=== PATIENT | male | born 1930 | race Caucasian/White ===

== ENCOUNTER 2017-03-15 12:53 | Emergency (ER) | payer MEDICARE, OTHER ==
[~2017-03-15] VITALS: Ht 172.7 cm; Wt 89.0 kg
[~2017-03-15 12:53] MED LIST: ASCO500C15 PO; ASPI-558 PO; BENA10TA46 PO; CARV25TA33 PO; CLOP75TA19 PO; CYAN100063 PO; DONE10TA15 PO; DUTA0.5C9 PO; FAMO10TA76 PO; FERR-22 PO; FURO-33 PO; ISOS30TA46 PO; LEVO25TA51 PO; LUTE20CA3 PO; NITR0.4T28 SL; PIOG1TAB8 PO; POTA20PA17 PO; PYRI50TA PO; SIMV40TA82 PO; TAMS0.4C20 PO; VITA-286 PO; [UNRECOGNIZED DRUG - CODE] PO
[2017-03-15 12:56] VITALS: Ht 172.7 cm; Wt 89.0 kg
--- OUTSIDE RECORDS SUMMARY | 2017-03-15 12:57 | XMS REPORT | Continuity of Care Document ---
Author Author [facility] Organization [facility] Address Unknown Phone Unavailable Allergies Active Description Code Type Severity Reaction Onset Reported/Identified Relationship to Patient Clinical Status Yes aspirin NKMA N/A epistaxis 03/22/2014 Yes glimepiride NKMA N/A SWELLING 05/11/2014 Yes pioglitazone NKMA N/A N/A 05/11/2014 Medications Problems Procedures Results Encounters ACCT No. Visit Date/Time Discharge Status Pt. Type Provider Facility Loc./Unit Complaint [id number] 02/03/2014 08:15:00 02/03/2014 23 :59:59 CLS Outpatient
--- OUTSIDE RECORDS SUMMARY | 2017-03-15 12:57 | XMS REPORT | Referral Summary ---
Author Author [facility], Family Medicine Organization [facility] Address Unknown Phone Unavailable Care Team Providers Care [place]f[employer] Technician Name Role Phone Mac Pat Primary Care Physician [phone] Encounter VC Date(s): 08/07/16 - 08/07/16 [facility], [address] [place] [id number] Discharge Diagnosis: Skin cancer of face Discharge Diagnosis: Diabetes Type 2, uncontrolled Discharge Diagnosis: Visit for suture removal Discharge Disposition: 01-Home or Self Care Attending Physician: Josias Pat MD Admitting Physician: Josias Pat MD Vital Signs Most recent to 1 oldest [Reference Range]: Temperature Tympanic 36.5 degC [36.6-38.1 degC] *LOW* (08/07/16 7:41 AM) Peripheral Pulse 81 bpm Rate [60-100 bpm] (08/07/16 7:41 AM) Blood Pressure 132/52 mmHg [90-140/60-90 mmHg] (08/07/16 7:41 AM) SpO2 97 % (08/07/16 7:41 AM) Problem List Condition Effective Dates Status Health Status Informant Acute Active bronchitis(Confirmed ) Coronary Active disease(Confirmed) Acute exacerbation Active of chronic obstructive pulmonary disease (COPD)(Confirmed) Alzheimer Active disease(Confirmed) Ataxic Active gait(Confirmed) Benign essential Active hypertension(Confirm ed) Hypertension, Active benign(Confirmed) BPH with urinary Active obstruction(Confirme d) CKD (chronic kidney Active disease) stage 3, GFR 30-59 ml/min(Confirmed) Chronic obstructive Active pulmonary disease (COPD)(Confirmed) CAD (coronary artery Active disease)(Confirmed) Dementia(Confirmed) Active Diabetes Type 2, Active uncontrolled(Confirm ed) Diabetic Active nephropathy(Confirme d) Dyspnea with Active exertion(Confirmed) Edema(Confirmed) Active Epistaxis(Confirmed) Active GERD Active (gastroesophageal reflux disease)(Confirmed) Hypercholesterolemia Active (Confirmed) Hypothyroid(Confirme Active d) Seborrheic Active keratoses, inflamed(Confirmed) Hyperlipemia(Confirm Active ed) 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 ) LAURA on Active CPAP(Confirmed) Palpitations(Confirm Active ed) Primary Active hypercholesterolemia (Confirmed) Seborrheic Active keratoses(Confirmed) Diabetes mellitus Active type 2, uncontrolled(Confirm ed) Need for Active wxndqouzxl-tyjrxvl-u ertussis (Tdap) vaccine(Confirmed) Allergies, Adverse Reactions, Alerts Substance Reaction Severity Status aspirin epistaxis Active glimepiride SWELLING Active pioglitazone1 Active 1swelling Medications atorvastatin 40 mg oral tablet See Instructions, TAKE 1 TABLET ONE TIME DAILY AT BEDTIME, # 90 tabs, eRx: [facility], TAKE 1 TABLET ONE TIME DAILY AT BEDTIME Start Date: 08/05/16 Status: Ordered BD Ultra- Fine [place] BD Ultra- Fine [place], See Instructions, dispense 3 mo supply-dx: 250.00, # 3 boxes, 3 Refill(s), Pharmacy: [facility], dispense 3 mo supply- dx: 250.00 Start Date: 07/06/14 Status: Ordered carvedilol 25 mg oral tablet See Instructions, TAKE 1/2 TABLET TWICE DAILY, # 90 tabs, eRx: [facility], TAKE 1/2 TABLET TWICE DAILY Start Date: 06/19/16 Status: Ordered clopidogrel 75 mg oral tablet See Instructions, TAKE 1 TABLET EVERY DAY, # 90 tabs, eRx: [facility], TAKE 1 TABLET EVERY DAY Start Date: 07/01/16 Status: Ordered donepezil 10 mg oral tablet See Instructions, TAKE 1 TABLET ONE TIME DAILY AT BEDTIME, # 90 tabs, eRx: [facility], TAKE 1 TABLET ONE TIME DAILY AT BEDTIME Start Date: 06/19/16 Status: Ordered Eliquis 5 mg oral tablet 5 mg 1 tabs, Oral, BID, cancel the 2.5 mg dose, # 180 tabs, 3 Refill(s), Pharmacy: [facility], 1 tabs Oral BID,x90 days,Instr:cancel the 2.5 mg dose Start Date: 05/23/16 Stop Date: 05/18/17 Status: Ordered Flomax 0.4 mg oral capsule See Instructions, TAKE 1 CAPSULE EVERY DAY (PLEASE SCHEDULE A COMPLETE PHYSICAL WITH DR PAT), # 90 caps, 2 Refill(s), eRx: [facility], TAKE 1 CAPSULE EVERY DAY (PLEASE SCHEDULE A COMPLETE PHYSICAL WITH DR PAT) Start Date: 11/07/15 Status: Ordered furosemide 20 mg oral tablet 1 tabs, Oral, Daily, Dr. Colmenares, 0 Refill(s) Start Date: 03/17/15 Status: Ordered ipratropium-albuterol 0.5 mg-2.5 mg/3 mLinhalation solution See Instructions, USE ONE AMPULE IN NEBULIZER 4 TIMES DAILY for COPD J43.9, # 360 mL, 0 Refill(s), Pharmacy: [id number] Start Date: 08/05/16 Status: Ordered isosorbide mononitrate 20 mg oral tablet See Instructions, TAKE 1 TABLET TWICE DAILY, # 180 tabs, 2 Refill(s), eRx: [facility], TAKE 1 TABLET TWICE DAILY Start Date: 11/07/15 Status: Ordered Januvia 50 mg oral tablet See Instructions, TAKE 1 TABLET EVERY DAY, # 90 tabs, eRx: [facility], TAKE 1 TABLET EVERY DAY Start Date: 07/23/16 Status: Ordered Klor-Con 10 10 mEq, Oral, Daily, Dr. Colmenares, 0 Refill(s) Start Date: 03/17/15 Status: Ordered Levemir FlexTouch 100 units/mL subcutaneous solution See Instructions, INJECT 37 UNITS SUBCUTANEOUSLY ONE TIME A DAY AT BEDTIME, # 45 mL, 1 Refill(s), eRx: [facility], INJECT 37 UNITS SUBCUTANEOUSLY ONE TIME A DAY AT BEDTIME Start Date: 03/01/16 Status: Ordered levothyroxine 50 mcg (0.05 mg) oral tablet See Instructions, TAKE 1 TABLET EVERY DAY, # 90 tabs, eRx: [facility], TAKE 1 TABLET EVERY DAY Start Date: 07/23/16 Status: Ordered lisinopril 2.5 mg oral tablet See Instructions, TAKE 1 TABLET EVERY DAY, # 90 tabs, eRx: [facility], TAKE 1 TABLET EVERY DAY Start Date: 07/30/16 Status: Ordered lutein 20 mg oral tablet 1 tabs, Oral, Daily, # 30 tabs, 0 Refill(s) Start Date: 05/10/14 Status: Ordered memantine 10 mg oral tablet 5 mg 0.5 tabs, Oral, BID, # 90 tabs, 3 Refill(s), Pharmacy: [facility], 0.5 tabs Oral BID,x90 days Start Date: 05/24/15 Stop Date: 05/18/16 Status: Ordered nitroglycerin 0.4 mg sublingual tablet 1 tabs, SubLingual, q5min, as needed for chest pain, not to exceed 3 doses/15 min--if pain persists, seek medical attention, # 100 tabs, 3 Refill(s), [facility], 1 tabs SubLingual q5min,PRN:as needed for chest pain,Instr: not to exceed 3... Start Date: 10/24/14 Status: Ordered pantoprazole 40 mg oral delayed release tablet See Instructions, TAKE 1 TABLET EVERY DAY, # 90 tabs, eRx: [facility], TAKE 1 TABLET EVERY DAY Start Date: 06/19/16 Status: Ordered Ventolin HFA 90 mcg/inh inhalation aerosol 1 puffs, Inhalation, QID, as needed for wheezing, # 3 Each, 3 Refill(s), Pharmacy: [facility], Discontinue Xopenex, 1 puffs Inhalation QID,PRN:as needed for wheezing Start Date: 05/17/15 Status: Ordered Vitamin B12 2,500 mcg, Oral, Daily, 0 Refill(s) Start Date: 05/10/14 Status: Ordered Results No data available for this section Immunizations Vaccine Date Refusal Reason tetanus/diphth/pertuss (Tdap) adult/adol 08/21/15 influenza virus vaccine, inactivated 08/23/15 influenza virus vaccine, inactivated1 08/22/14 influenza virus vaccine, live 08/03/13 influenza virus vaccine, live 09/01/12 pneumococcal 13-valent conjugate vaccine 08/23/15 pneumococcal 13-valent conjugate vaccine 09/13/14 pneumococcal 23-polyvalent vaccine 10/19/01 tetanus-diphth toxoids (Td) adult/adol 06/09/10 tetanus-diphth toxoids (Td) adult/adol 10/19/01 tetanus-diphth toxoids (Td) adult/adol 10/07/96 zoster vaccine live2 08/23/15 zoster vaccine live 02/06/09 1Result Comment: [08/22/2014] See scanned document 2Result Comment: [08/23/2015] Zostavax [id number] unit Procedures Procedure Date Related Diagnosis Body Site Colonoscopy 2008 Colonoscopy 2006 for small MO 2000 catherization x2 anteriograms 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 It begins in the basal cells, which are at the bottom of the outer skin layer (epidermis). CAUSES Sun exposure is the most common cause of basal cell carcinoma. Basal cell carcinoma occurs most often on parts of the body that are frequently exposed to the sun, including the: Scalp. Ears. Neck. Face. Arms. Backs of the hands. Legs. However, basal cell carcinoma can occur anywhere on the body. Rarely, tumors develop on areas not exposed to the sun. Other causes of basal cell carcinoma can include: Exposure to arsenic. Exposure to radiation. Certain genetic syndromes, such as xeroderma pigmentosum. RISK FACTORS People at highest risk for basal cell carcinoma include those with: Fair skin. Blonde or red hair. Blue, green, or herman eyes. Childhood freckling. Factors that increase your risk for basal cell carcinoma include: Sun exposure over long periods of time. Childhood sun exposure appears to be a more significant factor than sun exposure as an adult. Repeated sunburns. Use of tanning beds. Having a weakened immune system. SYMPTOMS Five signs of basal cell carcinoma are: An open sore that bleeds, oozes, or crusts. The sore may remain open for 3 or more weeks. This can be an early sign of basal cell carcinoma. Basal cell carcinoma can mimic a pimple that will not heal. A reddish or irritated area which may crust, itch, or cause discomfort. This may occur on areas expose d to the sun. These patches might be easier felt than seen. A shiny, pearly, or translucent bump that is pink, red, or white. The bump may also be moe, black, or brown, especially in dark haired people. These bumps can be confused with moles. A pink growth with a slightly elevated, rolled border, and a crusted indentation in the center. As the growth slowly enlarges, tiny blood vessels may develop on the surface. A scar-like white, yellow, or waxy area that looks like shiny, stretched skin. It often has irregular borders. This may be a sign of more aggressive basal cell carcinoma. DIAGNOSIS Your caregiver may be able to tell what is wrong by doing a physical exam. Often , a tissue sample (biopsy) is also taken. The tissue is examined under a microscope. TREATMENT The treatment for basal cell carcinoma depends on the type, size, location, and number of tumors. Possible treatments include: Mohs surgery. This is a procedure done by a skin doctor (night cleaner or Mohs surgeon) in his or her office. The cancerous cells are removed layer by layer. This treatment has a high cure rate. Surgical removal of the tumor. Freezing the tumor with liquid nitrogen (cryosurgery). Plastic surgery to remove the tumor, in the case of large tumors. Radiation. This may be used for tumors on the face. Photodynamic therapy. A chemical cream is applied to the skin and light exposure is used to activate the chemical. Chemical treatments, such as imiquimod cream and interferon injections. This may be used to remove superficial tumors with minimal scarring. Electrodesiccation and curettage. This involves alternately scraping and burning the tumor, using an electric current to control bleeding. Basal cell carcinoma can almost always be cured. It rarely spreads to other areas of the body (metastasizes). Basal cell carcinoma may come back at the same location (recur), but it can be treated again if this occurs. PREVENTION Avoid the sun between 10:00 a.m. and 4:00 pm when it is the strongest. Use a sunscreen or sunblock with a sun protection factor of 30 or greater. Apply sunscreen at least 30 minutes before exposure to the sun. Reapply sunscreen every 2 to 4 hours while you are outside, after swimming, and after excessive sweating. Always wear protective hats, clothing, and sunglasses with ultraviolet protection. Avoid tanning beds. HOME CARE INSTRUCTIONS Avoid unprotected sun exposure. Follow your caregiver's instructions for self-exams. Look for new spots or changes in your skin. Keep all follow-up appointments as directed by your caregiver. SEEK MEDICAL CARE IF: You notice any new spots or changes in your skin. You have had a basal cell carcinoma tumor removed and you notice a new growth in the same location. This information is not intended to replace advice given to you by your health care provider. Make sure you discuss any questions you have with your health care provider. Document Released: 05/16/2004 Document Revised: 05/11/2013 Document Reviewed: [employer] Patient Information 2016 [employer]. No follow up information was provided. Extracted from: Title: suture removal, skin cancer Author: Josias Pat MD Date: Impression and Plan Diagnosis Visit for suture removal ([id number] Z48.02, Discharge, Medical). Skin cancer of face ([id number] C44.319, Discharge, Medical). Diabetes Type 2, uncontrolled ([id number] E11.9, Discharge, Medical). Plan: 1) Sutures easily removed from the left arm. No infection noted. 2) Schedule a lesion excision for the left facial skin cancer. 3) No changes made to your routine meds.. Orders Orders (Selected) Outpatient Orders Ordered Office Visit Level 2 Est 45189: . Dx/Order Association Plan: Diagnosis: Diabetes Type 2, uncontrolled Comment: Ordered: Office Visit Level 2 Est 67186; 08/07/16 13:09:00 CDT, Skin cancer of face | Visit for suture removal | Diabetes Type 2, uncontrolled Diagnosis: Skin cancer of face Comment: Ordered: Office Visit Level 2 Est 86374; 08/07/16 13:09:00 CDT, Skin cancer of face | Visit for suture removal | Diabetes Type 2, uncontrolled Diagnosis: Visit for suture removal Comment: Ordered: Office Visit Level 2 Est 99304; 08/07/16 13:09:00 CDT, Skin cancer of face | Visit for suture removal | Diabetes Type 2, uncontrolled End of Orders ."
--- OUTSIDE RECORDS SUMMARY | 2017-03-15 12:57 | XMS REPORT | Referral Summary ---
Author Author [facility], Family Medicine Organization [facility] Address Unknown Phone Unavailable Care Team Providers Care Technician Preventative Medicine Name Role Phone Mac Pat Primary Care Physician [phone] Encounter VC Date(s): 08/21/15 - 08/21/15 [facility] [address] [place] [id number] Discharge Disposition: 01-Home or Self Care Attending Physician: Josias Pat MD Admitting Physician: Josias Pat MD Vital Signs Most recent to 1 oldest [Reference Range]: Temperature Tympanic 36.5 degC [36.6-38.1 degC] *LOW* (08/21/15 8:57 AM) Peripheral Pulse 88 bpm Rate [60-100 bpm] (08/21/15 8:57 AM) Blood Pressure 142/58 mmHg [90-140/60-90 mmHg] *HI* (08/21/15 8:57 AM) SpO2 97 % (08/21/15 8:57 AM) Problem List Condition Effective Dates Status [...] Active (gastroesophageal reflux disease)(Confirmed) Hypercholesterolemia Active (Confirmed) Hyperlipemia(Confirm Active ed) Hypothyroid(Confirme Active d) Seborrheic Active keratoses, inflamed(Confirmed) 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 ) LAURA on Active CPAP(Confirmed) Palpitations(Confirm Active ed) Primary Active hypercholesterolemia (Confirmed) Seborrheic Active keratoses(Confirmed) Diabetes mellitus Active type 2, uncontrolled(Confirm ed) Need for Active ibytlilxam-skpxmif-s ertussis (Tdap) vaccine(Confirmed) Allergies, Adverse Reactions, Alerts Substance Reaction Severity Status aspirin epistaxis Active glimepiride SWELLING Active pioglitazone1 Active 1swelling Medications atorvastatin 40 mg oral tablet See Instructions, TAKE 1 TABLET ONE TIME DAILY AT BEDTIME, # 90 tabs, 2 Refill(s ), eRx: [facility], TAKE 1 TABLET ONE TIME DAILY AT BEDTIME Start Date: 11/07/15 Status: Ordered BD Ultra- Fine Silke Pen Parlier BD Ultra- Fine Silke Pen Parlier, See Instructions, dispense 3 mo supply-dx: 250.00, # 3 boxes, 3 Refill(s), Pharmacy: [facility], dispense 3 mo supply- dx: 250.00 Start Date: 07/06/14 Status: Ordered carvedilol 25 mg oral tablet See Instructions, TAKE 1/2 TABLET TWICE DAILY, # 90 tabs, 2 Refill(s), eRx: [facility], TAKE 1/2 TABLET TWICE DAILY Start Date: 10/06/15 Status: Ordered donepezil 10 mg oral tablet 5 mg 0.5 tabs, Oral, Daily, X 90 days, # 45 tabs, 3 Refill(s), other reason (Rx) , TAKE 1 TABLET ONE TIME DAILY AT BEDTIME Start Date: 11/22/15 Stop Date: 11/16/16 Status: Ordered Flomax 0.4 mg oral capsule See Instructions, TAKE 1 CAPSULE EVERY DAY (PLEASE SCHEDULE A COMPLETE PHYSICAL WITH DR PAT), # 90 caps, 2 Refill(s), eRx: [facility], TAKE 1 CAPSULE EVERY DAY (PLEASE SCHEDULE A COMPLETE PHYSICAL WITH DR PAT) Start Date: 11/07/15 Status: Ordered furosemide 20 mg oral tablet 1 tabs, Oral, Daily, Dr. Colmenares, 0 Refill(s) Start Date: 03/17/15 Status: Ordered ipratropium-albuterol 0.5 mg-2.5 mg/3 mLinhalation solution 3 mL, Inhalation, QID, DX: COPD-496. Takes them as needed, and usually every evening, # 120 vials, 11 Refill(s), Pharmacy: [id number] Start Date: 07/18/15 Status: Ordered isosorbide mononitrate 20 mg oral tablet See Instructions, TAKE 1 TABLET TWICE DAILY, # 180 tabs, 2 Refill(s), eRx: [facility], TAKE 1 TABLET TWICE DAILY Start Date: 11/07/15 Status: Ordered Januvia 50 mg oral tablet See Instructions, TAKE 1 TABLET EVERY DAY, # 90 tabs, 3 Refill(s), eRx: [facility], TAKE 1 TABLET EVERY DAY Start Date: 07/17/15 Status: Ordered Klor-Con 10 10 mEq, Oral, Daily, Dr. Colmenares, 0 Refill(s) Start Date: 03/17/15 Status: Ordered Levemir FlexTouch 100 units/mL subcutaneous solution See Instructions, INJECT 37 UNITS SUBCUTANEOUSLY ONE TIME A DAY AT BEDTIME, # 45 mL, 1 Refill(s), eRx: [facility], INJECT 37 UNITS SUBCUTANEOUSLY ONE TIME A DAY AT BEDTIME Start Date: 03/01/16 Status: Ordered levothyroxine 50 mcg (0.05 mg) oral tablet See Instructions, TAKE 1 TABLET EVERY DAY, # 90 tabs, 2 Refill(s), eRx: [facility], TAKE 1 TABLET EVERY DAY Start Date: 11/07/15 Status: Ordered lisinopril 2.5 mg oral tablet 2.5 mg 1 tabs, Oral, Daily, # 90 tabs, 3 Refill(s), Pharmacy: [facility] Start Date: 08/21/15 Status: Ordered lutein 20 mg oral tablet 1 tabs, Oral, Daily, # 30 tabs, 0 Refill(s) Start Date: 05/10/14 Status: Ordered memantine 10 mg oral tablet 5 mg 0.5 tabs, Oral, BID, # 90 tabs, 3 Refill(s), Pharmacy: [facility], 0.5 tabs Oral BID,x90 days Start Date: 05/24/15 Stop Date: 05/18/16 Status: Ordered nitroglycerin 0.4 mg sublingual tablet 1 tabs, SubLingual, q5min, as needed for chest pain, not to exceed 3 doses/15 min--if pain persists, seek medical attention, # 100 tabs, 3 Refill(s), Pharmacy : [facility], 1 tabs SubLingual q5min,PRN:as needed for chest pain,Instr: not to exceed 3... Start Date: 10/24/14 Status: Ordered pantoprazole 40 mg oral delayed release tablet See Instructions, TAKE 1 TABLET EVERY DAY, # 90 tabs, 3 Refill(s), eRx: [facility], TAKE 1 TABLET EVERY DAY Start Date: 07/17/15 Status: Ordered Plavix 75 mg oral tablet See Instructions, TAKE 1 TABLET EVERY DAY, # 90 tabs, 3 Refill(s), eRx: [facility], TAKE 1 TABLET EVERY DAY Start Date: 07/17/15 Status: Ordered Ventolin HFA 90 mcg/inh inhalation aerosol 1 puffs, Inhalation, QID, as needed for wheezing, # 3 Each, 3 Refill(s), Pharmacy: [facility], Discontinue Xopenex, 1 puffs Inhalation QID,PRN:as needed for wheezing Start Date: 05/17/15 Status: Ordered Vitamin B12 2,500 mcg, Oral, Daily, 0 Refill(s) Start Date: 05/10/14 Status: Ordered Results Chemistry Most recent to 1 oldest [Reference Range]: Chol [0-199 mg/dL] 180 mg/dL (08/21/15 10:45 AM) Trig [0-149 mg/dL] 116 mg/dL (08/21/15 10:45 AM) HDL [40-84 mg/dL] 62 mg/dL (08/21/15 10:45 AM) LDL [0-130 mg/dL] 95 mg/dL (08/21/15 10:45 AM) VLDL Cholesterol 23 mg/dL [0-28 mg/dL] (08/21/15 10:45 AM) Cardiac Risk 2.9 [0.0-5.7] (08/21/15 10:45 AM) TSH [0.35-4.94] 2.82 (08/21/15 10:45 AM) Hgb A1c [4.1-5.6 %] 6.9 % *HI* (08/21/15 10:45 AM) eAvg Glucose 151.3 mg/dL (08/21/15 10:45 AM) Immunizations Vaccine Date Refusal Reason tetanus/diphth/pertuss (Tdap) [...] See scanned document 2Result Comment: [08/23/2015] Zostavax 36128 unit Procedures Procedure Date Related Diagnosis Body Site Colonoscopy 2008 Colonoscopy 2006 for small [place] 1999 catherization x2 anteriograms 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 This may cause the skin on your feet to become thinner, break easier, and heal more slowly. Your skin may become dry, and the skin may peel and crack. You may also have nerve damage in your legs and feet causing decreased feeling in them. You may not notice minor injuries to your feet that could lead to infections or more serious problems. Taking care of your feet is one of the most important things you can do for yourself. HOME CARE INSTRUCTIONS Wear shoes at all times, even in the house. Do not go barefoot. Bare feet are easily injured. Check your feet daily for blisters, cuts, and redness. If you cannot see the bottom of your feet, use a mirror or ask someone for help. Wash your feet with warm water (do not use hot water) and mild soap. Then pat your feet and the areas between your toes until they are completely dry. Do not soak your feet as this can dry your skin. Apply a moisturizing lotion or petroleum jelly (that does not contain alcohol and is unscented) to the skin on your feet and to dry, brittle toenails. Do not apply lotion between your toes. Trim your toenails straight across. Do not dig under them or around the cuticle. File the edges of your nails with an emery board or nail file. Do not cut corns or calluses or try to remove them with medicine. Wear clean socks or stockings every day. Make sure they are not too tight. Do not wear knee-high stockings since they may decrease blood flow to your legs. Wear shoes that fit properly and have enough cushioning. To break in new shoes, wear them for just a few hours a day. This prevents you from injuring your feet. Always look in your shoes before you put them on to be sure there are no objects inside. Do not cross your legs. This may decrease the blood flow to your feet. If you find a minor scrape, cut, or break in the skin on your feet, keep it and the skin around it clean and dry. These areas may be cleansed with mild soap and water. Do not cleanse the area with peroxide, alcohol, or iodine. When you remove an adhesive bandage, be sure not to damage the skin around it. If you have a wound, look at it several times a day to make sure it is healing. Do not use heating pads or hot water bottles. They may burn your skin. If you have lost feeling in your feet or legs, you may not know it is happening until it is too late. Make sure your health care provider performs a complete foot exam at least annually or more often if you have foot problems. Report any cuts, sores, or bruises to your health care provider immediately. SEEK MEDICAL CARE IF: You have an injury that is not healing. You have cuts or breaks in the skin. You have an ingrown nail. You notice redness on your legs or feet. You feel burning or tingling in your legs or feet. You have pain or cramps in your legs and feet. Your legs or feet are numb. Your feet always feel cold. SEEK IMMEDIATE MEDICAL CARE IF: There is increasing redness, swelling, or pain in or around a wound. There is a red line that goes up your leg. Pus is coming from a wound. You develop a fever or as directed by your health care provider. You notice a bad smell coming from an ulcer or wound. Document Released: 11/07/2001 Document Revised: 07/13/2014 Document Reviewed: [facility] Patient Information 2015 [employer]. This information is not intended to replace advice given to you by your health care provider. Make sure you discuss any questions you have with your health care provider. Diabetic Nephropathy Diabetic nephropathy is a complication of diabetes that leads to damaged kidneys. It develops slowly. The function of healthy kidneys is to filter and clean blood. Kidneys also get rid of body waste products and extra fluid. When the kidney filters are damaged, there is protein loss in the urine, a decline in kidney function, a buildup of kidney waste products and fluid, and high blood pressure. The damage progresses until the kidneys fail. RISK FACTORS High blood pressure (hypertension). High blood sugar (hyperglycemia). Family history. Aging. Obstruction problems affecting the kidneys, the tubes that drain the kidneys (ureters), or the bladder. Taking certain drugs or medicines. SYMPTOMS Symptoms may not be seen or felt for many years. You may not notice any signs of kidney failure until your kidneys have lost much of their ability to function. An early sign of damage is when small amounts of protein (albumin) leak into the urine. However, this can only be found through a urine test. Without physical symptoms, a urine test is often not performed. When the kidneys fail, you may feel one or more of the following: Swelling of the hands and feet from the extra fluid in your body. Constant upset stomach. Constant fatigue. DIAGNOSIS When someone has diabetes, screening tests are done to look for any early signs of problems before symptoms develop and before damage has already been done. These tests may include: Annual urine tests to screen for trace amounts of protein in the urine ( microalbuminuria). Urine collectionover 24 hours to measure kidney function. Blood tests that measure kidney function. Your caregiver is aware that problems other than diabetes can damage kidneys. If screening tests show early kidney damage, but it is thought that a different problem is causing the damage, other tests may be performed. Examples of these tests include: An ultrasound of your kidney. Taking a tissue sample (biopsy) from the kidney. TREATMENT The goal of treatment is to prevent or slow down damage to your kidneys. Controlling hypertension and hyperglycemia is critical. Your goal is to maintain a blood pressure below 120/80. If you have certain other medical problems, this goal may be different. Talk to your caregiver to make sure that your blood pressure goal is right for your needs. Regular testing of your blood glucose at home is important. Your goal is to have a normal blood glucose (110 or less when fasting) as often as possible. In addition, maintaining your hemoglobin A1c level at less than 7% reduces your risk for complications, including kidney damage. Common treatments include: Dieting by controlling what you eat as well as the portion sizes. Exercising to control blood pressure and blood glucose. Taking medicines. Giving yourself insulin injections if your caregiver feels that it is necessary. Getting early treatment for urinary tract infections. Regularly following up with your caregiver. If your disease progresses to end-stage kidney failure, you will need dialysis or a transplant. Dialysis can be done in 1 of 2 ways: Hemodialysis. Your blood flows from a tube in your arm through a machine. The machine filters waste and extra fluid. The clean blood flows back into your arm. Peritoneal dialysis. Your abdomen is filled with a special fluid. The fluid collects waste products and extra fluid from your blood. The fluid is then drained from your abdomen and discarded. SEEK MEDICAL CARE IF: You are having problems keeping your blood glucose in the goal range. You have swelling of the hands or feet. You have weakness. You have muscles spasms. You have a constant upset stomach. You feel tired all the time and this is not normal for you. SEEK IMMEDIATE MEDICAL CARE IF: You have unusual dizziness or weakness. You have excessive sleepiness. You have a seizure or convulsion. You have severe, painful muscle spasms. You have shortness of breath or trouble breathing. You pass out or have a fainting episode. You have chest pains. MAKE SURE YOU: Understand these instructions. Will watch your condition. Will get help right away if you are not doing well or get worse. Document Released: 11/29/2008 Document Revised: 07/13/2014 Document Reviewed: [employer] Patient Information 2015 [employer] [facility]. This information is not intended to replace advice given to you by your health care provider. Make sure you discuss any questions you have with your health care provider. Physical Medicine and Rehabilitation Diabetes and Exercise Diabetes mellitus is a common, chronic disease, in which the pancreas is unable to adequately control blood glucose (sugar) levels. There are 2 types of diabetes. Type 1 diabetes patients are unable to produce insulin, a hormone that causes sugar in the blood to be stored in the body. People with type 1 diabetes may compensate by giving themselves injections of insulin. Type 2 diabetes involves not producing adequate amounts of insulin to control blood glucose levels. People with type 2 diabetes control their blood glucose by monitoring their food intake or by taking medicine. Exercise is an important part of diabetes treatment. During exercise, the muscles use a greater amount of glucose from the blood for energy. This lowers your blood glucose, which is the same effect you would get from taking insulin. It has been shown that endurance athletes are more sensitive to insulin than inactive people. SYMPTOMS Many people with a mild case of diabetes have no symptoms. However, if left uncontrolled, diabetes can lead to several complications that could be prevented with treatment of the disease. General symptoms of diabetes include: Frequent urination (polyuria). Frequent thirst and drinking (polydipsia). Increased food consumption (polyphagia). Fatigue. Poor exercise performance. Blurred vision. Inflammation of the vagina (vaginitis) caused by fungal infections. Skin infections (uncommon). Numbness in the feet, caused by nerve injury. Kidney disease. CAUSES The cause of most cases of diabetes is unknown. In children, diabetes is often due to an autoimmune response to the cells in the pancreas that make insulin. It is also linked with other diseases, such as cystic fibrosis. Diabetes may have a genetic link. PREVENTION Athletes should strive to begin exercise with blood glucose in a well- controlled state. Feet should always be kept clean and dry. Activities in which low blood sugar levels cannot be treated easily (scuba diving, rock climbing, swimming) should be avoided. Anticipate alterations in diet or training to avoid low blood sugar ( hypoglycemia) and high blood sugar (hyperglycemia). Athletes should try to increase sugar consumption after strenuous exercise to avoid hypoglycemia. Short-acting insulin should not be injected into an actively exercising muscle. The athlete should rest the injection site for about 1 hour after exercise. Patients with diabetes should get routine checkups of the feet to prevent complications. PROGNOSIS Exercise provides many benefits to the person with diabetes: Reduced body fat. Lower blood pressure. Often, reduced need for medicines. Improved exercise tolerance. Lower insulin levels. Weight loss. Improved lipid profile (decreased cholesterol and low-density lipoproteins) . RELATED COMPLICATIONS If performed incorrectly, exercise can result in complications of diabetes: Poor control of blood sugar, when exercise is performed at the wrong time. Increase in renal disease, from loss of body fluids (dehydration). Increased risk of nerve injury (neuropathy) when performing exercises that increase foot injury. Increased risk of eye problems when performing activities that involve breath holding or lowering or jarring the head. Increased risk of sudden from exercise in patients with heart disease. Worsening of hypertension with heavy lifting (more than 10 lb/4.5 kg). Altered blood glucose and insulin dose as a result of mild illness that produces loss of appetite. Altered uptake of insulin after injection when insulin injection site is changed. NOTE: Exercise can lower blood glucose effectively, but the effects are short- lasting (no more than a couple of days). Exercise has been shown to improve your sensitivity to insulin. This may alter how your body responds to a given dose of injected insulin. It is important for every patient with diabetes to know how his or her body may react to exercise, and to adjust insulin dosages accordingly. TREATMENT Eat about 1 to 3 hours before exercise. Check blood glucose immediately before and after exercise. Stop exercise if blood glucose is more than 250 mg/dL. Stop exercise if blood glucose is less than 100 mg/dL. Do not exercise within 1 hour of an insulin injection. Be prepared to treat low blood glucose while exercising. Keep some sugar product with you, such as a candy bar. For prolonged exercise, use a sports drink to maintain your glucose level. Replace used-up glucose in the body after exercise. Consume fluids during and after exercise to avoid dehydration. SEEK MEDICAL CARE IF: You have vision changes after a run. You notice a loss of sensation in your feet after exercise. You have increased numbness, tingling, or pins and needles sensations after exercise. You have chest pain during or after exercise. You have a fast, irregular heartbeat (palpitations) during or after exercise. Your exercise tolerance gets worse. You have fainting or dizzy spells for brief periods during or after exercise. Document Released: 11/10/2006 Document Revised: 03/27/2015 Document Reviewed: [employer] Patient Information 2015 [employer]. This information is not intended to replace advice given to you by your health care provider. Make sure you discuss any questions you have with your health care provider. No follow up information was provided. Extracted from: Title: Male physical Author: Josias Pat MD Date: 08/21/15 Impression and Plan Diagnosis Alzheimer disease (ICD9 331.0, Working, Medical). Benign essential hypertension (ICD9 401.1, Working, Medical). 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 Chronic obstructive pulmonary disease (COPD) (ICD9 496, Working, Medical). CKD (chronic kidney disease) stage 3, GFR 30-59 ml/min (ICD9 585.3, Working, Medical). Coronary disease (ICD9 414.00, Working, Medical). Diabetes Type 2, uncontrolled (ICD9 250.00, Working, Medical). Diabetic nephropathy (ICD9 250.40, Working, Medical). Edema (ICD9 782.3, Working, Medical). Hypercholesterolemia (ICD9 272.0, Working, Medical). Need for hhiztegmtd-qzqzpmc-aqvvecyig (Tdap) vaccine (ICD9 V06.1, Working, Medical). LAURA on CPAP (ICD9 327.23, Working, Medical). Plan: 1) Continue healthy diet, and get daily exercise. 2) Continue your current meds. 3) Tdap vaccine given today. 4) See me in 3 months and as needed. 5) Get your flu sot at the pharmacy.. Orders Orders (Selected) Outpatient Orders Ordered Boostrix (Tdap): 0.5 mL, IntraMuscular, Once Office Visit Level 5 Est 96774: Future (On Hold) Albumin/Creatinine Ratio, Urine: Hgb A1c: Lipid Panel: TSH 3rd Generation: Prescriptions Prescribed lisinopril 2.5 mg oral tablet: 2.5 mg=1 tabs, Oral, Daily, 90 tabs, 3 Refill(s). Dx/Order Association Plan: Diagnosis: Alzheimer disease Comment: Diagnosis: BPH with urinary obstruction Comment: Ordered: Office Visit Level 5 Est [id number]; 08/21/15 10:05:00 CDT, Diabetes Type 2, uncontrolled | Coronary disease | Hypercholesterolemia | Benign essential hypertension | BPH with urinary obstruction Diagnosis: Benign essential hypertension Comment: Ordered: Office Visit Level 5 Est [id number]; 08/21/15 10:05:00 CDT, Diabetes Type 2, uncontrolled | Coronary disease | Hypercholesterolemia | Benign essential hypertension | BPH with urinary obstruction Diagnosis: CKD (chronic kidney disease) stage 3, GFR 30-59 ml/min Comment: Diagnosis: Chronic obstructive pulmonary disease (COPD) Comment: Diagnosis: Coronary disease Comment: Ordered: Office Visit Level 5 Est [id number]; 08/21/15 10:05:00 CDT, Diabetes Type 2, uncontrolled | Coronary disease | Hypercholesterolemia | Benign essential hypertension | BPH with urinary obstruction Diagnosis: Diabetes Type 2, uncontrolled Comment: Ordered: Office Visit Level 5 Est [id number]; 08/21/15 10:05:00 CDT, Diabetes Type 2, uncontrolled | Coronary disease | Hypercholesterolemia | Benign essential hypertension | 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 Comment: Diagnosis: Edema Comment: Diagnosis: Hypercholesterolemia Comment: Ordered: Office Visit Level 5 Est [id number]; 08/21/15 10:05:00 CDT, Diabetes Type 2, uncontrolled | Coronary disease | Hypercholesterolemia | Benign essential hypertension | BPH with urinary obstruction Diagnosis: Need for ctvruimmkk-hpioqox-vyxxhvegl (Tdap) vaccine Comment: Ordered: Boostrix (Tdap); 0.5 mL, IntraMuscular, Once, First Dose : 08/21/15 11:00:00 CDT, Stop Date: 08/21/15 11:00:00 CDT Diagnosis: LAURA on CPAP Comment: Diagnosis: Hypercholesterolemia Comment: Diagnosis: Diabetes Type 2, uncontrolled Comment: Diagnosis: Diabetic nephropathy Comment: Diagnosis: Adult hypothyroidism Comment: Additional Orders: Comment: Ordered: lisinopril 2.5 mg oral tablet,2.5 mg 1 tabs, Oral, Daily, # 90 tabs, 3 Refill(s), Pharmacy: [facility] End of Orders ."
--- OUTSIDE RECORDS SUMMARY | 2017-03-15 12:57 | XMS REPORT | Referral Summary ---
Author Author [facility] Organization [facility] Address Unknown Phone Unavailable Care Team Providers Care Waste/Materials Exchange Specialist Name Role Phone Mac Pat Primary Care Physician [phone] Encounter [facility] [phone] Date(s): 05/18/15 - 05/18/15 [facility] [address], [facility] [address] [place], [place] [address] Discharge Diagnosis: LAURA on CPAP Discharge Disposition: 01-Home or Self Care Attending Physician: Ludy Escalera Admitting Physician: Ludy Escalera Referring Physician: Josias Pat MD Vital Signs Most recent to 1 oldest [Reference Range]: Peripheral Pulse 64 bpm Rate [60-100 bpm] (05/18/15 10:12 AM) Blood Pressure 142/58 mmHg [90-140/60-90 mmHg] *HI* (05/18/15 10:12 AM) SpO2 96 % (05/18/15 10:12 AM) Problem List Condition Effective Dates Status [...] type 2, uncontrolled(Confirm ed) Need for Active ptponjvehb-xjswabx-o ertussis (Tdap) vaccine(Confirmed) Allergies, Adverse Reactions, Alerts Substance Reaction Severity Status aspirin epistaxis Active glimepiride SWELLING Active pioglitazone1 Active 1swelling Medications atorvastatin 40 mg oral tablet See Instructions, TAKE 1 TABLET ONE TIME DAILY AT BEDTIME, # 90 tabs, 2 Refill(s ), eRx: [facility], TAKE 1 TABLET ONE TIME DAILY AT BEDTIME Start Date: 11/07/15 Status: Ordered BD Ultra- Fine [place] BD Ultra- Fine [place], See Instructions, dispense 3 mo supply-dx: 250.00, # 3 boxes, 3 Refill(s), [facility], dispense 3 mo supply- dx: 250.00 Start Date: 07/06/14 Status: Ordered carvedilol 25 mg oral tablet See Instructions, TAKE 1/2 TABLET TWICE DAILY, # 90 tabs, 2 Refill(s), eRx: [facility], TAKE 1/2 TABLET TWICE [...] PAT), # 90 caps, 2 Refill(s), eRx: [facility], TAKE 1 CAPSULE EVERY DAY (PLEASE SCHEDULE A COMPLETE PHYSICAL WITH DR PAT) Start Date: 11/07/15 Status: Ordered furosemide 20 mg oral tablet 1 tabs, Oral, Daily, Dr. Colmenares, 0 Refill(s) Start Date: 03/17/15 Status: Ordered ipratropium-albuterol 0.5 mg-2.5 mg/3 mLinhalation solution 3 mL, Inhalation, QID, DX: [id number]., # 120 vials, 11 Refill(s), Pharmacy: [id number] Start Date: 07/18/15 Status: Ordered isosorbide mononitrate 20 mg oral tablet See Instructions, TAKE 1 TABLET TWICE DAILY, # 180 tabs, 2 Refill(s), eRx: [facility], TAKE 1 TABLET TWICE DAILY Start Date: 11/07/15 Status: Ordered Januvia 50 mg oral tablet See Instructions, TAKE 1 TABLET EVERY DAY, # 90 tabs, 3 Refill(s), eRx: [facility], TAKE 1 TABLET EVERY DAY Start Date: 07/17/15 Status: Ordered Klor-Con 10 10 mEq, Oral, Daily, Dr. Colmenares, 0 Refill(s) Start Date: 03/17/15 Status: Ordered Levemir FlexTouch 100 units/mL subcutaneous solution See Instructions, INJECT 37 UNITS SUBCUTANEOUSLY ONE TIME A DAY AT BEDTIME, # 30 mL, 1 Refill(s), Pharmacy: [facility], INJECT 37 UNITS SUBCUTANEOUSLY ONE TIME A DAY AT BEDTIME Start Date: 11/08/15 Status: Ordered levothyroxine 50 mcg (0.05 mg) oral tablet See Instructions, TAKE 1 TABLET EVERY DAY, # 90 tabs, 2 Refill(s), eRx: [facility], TAKE 1 TABLET EVERY DAY Start Date: 11/07/15 Status: Ordered lisinopril 2.5 mg oral tablet 2.5 mg 1 tabs, Oral, Daily, # 90 tabs, 3 Refill(s), Pharmacy: [facility] Start Date: 08/21/15 Status: Ordered lutein 20 mg oral tablet 1 tabs, Oral, Daily, # 30 tabs, 0 Refill(s) Start Date: 05/10/14 Status: Ordered memantine 10 mg oral tablet 5 mg 0.5 tabs, Oral, BID, # 90 tabs, 3 Refill(s), Pharmacy: [facility], 0.5 tabs Oral BID,x90 [...] DAY, # 90 tabs, 3 Refill(s), eRx: [facility], TAKE 1 TABLET EVERY DAY Start Date: 07/17/15 Status: Ordered Plavix 75 mg oral tablet See Instructions, TAKE 1 TABLET EVERY DAY, # 90 tabs, 3 Refill(s), eRx: [facility], TAKE 1 TABLET EVERY DAY Start Date: 07/17/15 Status: Ordered Spiriva 18 mcg inhalation capsule See Instructions, INHALE THE CONTENTS OF ONE CAPSULE IN 2 INHALATIONS DAILY NEEDED FOR DIFFICULTY IN BREATHING, # 90 caps, 1 Refill(s), eRx: [facility], INHALE THE CONTENTS OF ONE CAPSULE IN 2 INHALATIONS DAILY NEEDED FOR... 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 He did have some hypoxemia and breakthrough desaturation on his overnight oximetry and his pressure will be increased to 13cm today. Will have him repeat the oximetry in 1 month.Will call him with results. Plan to keep his follow-up in 1 year that has already been scheduled. Order to [facility] for supplies as needed, including a new hose. Continue CPAP with all sleep at 13cm. -CPAP download reviewed with the patient and patient is complying with and benefitting from treatment. -Avoid driving , partaking in hazardous activities, or operating heavy machinery if drowsy. -Continue appropriate cleaning of the machine/humidifier and update of all supplies including mask , tubing , and filters . -Return for follow-up in 1 year . Return/call sooner if any problems arise in the meantime.
--- OUTSIDE RECORDS SUMMARY | 2017-03-15 12:57 | XMS REPORT | Referral Summary ---
Author Author [facility] Organization [facility] Address Unknown Phone Unavailable Care Team Providers Care Water Purifier Name Role Phone Mac Reveles Primary Care Physician [phone] Encounter Date(s): 04/20/15 - 04/20/15 [facility] [address], [facility] [address] [place], [place] [address] Discharge Diagnosis: LAURA on CPAP Discharge Disposition: 01-Home or Self Care Attending Physician: Ludy Escalera Admitting Physician: Ludy Escalera Vital Signs Most recent to 1 oldest [Reference Range]: Peripheral Pulse 66 bpm Rate [60-100 bpm] (04/20/15 9:29 AM) Blood Pressure 112/62 mmHg [90-140/60-90 mmHg] (04/20/15 9:29 AM) SpO2 95 % (04/20/15 9:29 AM) Problem List Condition Effective Dates Status [...] type 2, uncontrolled(Confirm ed) Need for Active ljzlcecxcz-vahrryh-h ertussis (Tdap) vaccine(Confirmed) Allergies, Adverse Reactions, Alerts Substance Reaction Severity Status aspirin epistaxis Active glimepiride SWELLING Active pioglitazone1 Active 1swelling Medications atorvastatin 40 mg oral tablet 40 mg 1 tabs, Oral, Bedtime (once a day), # 90 tabs, 0 Refill(s), Pharmacy: [facility], Instruct patient to schedule a complete physical with Dr. reveles, 1 tabs Oral Bedtime (once a day) Start Date: 04/24/15 Status: Ordered BD Ultra- Fine [place] BD Ultra- Fine [place], See Instructions, dispense 3 mo supply-dx: 250.00, # 3 boxes, 3 Refill(s), Pharmacy: [facility], dispense 3 mo supply- dx: 250.00 Start Date: 07/06/14 Status: Ordered carvedilol 25 mg oral tablet 0.5 tabs, Oral, BID, # 90 tabs, 3 Refill(s), Pharmacy: [facility], 0.5 tabs Oral BID Start Date: 07/06/14 Status: Ordered donepezil 10 mg oral tablet See Instructions, TAKE 1 TABLET ONE TIME DAILY AT BEDTIME, # 90 tabs, 3 Refill(s ), eRx: [facility], TAKE 1 TABLET ONE TIME DAILY AT BEDTIME Start Date: 07/25/15 Status: Ordered Flomax 0.4 mg oral capsule See Instructions, TAKE 1 CAPSULE EVERY DAY. PLEASE SCHEDULE A COMPLETE PHYSICAL WITH DR REVELES, # 90 caps, eRx: [facility], TAKE 1 CAPSULE EVERY DAY. PLEASE SCHEDULE A COMPLETE PHYSICAL WITH DR REVELES Start Date: 07/17/15 Status: Ordered furosemide 20 mg oral tablet 1 tabs, Oral, Daily, Dr. Colmenares, 0 Refill(s) Start Date: 03/17/15 Status: Ordered ipratropium-albuterol 0.5 mg-2.5 mg/3 mLinhalation solution 3 mL, Inhalation, QID, DX: [id number]., # 120 vials, 11 Refill(s), Pharmacy: [facility] Start Date: 07/18/15 Status: Ordered isosorbide mononitrate 20 mg oral tablet See Instructions, TAKE 1 TABLET TWICE DAILY, # 180 tabs, 1 Refill(s), eRx: [facility], TAKE 1 TABLET TWICE DAILY Start Date: 07/03/15 Status: Ordered Januvia 50 mg oral tablet See Instructions, TAKE 1 TABLET EVERY DAY, # 90 tabs, 3 Refill(s), eRx: [facility], TAKE 1 TABLET EVERY DAY Start Date: 07/17/15 Status: Ordered Klor-Con 10 10 mEq, Oral, Daily, Dr. Colmenares, 0 Refill(s) Start Date: 03/17/15 Status: Ordered Levemir FlexTouch 100 units/mL subcutaneous solution See Instructions, INJECT 37 UNITS SUBCUTANEOUSLY ONE TIME A DAY AT BEDTIME, # 30 mL, 1 Refill(s), eRx: [facility], INJECT 37 UNITS SUBCUTANEOUSLY ONE TIME A DAY AT BEDTIME Start Date: 08/07/15 Status: Ordered levothyroxine 50 mcg (0.05 mg) oral tablet 1 tabs, Oral, Daily, # 90 tabs, 3 Refill(s), Pharmacy: [facility], 1 tabs Oral Daily,x90 days Start Date: 07/06/14 Stop Date: 07/01/15 Status: Ordered lisinopril 2.5 mg oral tablet 2.5 mg 1 tabs, Oral, Daily, # 90 tabs, 3 Refill(s), Pharmacy: [facility] Start Date: 08/21/15 Status: Ordered lutein 20 mg oral tablet 1 tabs, Oral, Daily, # 30 tabs, 0 Refill(s) Start Date: 05/10/14 Status: Ordered memantine 10 mg oral tablet 5 mg 0.5 tabs, Oral, BID, # 90 tabs, 3 Refill(s), Pharmacy: [facility], 0.5 tabs Oral BID,x90 [...] DAY, # 90 tabs, 3 Refill(s), eRx: [facility], TAKE 1 TABLET EVERY DAY Start Date: 07/17/15 Status: Ordered Plavix 75 mg oral tablet See Instructions, TAKE 1 TABLET EVERY DAY, # 90 tabs, 3 Refill(s), eRx: [facility], TAKE 1 TABLET EVERY DAY Start Date: 07/17/15 Status: Ordered Spiriva 18 mcg inhalation capsule See Instructions, INHALE THE CONTENTS OF ONE CAPSULE IN 2 INHALATIONS DAILY NEEDED FOR DIFFICULTY IN BREATHING, # 90 caps, 1 Refill(s), eRx: [facility], INHALE THE CONTENTS OF ONE CAPSULE IN 2 INHALATIONS DAILY NEEDED FOR... 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 Will check an overnight oximetry to assess oxygenation and call him with results. Continue CPAP with all sleep at 12cm. Call [facility] for a new hose. F/u in 1 year. -CPAP download reviewed with the patient and [...]
--- OUTSIDE RECORDS SUMMARY | 2017-03-15 12:58 | XMS REPORT | Referral Summary ---
Author Author [facility], Family Medicine Organization [facility] Address Unknown Phone Unavailable Care Team Providers Care J2Ee Engineer Name Role Phone Mac Pat Primary Care Physician [phone] Encounter VC Date(s): 05/22/15 - 05/22/15 [facility], [address] [place] [id number] Discharge Disposition: 01-Home or Self Care Attending Physician: Josias Pat MD Admitting Physician: Josias Pat MD Referring Physician: Josias Pat MD Vital Signs Most recent to 1 oldest [Reference Range]: Temperature Tympanic 36.8 degC [36.6-38.1 degC] (05/22/15 10:23 AM) Peripheral Pulse 60 bpm Rate [60-100 bpm] (05/22/15 10:23 AM) Blood Pressure 124/68 mmHg [90-140/60-90 mmHg] (05/22/15 10:23 AM) Problem List Condition Effective Dates Status [...] type 2, uncontrolled(Confirm ed) Need for Active dtikxakdlv-iczzbws-h ertussis (Tdap) vaccine(Confirmed) Allergies, Adverse Reactions, Alerts Substance Reaction Severity Status aspirin epistaxis Active glimepiride SWELLING Active pioglitazone1 Active 1swelling Medications atorvastatin 40 mg oral tablet See Instructions, TAKE 1 TABLET ONE TIME DAILY AT BEDTIME, # 90 tabs, 2 Refill(s ), eRx: [facility], TAKE 1 TABLET ONE TIME DAILY AT BEDTIME Start Date: 11/07/15 Status: Ordered BD Ultra- Fine Sil[place] BD Ultra- Fine Sil[place], See Instructions, dispense 3 mo supply-dx: 250.00, # 3 boxes, 3 Refill(s), [facility] 3 mo supply- dx: 250.00 Start Date: 07/06/14 Status: Ordered carvedilol 25 mg oral tablet See Instructions, TAKE 1/2 TABLET TWICE DAILY, # 90 tabs, 2 Refill(s), eRx: [facility], TAKE 1/2 TABLET TWICE [...] PAT), # 90 caps, 2 Refill(s), eRx: [facility], TAKE 1 CAPSULE EVERY DAY (PLEASE SCHEDULE A COMPLETE PHYSICAL WITH DR PAT) Start Date: 11/07/15 Status: Ordered furosemide 20 mg oral tablet 1 tabs, Oral, Daily, Dr. Colmenares, 0 Refill(s) Start Date: 03/17/15 Status: Ordered ipratropium-albuterol 0.5 mg-2.5 mg/3 mLinhalation solution 3 mL, Inhalation, QID, DX: [id number]., # 120 vials, 11 Refill(s), Pharmacy: [id number] Start Date: 07/18/15 Status: Ordered isosorbide mononitrate 20 mg oral tablet See Instructions, TAKE 1 TABLET TWICE DAILY, # 180 tabs, 2 Refill(s), eRx: [facility], TAKE 1 TABLET TWICE DAILY Start Date: 11/07/15 Status: Ordered Januvia 50 mg oral tablet See Instructions, TAKE 1 TABLET EVERY DAY, # 90 tabs, 3 Refill(s), eRx: [facility], TAKE 1 TABLET EVERY DAY Start Date: 07/17/15 Status: Ordered Klor-Con 10 10 mEq, Oral, Daily, Dr. Colmenares, 0 Refill(s) Start Date: 03/17/15 Status: Ordered Levemir FlexTouch 100 units/mL subcutaneous solution See Instructions, INJECT 37 UNITS SUBCUTANEOUSLY ONE TIME A DAY AT BEDTIME, # 30 mL, 1 Refill(s), Pharmacy: [facility], INJECT 37 UNITS SUBCUTANEOUSLY ONE TIME A DAY AT BEDTIME Start Date: 11/08/15 Status: Ordered levothyroxine 50 mcg (0.05 mg) oral tablet See Instructions, TAKE 1 TABLET EVERY DAY, # 90 tabs, 2 Refill(s), eRx: [facility], TAKE 1 TABLET EVERY DAY Start Date: 11/07/15 Status: Ordered lisinopril 2.5 mg oral tablet 2.5 mg 1 tabs, Oral, Daily, # 90 tabs, 3 Refill(s), Pharmacy: [facility] Start Date: 08/21/15 Status: Ordered lutein 20 mg oral tablet 1 tabs, Oral, Daily, # 30 tabs, 0 Refill(s) Start Date: 05/10/14 Status: Ordered memantine 10 mg oral tablet 5 mg 0.5 tabs, Oral, BID, # 90 tabs, 3 Refill(s), Pharmacy: [facility], 0.5 tabs Oral BID,x90 [...] DAY, # 90 tabs, 3 Refill(s), eRx: [facility], TAKE 1 TABLET EVERY DAY Start Date: 07/17/15 Status: Ordered Plavix 75 mg oral tablet See Instructions, TAKE 1 TABLET EVERY DAY, # 90 tabs, 3 Refill(s), eRx: [facility], TAKE 1 TABLET EVERY DAY Start Date: 07/17/15 Status: Ordered Spiriva 18 mcg inhalation capsule See Instructions, INHALE THE CONTENTS OF ONE CAPSULE IN 2 INHALATIONS DAILY NEEDED FOR DIFFICULTY IN BREATHING, # 90 caps, 1 Refill(s), eRx: [facility], INHALE THE CONTENTS OF ONE CAPSULE IN 2 INHALATIONS DAILY NEEDED FOR... Start Date: 07/17/15 Status: Ordered Ventolin HFA 90 mcg/inh inhalation aerosol 1 puffs, Inhalation, QID, as needed for wheezing, # 3 Each, 3 Refill(s), Pharmacy: [facility], Discontinue Xopenex, 1 puffs Inhalation QID,PRN:as needed for wheezing Start Date: 05/17/15 Status: Ordered Vitamin B12 2,500 mcg, Oral, Daily, 0 Refill(s) Start Date: 05/10/14 Status: Ordered Results Chemistry Most recent to 1 oldest [Reference Range]: Sodium Lvl [135-144 141 mEq/L mEq/L] (05/22/15 11:00 AM) Potassium Lvl 3.9 mEq/L [3.5-5.2 mEq/L] (05/22/15 11:00 AM) Chloride [99-111 107 mEq/L mEq/L] (05/22/15 11:00 AM) CO2 [23-31 mEq/L] 29 mEq/L (05/22/15 11:00 AM) AGAP [3-20] 5 (05/22/15 11:00 AM) BUN [8-26 mg/dL] 24 mg/dL (05/22/15 11:00 AM) Glucose Lvl [70-99 179 mg/dL mg/dL] *HI* (05/22/15 11:00 AM) Creatinine Lvl 1.25 mg/dL [0.72-1.25 mg/dL] (05/22/15 11:00 AM) eGFR [>60 mL/min] 55 mL/min 1 *ABN* (05/22/15 11:00 AM) Calcium Lvl 9.3 mg/dL [8.9-10.5 mg/dL] (05/22/15 11:00 AM) 1Result Comment: Multiply eGFR results by 1.21 for race. 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 It causes a person to lose the ability to remember things and make good decisions. As the disease progresses, the person is unable to take care of himself or herself and needs more and more help to do simple tasks. Taking care of someone with Alzheimer's disease can be very challenging and overwhelming. MEMORY LOSS AND CONFUSION Memory loss and confusion is mild in the beginning stages of the disease. Both of these problems become more severe as the disease progresses. Eventually, the person will not recognize places or even close family members and friends. Stay calm. Respond with a short explanation. Long explanations can be overwhelming and confusing. Avoid corrections that sound like scolding. Try not to take it personally, even if the person forgets your name. BEHAVIOR CHANGES Behavior changes are part of the disease. The person may develop depression, anxiety, anger, hallucinations, or other behavior changes. These changes can come on suddenly and may be in response to pain, infection, changes in the environment (temperature, noise), overstimulation, or feeling lost or scared. Try not to take behavior changes personally. Remain calm and patient. Do not argue or try to convince the person about a specific point. This will only make him or her more agitated. Know that the behavior changes are part of the disease process and try to work through it. TIPS TO REDUCE FRUSTRATION Schedule wisely by making appointments and doing daily tasks, like bathing and dressing, when the person is at his or her best. Take your time. Simple tasks may take a lot longer, so be sure to allow for plenty of time. Limit choices. Too many choices can be overwhelming and stressful for the person. Involve the person in what you are doing. Stick to a routine. Avoid new or crowded situations, if possible. Use simple words, short sentences, and a calm voice. Only give 1 direction at a time. Buy clothes and shoes that are easy to put on and take off. Let people help if they offer. HOME SAFETY Keeping the home safe is very important to reduce the risk of falls and injuries. Keep floors clear of clutter. Remove rugs, magazine racks, and floor lamps. Keep hallways well lit. Put a handrail and nonslip mat in the bathtub or shower. Put childproof locks on cabinets with dangerous items, such as medicine, alcohol, guns, toxic cleaning items, sharp tools or utensils, matches, or lighters. Place locks on doors where the person cannot easily see or reach them. This helps ensure that the person cannot wander out of the house and get lost. Be prepared for emergencies. Keep a list of emergency phone numbers and addresses in a convenient area. PLANS FOR THE FUTURE Do not put off talking about finances. Talk about money management. People with Alzheimer's disease have trouble managing their money as the disease gets worse. Get help from professional advisors regarding financial and legal matters. Do not put off talking about future care. Choose a power of employment law attorney. This is someone who can make decisions for the person with Alzheimer's disease when he or she is no longer able to do so. Talk about driving and when it is the right time to stop. The person's doctor can help give advice on this matter. Talk about the person's living situation. If he or she lives alone, you need to make sure he or she is safe. Some people need extra help at home, and others need more care at a shelter or care center. SUPPORT GROUPS Joining a support group can be very helpful for caregivers of people with Alzheimer's disease. Some advantages to being part of a support group include: Getting strategies to manage stress. Sharing experiences with others. Receiving emotional comfort and support. Learning new caregiving skills as the disease progresses. Knowing what community resources are available and taking advantage of them. SEEK MEDICAL CARE IF: The person has a fever. The person has a sudden change in behavior that does not improve with calming strategies. The person is unable to manage in his or her current living situation. The person threatens you or anyone else, including himself or herself. You are no longer able to care for the person. Document Released: 07/22/2005 Document Revised: 05/11/2013 Document Reviewed: [employer] Patient Information 2014 [email or web address]. No follow up information was provided. Extracted from: Title: DM, HTN Author: Josias Pat MD Date: 05/22/15 Impression and Plan Diagnosis Alzheimer disease (ICD9 331.0, Working, Medical). Benign essential hypertension (ICD9 401.1, Working, Medical). CAD (coronary artery disease) (ICD9 414.9, Working, Medical). CKD (chronic kidney disease) stage 3, GFR 30-59 ml/min (ICD9 585.3, Working, Medical). Diabetes mellitus type 2, uncontrolled (ICD9 250.02, Working, Medical). Diabetic nephropathy (ICD9 250.40, Working, Medical). Hypercholesterolemia (ICD9 272.0, Working, Medical). LAURA on CPAP (ICD9 327.23, Working, Medical). Plan: Continue your current meds. Get lab today. See me in 3 months and as needed. . Orders Orders (Selected) Outpatient Orders Ordered Office Visit Level 4 Est 23360: Future (On Hold) BMP: Prescriptions Prescribed memantine 10 mg oral tablet: 5 mg=0.5 tabs, Oral, BID, for 90 days, 90 tabs, 3 Refill(s). Dx/Order Association Plan: Diagnosis: Alzheimer disease Comment: Diagnosis: Benign essential hypertension Comment: Ordered: Office Visit Level 4 Est [id number]; 05/22/15 10:42:00 CDT, Benign essential hypertension | Diabetes mellitus type 2, uncontrolled | CAD ( coronary artery disease) | CKD (chronic kidney disease) stage 3, GFR 30-59 ml/ min | Diabetic nephropathy Diagnosis: CAD (coronary artery disease) Comment: Ordered: Office Visit Level 4 Est 20207; 05/22/15 10:42:00 CDT, Benign essential hypertension | Diabetes mellitus type 2, uncontrolled | CAD ( coronary artery disease) | CKD (chronic kidney disease) stage 3, GFR 30-59 ml/ min | Diabetic nephropathy Diagnosis: CKD (chronic kidney disease) stage 3, GFR 30-59 ml/min Comment: Ordered: Office Visit Level 4 Est [id number]; 05/22/15 10:42:00 CDT, Benign essential hypertension | Diabetes mellitus type 2, uncontrolled | CAD ( coronary artery disease) | CKD (chronic kidney disease) stage 3, GFR 30-59 ml/ min | Diabetic nephropathy Diagnosis: Diabetes mellitus type 2, uncontrolled Comment: Ordered: Office Visit Level 4 Est [id number]; 05/22/15 10:42:00 CDT, Benign essential hypertension | Diabetes mellitus type 2, uncontrolled | CAD ( coronary artery disease) | CKD (chronic kidney disease) stage 3, GFR 30-59 ml/ min | Diabetic nephropathy Diagnosis: Diabetic nephropathy Comment: Ordered: Office Visit Level 4 Est [id number]; 05/22/15 10:42:00 CDT, Benign essential hypertension | Diabetes mellitus type 2, uncontrolled | CAD ( coronary artery disease) | CKD (chronic kidney disease) stage 3, GFR 30-59 ml/ min | Diabetic nephropathy Diagnosis: Hypercholesterolemia Comment: Ordered: Office Visit Level 4 Est [id number]; 05/22/15 10:42:00 CDT, Benign essential hypertension | Diabetes mellitus type 2, uncontrolled | CAD ( coronary artery disease) | CKD (chronic kidney disease) stage 3, GFR 30-59 ml/ min | Diabetic nephropathy Diagnosis: LAURA on CPAP Comment: Ordered: Office Visit Level 4 Est [id number]; 05/22/15 10:42:00 CDT, Benign essential hypertension | Diabetes mellitus type 2, uncontrolled | CAD ( coronary artery disease) | CKD (chronic kidney disease) stage 3, GFR 30-59 ml/ min | Diabetic nephropathy Additional Orders: Comment: Future Orders: BMP,Blood, Routine Collect, 05/22/15, Once, Lab Collect, CKD (chronic kidney disease) stage 3, GFR 30-59 ml/min, Order for future visit Ordered: memantine 10 mg oral tablet,5 mg 0.5 tabs, Oral, BID, # 90 tabs, 3 Refill(s), [facility], 0.5 tabs Oral BID,x90 days End of Orders ."
--- OUTSIDE RECORDS SUMMARY | 2017-03-15 12:58 | XMS REPORT | Referral Summary ---
Author Author [facility], [facility] Organization [facility] Address Unknown Phone Unavailable Care Team Providers Care Policy Change Clerk Name Role Phone Mac Pat Primary Care Physician [phone] Encounter [facility] [id number] Date(s): 08/26/16 - 08/26/16 [facility] [address] [place] [id number] Discharge Diagnosis: Need for influenza vaccination Discharge Diagnosis: Actinic keratosis Discharge Diagnosis: Acute low back pain Discharge Diagnosis: Hypertension, benign Discharge Diagnosis: CAD (coronary artery disease) Discharge Diagnosis: Alzheimer disease Discharge Diagnosis: Anterior Epistaxis Discharge Diagnosis: LAURA on CPAP Discharge Diagnosis: CKD (chronic kidney disease) stage 3, GFR 30-59 ml/min Discharge Diagnosis: Visit for suture removal Discharge Diagnosis: Diabetes mellitus type 2, uncontrolled Discharge Disposition: 01-Home or Self Care Attending Physician: Josias Pat MD Admitting Physician: Josias Pat MD Vital Signs Most recent to 1 oldest [Reference Range]: Temperature Tympanic 36.0 degC [36.6-38.1 degC] *LOW* (08/26/16 8:04 AM) Peripheral Pulse 68 bpm Rate [60-100 bpm] (08/26/16 8:04 AM) Respiratory Rate 14 br/min [14-20 br/min] (08/26/16 8:04 AM) Blood Pressure 130/54 mmHg [90-140/60-90 mmHg] (08/26/16 8:04 AM) Problem List Condition Effective Dates Status [...] type 2, uncontrolled(Confirm ed) Need for Active oixbdqqpkt-gehrfok-v ertussis (Tdap) vaccine(Confirmed) Allergies, Adverse Reactions, Alerts Substance Reaction Severity Status aspirin epistaxis Active glimepiride SWELLING Active pioglitazone1 Active 1swelling Medications atorvastatin 40 mg oral tablet See Instructions, TAKE 1 TABLET ONE TIME DAILY AT BEDTIME, # 90 tabs, eRx: [facility], TAKE 1 TABLET ONE TIME DAILY AT BEDTIME Start Date: 08/05/16 Status: Ordered BD Ultra- Fine Sil[place] BD Ultra- Fine Sil[place], See Instructions, dispense 3 mo supply-dx: 250.00, # 3 boxes, 3 Refill(s), [facility], dispense 3 mo supply- dx: 250.00 [...] dose, # 180 tabs, 3 Refill(s), Pharmacy: [facility], 1 tabs Oral BID,x90 days,Instr:cancel the 2.5 mg dose Start Date: 05/23/16 Stop Date: 05/18/17 Status: Ordered Flomax 0.4 mg oral capsule See Instructions, TAKE 1 CAPSULE EVERY DAY (PLEASE SCHEDULE A COMPLETE PHYSICAL WITH DR PAT), # 90 caps, 2 Refill(s), eRx: [facility], TAKE 1 CAPSULE EVERY [...] J43.9, # 360 mL, 0 Refill(s), Pharmacy: [id number] Start Date: 08/05/16 Status: Ordered isosorbide mononitrate 20 mg oral tablet See Instructions, TAKE 1 TABLET TWICE DAILY, # 180 tabs, eRx: [facility], TAKE 1 TABLET TWICE DAILY Start Date: 08/15/16 Status: Ordered Januvia 50 mg oral tablet See Instructions, TAKE 1 TABLET EVERY DAY, # 90 tabs, eRx: [facility], TAKE 1 TABLET EVERY DAY Start Date: 07/23/16 Status: Ordered Klor-Con 10 10 mEq, Oral, Daily, Dr. Colmenares, 0 Refill(s) Start Date: 03/17/15 Status: Ordered Levemir FlexTouch 100 units/mL subcutaneous solution See Instructions, INJECT 37 UNITS SUBCUTANEOUSLY ONE TIME A DAY AT BEDTIME, # 45 mL, eRx: [facility], INJECT 37 UNITS SUBCUTANEOUSLY ONE TIME A DAY AT BEDTIME Start Date: 08/15/16 Status: Ordered levothyroxine 50 mcg (0.05 mg) oral tablet See Instructions, TAKE 1 TABLET EVERY DAY, # 90 tabs, eRx: [facility], TAKE 1 TABLET EVERY [...] # 100 tabs, 3 Refill(s), [facility], 1 tabs SubLingual q5min,PRN:as needed for [...] wheezing, # 3 Each, 3 Refill(s), [facility]acy: [facility], Discontinue Xopenex, 1 puffs Inhalation QID,PRN:as needed for wheezing Start Date: 05/17/15 Status: Ordered Vitamin B12 2,500 mcg, Oral, Daily, 0 Refill(s) Start Date: 05/10/14 Status: Ordered Results No data available for this section Immunizations Vaccine Date Refusal Reason tetanus/diphth/pertuss (Tdap) adult/adol 08/21/15 influenza virus vaccine, inactivated 08/26/16 influenza virus vaccine, inactivated 08/23/15 influenza virus [...] See scanned document 2Result Comment: [08/23/2015] Zostavax 09251 unit Procedures Procedure Date Related Diagnosis Body Site Destruction (eg, laser surgery, 08/26/16 electrosurgery, cryosurgery, chemosurgery, surgical curettement), premalignant lesions (eg, actinic keratoses); first lesion Colonoscopy 2008 Colonoscopy 2005 for small LA 1999 catherization x2 anteriograms 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 This means it could develop into skin cancer if it is not treated. About 1% of actinic keratoses turn into skin cancer within a year. It is important to have all such growths removed to prevent them from developing into skin cancer. CAUSES Actinic keratosis is caused by getting too much ultraviolet (UV) radiation from the sun or other UV light sources. RISK FACTORS Factors that increase your chances of getting actinic keratosis include: Having light-colored skin and blue eyes. Having blonde or red hair. Spending a lot of time in the sun. Age. The risk of actinic keratosis increases with age. SYMPTOMS Actinic keratosis growths look like scaly, rough spots of skin. They can be as small as a pinhead or as big as a quarter. They may itch, hurt, or feel sensitive. Sometimes there is a little tag of pink or herman skin growing off them. In some cases, actinic keratoses are easier felt than seen. They do not go away with the use of moisturizing lotions or creams. Actinic keratoses appear most often on areas of skin that get a lot of sun exposure. These areas include the: Scalp. Face. Ears. Lips. Upper back. Backs of the hands. Forearms. DIAGNOSIS Your health care provider can usually tell what is wrong by performing a physical exam. A tissue sample (biopsy) may also be taken and examined under a microscope. TREATMENT Actinic keratosis can be treated several ways. Most treatments can be done in your health care provider's office. Treatment options may include: Curettage. A tool is used to gently scrape off the growth. Cryosurgery. Liquid nitrogen is applied to the growth to freeze it. The growth eventually falls off the skin. Medicated creams, such as 5-fluorouracil or imiquimod. The medicine destroys the cells in the growth. Chemical peels. Chemicals are applied to the growth and the outer layers of skin are peeled off. Photodynamic therapy. A drug that makes your skin more sensitive to light is applied to the skin. A strong, blue light is aimed at the skin and destroys the growth. PREVENTION To prevent future sun damage: Try to avoid the sun between 10:00 a.m. and 4:00 p.m. when it is the strongest. Use a sunscreen or sunblock with SPF 30 or greater. Apply sunscreen at least 30 minutes before exposure to the sun. Always wear protective hats, clothing, and sunglasses with UV protection. Avoid medicines, herbs, and foods that increase your sensitivity to sunlight. Avoid tanning beds. HOME CARE INSTRUCTIONS If your skin was covered with a bandage, change and remove the bandage as directed by your health care provider. Keep the treated area dry as directed by your health care provider. Apply any creams as prescribed by your health care provider. Follow the directions carefully. Check your skin regularly for any changes. Visit a skin doctor (gripper machine operator) every year for a skin exam. SEEK MEDICAL CARE IF: Your skin does not heal and becomes irritated, red, or bleeds. You notice any changes or new growths on your skin. This information is not intended to replace advice given to you by your health care provider. Make sure you discuss any questions you have with your health care provider. Document Released: 02/06/2010 Document Revised: 12/01/2015 Document Reviewed: ExitCare Patient Information 2016 [facility]. No follow up information was provided. Extracted from: Title: several medical problems Author: Josias Pat MD Date: 08/26/16 Impression and Plan Diagnosis Need for influenza vaccination ([id number] Z23, Discharge, Medical). Visit for suture removal (PHF90-LS Z48.02, Discharge, Medical). Actinic keratosis (ASC19-IY L57.0, Discharge, Medical). CKD (chronic kidney disease) stage 3, GFR 30-59 ml/min (YTR35-PC N18.3, Discharge, Medical). Hypertension, benign (BWI43-FZ I10, Discharge, Medical). Alzheimer disease (FOO07-FC G30.9, Discharge, Medical). Diabetes mellitus type 2, uncontrolled (QHG93-CO E11.65, Discharge, Medical). CAD (coronary artery disease) (MAZ07-WL I25.10, Discharge, Medical). Acute low back pain (QRQ23-OH M54.5, Discharge, Medical). Anterior Epistaxis (JND67-LM R04.0, Discharge, Medical). LAURA on CPAP (BLU12-XS G47.33, Discharge, Medical). Plan: 1) One actinic keratosis in the left preauricular area was treated with liquid nitrogen, using a freeze, thaw, refreeze technique, which was well tolerated. 2) Continue your present meds. 3) See me in 3 months and as needed. 4) Remaining sutures were removed from the left face--appears to be well healed. 5) Use Saline nasal gel in the nostrils to help prevent nosebleeds.. Orders Orders (Selected) Outpatient Orders Ordered Destruction premalignant lesion : Completed influenza virus vaccine, inactivated: 0.5 mL, IntraMuscular, Once Modify Office Visit Level 3 Est 17790: . Dx/Order Association Plan: Diagnosis: Actinic keratosis Comment: Ordered: Destruction premalignant lesion ; 08/26/16 7:49: 00 CDT, 1, Actinic keratosis Diagnosis: Acute low back pain Comment: Modified: Office Visit Level 3 Est 44948; 08/26/16 7:49:00 CDT, 25 , Diabetes mellitus type 2, uncontrolled | Acute low back pain | CAD (coronary artery disease) | Anterior Epistaxis | Hypertension, benign | LAURA on CPAP | Visit for suture removal | CKD (chronic kidney disease) stage 3, GFR 30-... Diagnosis: Alzheimer disease Comment: Modified: Office Visit Level 3 Est 66313; 08/26/16 7:49:00 CDT, 25 , Diabetes mellitus type 2, uncontrolled | Acute low back pain | CAD (coronary artery disease) | Anterior Epistaxis | Hypertension, benign | LAURA on CPAP | Visit for suture removal | CKD (chronic kidney disease) stage 3, GFR 30-... Diagnosis: Anterior Epistaxis Comment: Modified: Office Visit Level 3 Est [id number]; 08/26/16 7:49:00 CDT, 25 , Diabetes mellitus type 2, uncontrolled | Acute low back pain | CAD (coronary artery disease) | Anterior Epistaxis | Hypertension, benign | LAURA on CPAP | Visit for suture removal | CKD (chronic kidney disease) stage 3, GFR 30-... Diagnosis: CAD (coronary artery disease) Comment: Modified: Office Visit Level 3 Est [id number]; 08/26/16 7:49:00 CDT, 25 , Diabetes mellitus type 2, uncontrolled | Acute low back pain | CAD (coronary artery disease) | Anterior Epistaxis | Hypertension, benign | LAURA on CPAP | Visit for suture removal | CKD (chronic kidney disease) stage 3, GFR 30-... Diagnosis: CKD (chronic kidney disease) stage 3, GFR 30-59 ml/min Comment: Modified: Office Visit Level 3 Est [id number]; 08/26/16 7:49:00 CDT, 25 , Diabetes mellitus type 2, uncontrolled | Acute low back pain | CAD (coronary artery disease) | Anterior Epistaxis | Hypertension, benign | LAURA on CPAP | Visit for suture removal | CKD (chronic kidney disease) stage 3, GFR 30-... Diagnosis: Diabetes mellitus type 2, uncontrolled Comment: Modified: Office Visit Level 3 Est [id number]; 08/26/16 7:49:00 CDT, 25 , Diabetes mellitus type 2, uncontrolled | Acute low back pain | CAD (coronary artery disease) | Anterior Epistaxis | Hypertension, benign | LAURA on CPAP | Visit for suture removal | CKD (chronic kidney disease) stage 3, GFR 30-... Diagnosis: Hypertension, benign Comment: Modified: Office Visit Level 3 Est [id number]; 08/26/16 7:49:00 CDT, 25 , Diabetes mellitus type 2, uncontrolled | Acute low back pain | CAD (coronary artery disease) | Anterior Epistaxis | Hypertension, benign | LAURA on CPAP | Visit for suture removal | CKD (chronic kidney disease) stage 3, GFR 30-... Diagnosis: Need for influenza vaccination Comment: Modified: Office Visit Level 3 Est [id number]; 08/26/16 7:49:00 CDT, 25 , Diabetes mellitus type 2, uncontrolled | Acute low back pain | CAD (coronary artery disease) | Anterior Epistaxis | Hypertension, benign | LAURA on CPAP | Visit for suture removal | CKD (chronic kidney disease) stage 3, GFR 30-... Other status: influenza virus vaccine, inactivated; 0.5 mL, IntraMuscular, Once, First Dose: 08/26/16 7:50:00 CDT, Stop Date: 08/26/16 7:50: 00 CDT (Completed) Diagnosis: LAURA on CPAP Comment: Modified: Office Visit Level 3 Est [id number]; 08/26/16 7:49:00 CDT, 25 , Diabetes mellitus type 2, uncontrolled | Acute low back pain | CAD (coronary artery disease) | Anterior Epistaxis | Hypertension, benign | LAURA on CPAP | Visit for suture removal | CKD (chronic kidney disease) stage 3, GFR 30-... Diagnosis: Visit for suture removal Comment: Modified: Office Visit Level 3 Est [id number]; 08/26/16 7:49:00 CDT, 25 , Diabetes mellitus type 2, uncontrolled | Acute low back pain | CAD (coronary artery disease) | Anterior Epistaxis | Hypertension, benign | LAURA on CPAP | Visit for suture removal | CKD (chronic kidney disease) stage 3, GFR 30-... End of Orders ."
--- OUTSIDE RECORDS SUMMARY | 2017-03-15 12:58 | XMS REPORT | Referral Summary ---
Author Author [facility] Address Unknown Phone Unavailable Care Team Providers Care Home Security Alarm Installer Name Role Phone Mac Reveles Primary Care Physician [phone] Encounter Date(s): 04/20/15 - 04/20/15 [facility] [address], [facility] [address] [place], [place] [address] Discharge Diagnosis: LAURA on CPAP Discharge Disposition: [...] type 2, uncontrolled(Confirm ed) Need for Active fqsxoxxpzu-mubzlpi-o ertussis (Tdap) vaccine(Confirmed) Allergies, Adverse Reactions, Alerts Substance Reaction Severity Status aspirin epistaxis Active glimepiride SWELLING Active pioglitazone1 Active 1swelling Medications atorvastatin 40 mg oral tablet 40 mg 1 tabs, Oral, Bedtime (once a day), # 90 tabs, 0 Refill(s), Pharmacy: [facility], Instruct patient to schedule a complete physical with Dr. reveles, 1 tabs Oral Bedtime (once a day) Start Date: 04/24/15 Status: Ordered BD Ultra- Fine Silke [place] BD Ultra- Fine [place], See Instructions, dispense 3 mo supply-dx: 250.00, # 3 boxes, 3 Refill(s), Pharmacy: [facility], dispense 3 mo supply- dx: 250.00 Start Date: 07/06/14 Status: Ordered carvedilol 25 mg oral tablet See Instructions, TAKE 1/2 TABLET TWICE DAILY, # 90 tabs, 2 Refill(s), eRx: [facility], TAKE 1/2 TABLET TWICE DAILY Start Date: 10/06/15 Status: Ordered donepezil 10 mg oral tablet See Instructions, TAKE 1 TABLET ONE TIME DAILY AT BEDTIME, # 90 tabs, 3 Refill(s ), eRx: [facility], TAKE 1 TABLET ONE TIME DAILY AT BEDTIME Start Date: 07/25/15 Status: Ordered Flomax 0.4 mg oral capsule See Instructions, TAKE 1 CAPSULE EVERY DAY. PLEASE SCHEDULE A COMPLETE PHYSICAL WITH DR REVELES, # 90 caps, eRx: [facility], TAKE 1 CAPSULE EVERY DAY. PLEASE SCHEDULE A COMPLETE PHYSICAL WITH DR REVELES Start Date: 10/16/15 Status: Ordered furosemide 20 mg oral tablet 1 tabs, Oral, Daily, Dr. Colmenares, 0 Refill(s) Start Date: 03/17/15 Status: Ordered ipratropium-albuterol 0.5 mg-2.5 mg/3 mLinhalation solution 3 mL, Inhalation, QID, DX: COPD-496., # 120 vials, 11 Refill(s), Pharmacy: [id number] Start Date: 07/18/15 Status: Ordered isosorbide mononitrate 20 mg oral tablet See Instructions, TAKE 1 TABLET TWICE DAILY, # 180 tabs, 1 Refill(s), eRx: [facility], TAKE 1 TABLET TWICE DAILY Start Date: 07/03/15 Status: Ordered Januvia 50 mg oral tablet See Instructions, TAKE 1 TABLET EVERY DAY, # 90 tabs, 3 Refill(s), eRx: [facility], TAKE 1 TABLET EVERY DAY Start Date: 07/17/15 Status: Ordered Klor-Con 10 10 mEq, Oral, Daily, Dr. Colmenares, 0 Refill(s) Start Date: 03/17/15 Status: Ordered Levemir FlexTouch 100 units/mL subcutaneous solution See Instructions, INJECT 37 UNITS SUBCUTANEOUSLY ONE TIME A DAY AT BEDTIME, # 30 mL, 1 Refill(s), eRx: [facility], INJECT 37 UNITS [...] Daily, # 90 tabs, 3 Refill(s), Pharmacy: [facility] Start Date: 08/21/15 Status: Ordered lutein 20 mg oral tablet 1 tabs, Oral, Daily, # 30 tabs, 0 Refill(s) Start Date: 05/10/14 Status: Ordered memantine 10 mg oral tablet 5 mg 0.5 tabs, Oral, BID, # 90 tabs, 3 Refill(s), Pharmacy: [facility], 0.5 tabs Oral BID,x90 days Start Date: 05/24/15 Stop Date: 05/18/16 Status: Ordered nitroglycerin 0.4 mg sublingual tablet 1 tabs, SubLingual, q5min, as needed for chest pain, not to exceed 3 doses/15 min--if pain persists, seek medical attention, # 100 tabs, 3 Refill(s), Pharmacy : [facility], 1 tabs SubLingual q5min,PRN:as needed for chest pain,Instr: not to exceed 3... Start Date: 10/24/14 Status: Ordered pantoprazole 40 mg oral delayed release tablet See Instructions, TAKE 1 TABLET EVERY DAY, # 90 tabs, 3 Refill(s), eRx: [facility], TAKE 1 TABLET EVERY DAY Start Date: 07/17/15 Status: Ordered Plavix 75 mg oral tablet See Instructions, TAKE 1 TABLET EVERY DAY, # 90 tabs, 3 Refill(s), eRx: [facility], TAKE 1 TABLET EVERY DAY Start Date: 07/17/15 Status: Ordered Spiriva 18 mcg inhalation capsule See Instructions, INHALE THE CONTENTS OF ONE CAPSULE IN 2 INHALATIONS DAILY NEEDED FOR DIFFICULTY IN BREATHING, # 90 caps, 1 Refill(s), eRx: [facility], INHALE THE CONTENTS OF ONE CAPSULE IN 2 INHALATIONS DAILY NEEDED FOR... Start Date: 07/17/15 Status: Ordered Ventolin HFA 90 mcg/inh inhalation aerosol 1 puffs, Inhalation, QID, as needed for wheezing, # 3 Each, 3 Refill(s), Pharmacy: [facility], Discontinue Xopenex, 1 puffs Inhalation [...] See scanned document 2Result Comment: [08/23/2015] Zostavax 36202 unit Procedures Procedure Date Related Diagnosis Body Site Colonoscopy 2008 Colonoscopy 2005 for small SC 1999 catherization x2 anteriograms bone marrow CABG [...] CPAP with all sleep at 12cm. Call [facility] for a new hose. F/u in 1 [...]
--- OUTSIDE RECORDS SUMMARY | 2017-03-15 12:58 | XMS REPORT | Referral Summary ---
Author Author [facility] Organization [facility] Address Unknown Phone Unavailable Care Team Providers Care Wheat Shipper Name Role Phone Mac Pat Primary Care Physician [phone] Encounter Date(s): 05/18/15 - 05/18/15 [facility] [address], [facility] [address] [place], [place] [address] Discharge Disposition: 01-Home or Self Care Attending Physician: Ludy Escalera Admitting Physician: Ludy Escalera Referring Physician: Josias Pat MD Vital Signs No data available for this section Problem List Condition Effective Dates Status Health [...] type 2, uncontrolled(Confirm ed) Need for Active lfhckcuzwl-qdpwktj-p ertussis (Tdap) vaccine(Confirmed) Allergies, Adverse Reactions, Alerts Substance Reaction Severity Status aspirin epistaxis Active glimepiride SWELLING Active pioglitazone1 Active 1swelling Medications atorvastatin 40 mg oral tablet See Instructions, TAKE 1 TABLET ONE TIME DAILY AT BEDTIME, # 90 tabs, 2 Refill(s ), eRx: [facility], TAKE 1 TABLET ONE TIME DAILY AT BEDTIME Start Date: 11/07/15 Status: Ordered BD Ultra- Fine Silke Pen [place] BD Ultra- Fine Silke Pen [place], See Instructions, dispense 3 mo supply-dx: 250.00, # 3 boxes, 3 Refill(s), Pharmacy: [facility], dispense 3 mo supply- dx: 250.00 Start Date: 07/06/14 Status: Ordered carvedilol 25 mg oral tablet See Instructions, TAKE 1/2 TABLET TWICE DAILY, # 90 tabs, 2 Refill(s), eRx: [facility], TAKE 1/2 TABLET TWICE [...] PAT), # 90 caps, 2 Refill(s), eRx: [facility], TAKE 1 CAPSULE EVERY DAY (PLEASE SCHEDULE A COMPLETE PHYSICAL WITH DR PAT) Start Date: 11/07/15 Status: Ordered furosemide 20 mg oral tablet 1 tabs, Oral, Daily, Dr. Colmenares, 0 Refill(s) Start Date: 03/17/15 Status: Ordered ipratropium-albuterol 0.5 mg-2.5 mg/3 mLinhalation solution 3 mL, Inhalation, QID, DX: [id number]., # 120 vials, 11 Refill(s), Pharmacy: [id number] Start Date: 07/18/15 Status: Ordered isosorbide mononitrate 20 mg oral tablet See Instructions, TAKE 1 TABLET TWICE DAILY, # 180 tabs, 2 Refill(s), eRx: [facility], TAKE 1 TABLET TWICE DAILY Start Date: 11/07/15 Status: Ordered Januvia 50 mg oral tablet See Instructions, TAKE 1 TABLET EVERY DAY, # 90 tabs, 3 Refill(s), eRx: [facility], TAKE 1 TABLET EVERY DAY Start Date: 07/17/15 Status: Ordered Klor-Con 10 10 mEq, Oral, Daily, Dr. Colmenares, 0 Refill(s) Start Date: 03/17/15 Status: Ordered Levemir FlexTouch 100 units/mL subcutaneous solution See Instructions, INJECT 37 UNITS SUBCUTANEOUSLY ONE TIME A DAY AT BEDTIME, # 30 mL, 1 Refill(s), Pharmacy: [facility], INJECT 37 UNITS SUBCUTANEOUSLY ONE TIME A DAY AT BEDTIME Start Date: 11/08/15 Status: Ordered levothyroxine 50 mcg (0.05 mg) oral tablet See Instructions, TAKE 1 TABLET EVERY DAY, # 90 tabs, 2 Refill(s), eRx: [facility], TAKE 1 TABLET EVERY DAY Start Date: 11/07/15 Status: Ordered lisinopril 2.5 mg oral tablet 2.5 mg 1 tabs, Oral, Daily, # 90 tabs, 3 Refill(s), Pharmacy: [facility] Start Date: 08/21/15 Status: Ordered lutein 20 mg oral tablet 1 tabs, Oral, Daily, # 30 tabs, 0 Refill(s) Start Date: 05/10/14 Status: Ordered memantine 10 mg oral tablet 5 mg 0.5 tabs, Oral, BID, # 90 tabs, 3 Refill(s), Pharmacy: [facility], 0.5 tabs Oral BID,x90 days Start Date: 05/24/15 Stop Date: 05/18/16 Status: Ordered nitroglycerin 0.4 mg sublingual tablet 1 tabs, SubLingual, q5min, as needed for chest pain, not to exceed 3 doses/15 min--if pain persists, seek medical attention, # 100 tabs, 3 Refill(s), Pharmacy : [facility], 1 tabs SubLingual q5min,PRN:as needed for chest pain,Instr: not to exceed 3... Start Date: 10/24/14 Status: Ordered pantoprazole 40 mg oral delayed release tablet See Instructions, TAKE 1 TABLET EVERY DAY, # 90 tabs, 3 Refill(s), eRx: [facility], TAKE 1 TABLET EVERY DAY Start Date: 07/17/15 Status: Ordered Plavix 75 mg oral tablet See Instructions, TAKE 1 TABLET EVERY DAY, # 90 tabs, 3 Refill(s), eRx: [facility], TAKE 1 TABLET EVERY DAY Start Date: 07/17/15 Status: Ordered Spiriva 18 mcg inhalation capsule See Instructions, INHALE THE CONTENTS OF ONE CAPSULE IN 2 INHALATIONS DAILY NEEDED FOR DIFFICULTY IN BREATHING, # 90 caps, 1 Refill(s), eRx: [facility], INHALE THE CONTENTS OF ONE CAPSULE IN 2 INHALATIONS DAILY NEEDED FOR... 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
--- OUTSIDE RECORDS SUMMARY | 2017-03-15 12:58 | XMS REPORT | Referral Summary ---
Author Author [facility] Organization [facility] Address Unknown Phone Unavailable Care Team Providers Care Movers Name Role Phone Mac Reveles Primary Care Physician [phone] Encounter Date(s): 04/20/15 - 04/20/15 [facility] [address], [facility] [address] [place], [place] [address] Discharge Diagnosis: LAURA on CPAP Discharge [...] type 2, uncontrolled(Confirm ed) Need for Active ihcdxqvuqj-kwgwqaz-k ertussis (Tdap) vaccine(Confirmed) Allergies, Adverse Reactions, Alerts Substance Reaction Severity Status aspirin epistaxis Active glimepiride SWELLING Active pioglitazone1 Active 1swelling Medications atorvastatin 40 mg oral tablet 40 mg 1 tabs, Oral, Bedtime (once a day), # 90 tabs, 0 Refill(s), Pharmacy: [facility], Instruct patient to schedule a complete physical with Dr. reveles, 1 tabs Oral Bedtime (once a day) Start Date: 04/24/15 Status: Ordered BD Ultra- Fine Silke Pen [place] BD Ultra- Fine Silke Pen [place], See Instructions, dispense 3 mo supply-dx: 250.00, # 3 boxes, 3 Refill(s), Pharmacy: [facility], dispense 3 mo supply- dx: 250.00 Start Date: 07/06/14 Status: Ordered carvedilol 25 mg oral tablet 0.5 tabs, Oral, BID, # 90 tabs, 3 Refill(s), Pharmacy: [facility], 0.5 tabs Oral BID Start Date: 07/06/14 Status: Ordered donepezil 10 mg oral tablet See Instructions, TAKE 1 TABLET ONE TIME DAILY AT BEDTIME, # 90 tabs, 3 Refill(s ), eRx: [facility], TAKE 1 TABLET ONE TIME DAILY AT BEDTIME Start Date: 07/25/15 Status: Ordered Flomax 0.4 mg oral capsule See Instructions, TAKE 1 CAPSULE EVERY DAY. PLEASE SCHEDULE A COMPLETE PHYSICAL WITH DR REVELES, # 90 caps, eRx: [facility], TAKE 1 CAPSULE EVERY DAY. PLEASE SCHEDULE A COMPLETE PHYSICAL WITH DR REVELES Start Date: 07/17/15 Status: Ordered furosemide 20 mg oral tablet 1 tabs, Oral, Daily, Dr. Colmenares, 0 Refill(s) Start Date: 03/17/15 Status: Ordered ipratropium-albuterol 0.5 mg-2.5 mg/3 mLinhalation solution 3 mL, Inhalation, QID, DX: [id number]., # 120 vials, 11 Refill(s), Pharmacy: [facility] [id number] Start Date: 07/18/15 Status: Ordered isosorbide mononitrate 20 mg oral tablet See Instructions, TAKE 1 TABLET TWICE DAILY, # 180 tabs, 1 Refill(s), eRx: [facility], TAKE 1 TABLET TWICE DAILY Start Date: 07/03/15 Status: Ordered Januvia 50 mg oral tablet See Instructions, TAKE 1 TABLET EVERY DAY, # 90 tabs, 3 Refill(s), eRx: [facility], TAKE 1 TABLET EVERY DAY Start Date: 07/17/15 Status: Ordered Klor-Con 10 10 mEq, Oral, Daily, Dr. Colmenares, 0 Refill(s) Start Date: 03/17/15 Status: Ordered Levemir FlexTouch 100 units/mL subcutaneous solution See Instructions, INJECT 37 UNITS SUBCUTANEOUSLY ONE TIME A DAY AT BEDTIME, # 30 mL, 1 Refill(s), eRx: [facility], INJECT 37 UNITS SUBCUTANEOUSLY [...] Daily, # 90 tabs, 3 Refill(s), Pharmacy: [facility] Start Date: 08/21/15 Status: Ordered lutein 20 mg oral tablet 1 tabs, Oral, Daily, # 30 tabs, 0 Refill(s) Start Date: 05/10/14 Status: Ordered memantine 10 mg oral tablet 5 mg 0.5 tabs, Oral, BID, # 90 tabs, 3 Refill(s), Pharmacy: [facility], 0.5 tabs Oral BID,x90 [...] DAY, # 90 tabs, 3 Refill(s), eRx: [facility], TAKE 1 TABLET EVERY DAY Start Date: 07/17/15 Status: Ordered Plavix 75 mg oral tablet See Instructions, TAKE 1 TABLET EVERY DAY, # 90 tabs, 3 Refill(s), eRx: [facility], TAKE 1 TABLET EVERY DAY Start Date: 07/17/15 Status: Ordered Spiriva 18 mcg inhalation capsule See Instructions, INHALE THE CONTENTS OF ONE CAPSULE IN 2 INHALATIONS DAILY NEEDED FOR DIFFICULTY IN BREATHING, # 90 caps, 1 Refill(s), eRx: [facility], INHALE THE CONTENTS OF ONE CAPSULE IN 2 INHALATIONS DAILY NEEDED FOR... Start Date: 07/17/15 Status: Ordered Ventolin HFA 90 mcg/inh inhalation aerosol 1 puffs, Inhalation, QID, as needed for wheezing, # 3 Each, 3 Refill(s), Pharmacy: [facility], Discontinue Xopenex, 1 puffs Inhalation [...] See scanned document 2Result Comment: [08/23/2015] Zostavax 54380 unit Procedures Procedure Date Related Diagnosis Body Site Colonoscopy 2008 Colonoscopy 2005 for small [place] 1999 catherization x2 anteriograms bone marrow CABG [...] CPAP with all sleep at 12cm. Call [facility] for a new hose. F/u in 1 [...]
--- OUTSIDE RECORDS SUMMARY | 2017-03-15 12:58 | XMS REPORT | Referral Summary ---
Author Author [facility] Organization [facility] Address Unknown Phone Unavailable Care Team Providers Care Check Processor Name Role Phone Mac Pat Primary Care Physician [phone] Encounter VC Date(s): 07/24/16 - 07/24/16 [facility] [place], [address] [place] [address] Discharge Disposition: 01-Home or Self Care Attending Physician: Josias Pat MD Admitting Physician: Josias Pat MD Vital Signs Most recent to 1 oldest [Reference Range]: Temperature Tympanic 36.4 degC [36.6-38.1 degC] *LOW* (07/24/16 7:04 AM) Peripheral Pulse 65 bpm Rate [60-100 bpm] (07/24/16 7:04 AM) Blood Pressure 140/70 mmHg [90-140/60-90 mmHg] (07/24/16 7:04 AM) SpO2 96 % (07/24/16 7:04 AM) Problem List Condition Effective Dates Status [...] type 2, uncontrolled(Confirm ed) Need for Active kaevctyorn-kbhkbvb-v ertussis (Tdap) vaccine(Confirmed) Allergies, Adverse Reactions, Alerts [...] Status: Ordered BD Ultra- Fine Silke Pen [place] BD Ultra- Fine Silke Pen [place], See Instructions, dispense 3 mo supply-dx: 250.00, # 3 boxes, 3 Refill(s), Pharmacy: [facility], dispense 3 mo supply- dx: 250.00 Start Date: 07/06/14 Status: Ordered carvedilol 25 mg oral tablet See Instructions, TAKE 1/2 TABLET TWICE DAILY, # 90 tabs, eRx: [facility], TAKE 1/2 TABLET TWICE DAILY Start Date: 06/19/16 Status: Ordered clopidogrel 75 mg oral tablet See Instructions, TAKE 1 TABLET EVERY DAY, # 90 tabs, eRx: [facility], TAKE 1 TABLET EVERY DAY Start Date: 07/01/16 Status: Ordered donepezil 10 mg oral tablet See Instructions, TAKE 1 TABLET ONE TIME DAILY AT BEDTIME, # 90 tabs, [facility]Rx: [facility], TAKE 1 TABLET ONE TIME DAILY AT BEDTIME Start Date: 06/19/16 Status: Ordered Eliquis 5 mg oral tablet 5 mg 1 tabs, Oral, BID, cancel the 2.5 mg dose, # 180 tabs, 3 Refill(s), Pharmacy: [facility], 1 tabs Oral BID,x90 days,Instr:cancel the 2.5 mg dose Start Date: 05/23/16 Stop Date: 05/18/17 Status: Ordered Flomax 0.4 mg oral capsule See Instructions, TAKE 1 CAPSULE EVERY DAY (PLEASE SCHEDULE A COMPLETE PHYSICAL WITH DR PAT), # 90 caps, 2 Refill(s), eRx: [facility], TAKE 1 CAPSULE EVERY [...] evening, # 120 vials, 11 Refill(s), Pharmacy: [id number] Start Date: 07/18/15 Status: Ordered isosorbide mononitrate [...] BEDTIME, # 45 mL, 1 Refill(s), eRx: [facility], INJECT 37 UNITS SUBCUTANEOUSLY ONE TIME A DAY AT BEDTIME Start Date: 03/01/16 Status: Ordered levothyroxine 50 mcg (0.05 mg) oral tablet See Instructions, TAKE 1 TABLET EVERY DAY, # 90 tabs, eRx: [facility], TAKE 1 TABLET EVERY DAY Start Date: 07/23/16 Status: Ordered lisinopril 2.5 mg oral tablet 2.5 mg 1 tabs, Oral, Daily, # 90 tabs, 3 Refill(s), [facility] Start Date: 08/21/15 Status: [...] # 100 tabs, 3 Refill(s), [facility], 1 tabs SubLingual q5min,PRN:as needed for [...] See scanned document 2Result Comment: [08/23/2015] Zostavax 21112 unit Procedures Procedure Date Related Diagnosis Body Site Excision, malignant lesion including margins, 07/24/16 trunk, arms, or legs; excised diameter 1.1 to 2.0 cm Colonoscopy 2008 Colonoscopy 2005 for small [place] 1999 catherization x2 anteriograms 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 Cataract extraction and insertion of intraocular lens1 Cystoscopy Esophagogastroduodenoscopy ORIF -(L) forearm fx Stent placement Tuna 1bilateral Social History Social History Type Response Smoking Status Never smoker; Type: Cigarettes Assessment and Plan Extracted from: Title: Ambulatory Patient Education Author: Josias Pat MD Date: 07/24 Family Medicine Basal Cell Carcinoma Basal cell [...] a procedure done by a skin doctor (product demonstrator or Mohs surgeon) in his or her [...] Released: 05/16/2004 Document Revised: 05/11/2013 Document Reviewed: [facility] Patient Information 2016 [employer]. No follow up information was provided. Extracted from: Title: left forearm excision Author: Josias Pat MD Date: 07/24/16 Impression and Plan Diagnosis Skin nodule ([id number] R22.9, Working, Medical). Left knee pain (VVA82-TD M25.562, Working, Medical). Basal cell carcinoma of left forearm ([id number] C44.619, Working, Medical). Orders (Selected) Outpatient Orders Ordered Exc Mal Les Trunk Arm Leg 1.1-2.0cm 09094: Completed Pathology Surgical Order: Future (On Hold) XR Knee Complete Left: . Counseled: 1) Keep the site clean and dry for 72 hours. 2) FATMATA and pressure dressing applied. Patient advised to use FATMATA daily. 3) Return for some sutures to come out in 8-9 days, and as needed. 4) Patient requested left knee xrays today--ordered..
--- OUTSIDE RECORDS SUMMARY | 2017-03-15 12:58 | XMS REPORT | Referral Summary ---
Author Author [facility] Organization [facility] Address Unknown Phone Unavailable Care Team Providers Care Hydraulic Jack Adjuster Name Role Phone Mac Reveles Primary Care Physician [phone] Encounter Date(s): 04/20/15 - 04/20/15 [facility] [address], [facility] [address] [place], [place] [address] Discharge Disposition: 01-Home or Self Care Attending Physician: Ludy Escalera Admitting Physician: Ludy Escalera Vital Signs No data available for this [...] type 2, uncontrolled(Confirm ed) Need for Active etqfqejwth-qmurrir-u ertussis (Tdap) vaccine(Confirmed) Allergies, Adverse Reactions, Alerts Substance Reaction Severity Status aspirin epistaxis Active glimepiride SWELLING Active pioglitazone1 Active 1swelling Medications atorvastatin 40 mg oral tablet 40 mg 1 tabs, Oral, Bedtime (once a day), # 90 tabs, 0 Refill(s), [facility]: [email or web address], Instruct patient to schedule a complete physical with Dr. reveles, 1 tabs Oral Bedtime (once a day) Start Date: 04/24/15 Status: Ordered BD Ultra- Fine Silke Pen [place] BD Ultra- Fine Silke Pen [place], See Instructions, dispense 3 mo supply-dx: 250.00, # 3 boxes, 3 Refill(s), Pharmacy: [facility], dispense 3 mo supply- dx: 250.00 Start Date: 07/06/14 Status: Ordered carvedilol 25 mg oral tablet See Instructions, TAKE 1/2 TABLET TWICE DAILY, # 90 tabs, 2 Refill(s), eRx: [facility], TAKE 1/2 TABLET TWICE DAILY Start Date: 10/06/15 Status: Ordered donepezil 10 mg oral tablet See Instructions, TAKE 1 TABLET ONE TIME DAILY AT BEDTIME, # 90 tabs, 3 Refill(s ), eRx: [facility], TAKE 1 TABLET ONE TIME DAILY AT BEDTIME Start Date: 07/25/15 Status: Ordered Flomax 0.4 mg oral capsule See Instructions, TAKE 1 CAPSULE EVERY DAY. PLEASE SCHEDULE A COMPLETE PHYSICAL WITH DR REVELES, # 90 caps, eRx: [facility], TAKE 1 CAPSULE EVERY DAY. PLEASE SCHEDULE A COMPLETE PHYSICAL WITH DR REVELES Start Date: 10/16/15 Status: Ordered furosemide 20 mg oral tablet 1 tabs, Oral, Daily, Dr. Colmenares, 0 Refill(s) Start Date: 03/17/15 Status: Ordered ipratropium-albuterol 0.5 mg-2.5 mg/3 mLinhalation solution 3 mL, Inhalation, QID, DX: COPD-496., # 120 vials, 11 Refill(s), Pharmacy: [id number] Start Date: 07/18/15 Status: Ordered isosorbide mononitrate 20 mg oral tablet See Instructions, TAKE 1 TABLET TWICE DAILY, # 180 tabs, 1 Refill(s), eRx: [facility], TAKE 1 TABLET TWICE DAILY Start Date: 07/03/15 Status: Ordered Januvia 50 mg oral tablet See Instructions, TAKE 1 TABLET EVERY DAY, # 90 tabs, 3 Refill(s), eRx: [facility], TAKE 1 TABLET EVERY DAY Start Date: 07/17/15 Status: Ordered Klor-Con 10 10 mEq, Oral, Daily, Dr. Colmenares, 0 Refill(s) Start Date: 03/17/15 Status: Ordered Levemir FlexTouch 100 units/mL subcutaneous solution See Instructions, INJECT 37 UNITS SUBCUTANEOUSLY ONE TIME A DAY AT BEDTIME, # 30 mL, 1 Refill(s), eRx: [facility], INJECT 37 UNITS SUBCUTANEOUSLY [...] Daily, # 90 tabs, 3 Refill(s), Pharmacy: [facility] Start Date: 08/21/15 Status: Ordered lutein 20 mg oral tablet 1 tabs, Oral, Daily, # 30 tabs, 0 Refill(s) Start Date: 05/10/14 Status: Ordered memantine 10 mg oral tablet 5 mg 0.5 tabs, Oral, BID, # 90 tabs, 3 Refill(s), Pharmacy: [facility], 0.5 tabs Oral BID,x90 [...] DAY, # 90 tabs, 3 Refill(s), eRx: [facility], TAKE 1 TABLET EVERY DAY Start Date: 07/17/15 Status: Ordered Plavix 75 mg oral tablet See Instructions, TAKE 1 TABLET EVERY DAY, # 90 tabs, 3 Refill(s), eRx: [facility], TAKE 1 TABLET EVERY DAY Start Date: 07/17/15 Status: Ordered Spiriva 18 mcg inhalation capsule See Instructions, INHALE THE CONTENTS OF ONE CAPSULE IN 2 INHALATIONS DAILY NEEDED FOR DIFFICULTY IN BREATHING, # 90 caps, 1 Refill(s), eRx: [facility], INHALE THE CONTENTS OF ONE CAPSULE IN 2 INHALATIONS DAILY NEEDED FOR... 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
--- OUTSIDE RECORDS SUMMARY | 2017-03-15 12:59 | XMS REPORT | Referral Summary ---
Author Author [facility], Family Medicine Organization [facility] Address Unknown Phone Unavailable Care Team Providers Care Breakdown Person Name Role Phone Mac Pat Primary Care Physician [phone] Encounter VC Date(s): 07/22/16 - 07/22/16 [facility] [address] [place] [id number] Discharge Disposition: 01-Home or Self Care Attending Physician: Josias Pat MD Admitting Physician: Josias Pat MD Vital Signs Most recent to 1 oldest [Reference Range]: Temperature Tympanic 36.3 degC [36.6-38.1 degC] *LOW* (07/22/16 9:25 AM) Peripheral Pulse 72 bpm Rate [60-100 bpm] (07/22/16 9:25 AM) Respiratory Rate 14 br/min [14-20 br/min] (07/22/16 9:25 AM) Blood Pressure 144/62 mmHg [90-140/60-90 mmHg] *HI* (07/22/16 9:25 AM) Problem List Condition Effective Dates Status [...] type 2, uncontrolled(Confirm ed) Need for Active lyemyrznes-njmagon-m ertussis (Tdap) vaccine(Confirmed) Allergies, Adverse Reactions, Alerts Substance Reaction Severity Status aspirin epistaxis Active glimepiride SWELLING Active pioglitazone1 Active 1swelling Medications atorvastatin 40 mg oral tablet See Instructions, TAKE 1 TABLET ONE TIME DAILY AT BEDTIME, # 90 tabs, 2 Refill(s ), eRx: [facility], TAKE 1 TABLET ONE TIME DAILY AT BEDTIME Start Date: 11/07/15 Status: Ordered BD Ultra- Fine Silke Pen [place] BD Ultra- Fine Silke Pen [place], See Instructions, dispense 3 mo supply-dx: 250.00, # 3 boxes, 3 Refill(s), Pharmacy: [facility], dispense 3 mo supply- dx: 250.00 Start Date: 07/06/14 Status: Ordered carvedilol 25 mg oral tablet See Instructions, TAKE 1/2 TABLET TWICE DAILY, # 90 tabs, eRx: [facility], TAKE 1/2 TABLET TWICE DAILY Start Date: 06/19/16 Status: Ordered clopidogrel 75 mg oral tablet See Instructions, TAKE 1 TABLET EVERY DAY, # 90 tabs, eRx: [facility], TAKE 1 TABLET EVERY [...] dose, # 180 tabs, 3 Refill(s), Pharmacy: [facility], 1 tabs Oral BID,x90 days,Instr:cancel the 2.5 mg dose Start Date: 05/23/16 Stop Date: 05/18/17 Status: Ordered Flomax 0.4 mg oral capsule See Instructions, TAKE 1 CAPSULE EVERY DAY (PLEASE SCHEDULE A COMPLETE PHYSICAL WITH DR PAT), # 90 caps, 2 Refill(s), eRx: [facility], TAKE 1 CAPSULE EVERY [...] evening, # 120 vials, 11 Refill(s), Pharmacy: [id number] Start Date: 07/18/15 Status: Ordered isosorbide mononitrate 20 mg oral tablet See Instructions, TAKE 1 TABLET TWICE DAILY, # 180 tabs, 2 Refill(s), eRx: [facility], TAKE 1 TABLET TWICE DAILY Start Date: 11/07/15 Status: Ordered Januvia 50 mg oral tablet See Instructions, TAKE 1 TABLET EVERY DAY, # 90 tabs, 3 Refill(s), eRx: [facility], TAKE 1 TABLET EVERY DAY Start Date: 07/17/15 Status: Ordered Klor-Con 10 10 mEq, Oral, Daily, Dr. Colmenares, 0 Refill(s) Start Date: 03/17/15 Status: Ordered Levemir FlexTouch 100 units/mL subcutaneous solution See Instructions, INJECT 37 UNITS SUBCUTANEOUSLY ONE TIME A DAY AT BEDTIME, # 45 mL, 1 Refill(s), eRx: [facility], INJECT 37 UNITS SUBCUTANEOUSLY ONE TIME A DAY AT BEDTIME Start Date: 03/01/16 Status: Ordered levothyroxine 50 mcg (0.05 mg) oral tablet See Instructions, TAKE 1 TABLET EVERY DAY, # 90 tabs, 2 Refill(s), eRx: [facility], TAKE 1 TABLET EVERY DAY Start Date: 11/07/15 Status: Ordered lisinopril 2.5 mg oral tablet 2.5 mg 1 tabs, Oral, Daily, # 90 tabs, 3 Refill(s), Pharmacy: [facility] Start Date: 08/21/15 Status: Ordered lutein 20 mg oral tablet 1 tabs, Oral, Daily, # 30 tabs, 0 Refill(s) Start Date: 05/10/14 Status: Ordered memantine 10 mg oral tablet 5 mg 0.5 tabs, Oral, BID, # 90 tabs, 3 Refill(s), [facility]: [facility], 0.5 tabs Oral BID,x90 [...] TABLET EVERY DAY, # 90 tabs, [facility]Rx: [facility], TAKE 1 TABLET EVERY DAY Start Date: 06/19/16 Status: Ordered Ventolin HFA 90 mcg/inh inhalation aerosol 1 puffs, Inhalation, QID, as needed for wheezing, # 3 Each, 3 Refill(s), Pharmacy: [facility], Discontinue Xopenex, 1 puffs Inhalation [...] See scanned document 2Result Comment: [08/23/2015] Zostavax 58290 unit Procedures Procedure Date Related Diagnosis Body Site Colonoscopy 2008 Colonoscopy 2005 for small [place] 1999 catherization x2 anteriograms 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 The joint may be stiff or hurt when you move it. One or more joints may be affected. There are many types of arthritis. Your doctor may not know what type you have right away. The most common cause of arthritis is wear and tear on the joint (osteoarthritis). HOME CARE Only take medicine as told by your doctor. Rest the joint as much as possible. Raise (elevate) your joint if it is puffy. Use crutches if the painful joint is in your leg. Drink enough fluids to keep your pee (urine) clear or pale yellow. Follow your doctor's diet instructions. Use cold packs for very bad joint pain for 10 to 15 minutes every hour. Ask your doctor if it is okay for you to use hot packs. Exercise as told by your doctor. Take a warm shower if you have stiffness in the morning. Move your sore joints throughout the day. GET HELP RIGHT AWAY IF: You have a fever. You have very bad joint pain, puffiness, or redness. You have many joints that are painful and puffy. You are not getting better with treatment. You have very bad back pain or leg weakness. You cannot control when you poop (bowel movement) or pee (urinate). You do not feel better in 24 hours or are getting worse. You are having side effects from your medicine. MAKE SURE YOU: Understand these instructions. Will watch your condition. Will get help right away if you are not doing well or get worse. This information is not intended to replace advice given to you by your health care provider. Make sure you discuss any questions you have with your health care provider. Document Released: 02/04/2011 Document Revised: 05/11/2013 Document Reviewed: [facility] Patient Information [address] [facility]. No follow up information was provided. Extracted from: Title: foot callus, osteoarthritis Author: Josias Pat MD Date: left knee, CAD, DM, HTN Impression and Plan Diagnosis Foot callus (RGR92-[id number] L84, Working, Medical). CKD (chronic kidney disease) stage 3, GFR 30-59 ml/min (MLX59-TJ N18.3, Working , Medical). Alzheimer disease (OGZ78-MK G30.9, Working, Medical). Hypertension, benign (ZPU93-PO I10, Working, Medical). Hyperlipemia (QBR23-TC E78.2, Working, Medical). Uncontrolled type 2 diabetes mellitus (LXK64-FH E11.65, Working, Medical). Osteoarthritis of left knee (KDY25-EU M17.9, Working, Medical). CAD (coronary artery disease) (NUN91-YQ I25.10, Working, Medical). Plan: 1) Donut type corn pad recommended for the right fifth toe. 2) Continue your present meds. 3) Followup as scheduled, and as needed.. Orders Orders (Selected) Outpatient Orders Ordered Office Visit Level 4 Est 64076: . Dx/Order Association Plan: Diagnosis: Alzheimer disease Comment: Diagnosis: CAD (coronary artery disease) Comment: Ordered: Office Visit Level 4 Est 93917; 07/22/16 19:23:00 CDT, Foot callus | Osteoarthritis of left knee | Uncontrolled type 2 diabetes mellitus | Hypertension, benign | CKD (chronic kidney disease) stage 3, GFR 30- 59 ml/min | Hyperlipemia | CAD (coronary artery disease) Diagnosis: CKD (chronic kidney disease) stage 3, GFR 30-59 ml/min Comment: Ordered: Office Visit Level 4 Est [id number]; 07/22/16 19:23:00 CDT, Foot callus | Osteoarthritis of left knee | Uncontrolled type 2 diabetes mellitus | Hypertension, benign | CKD (chronic kidney disease) stage 3, GFR 30- 59 ml/min | Hyperlipemia | CAD (coronary artery disease) Diagnosis: Foot callus Comment: Ordered: Office Visit Level 4 Est [id number]; 07/22/16 19:23:00 CDT, Foot callus | Osteoarthritis of left knee | Uncontrolled type 2 diabetes mellitus | Hypertension, benign | CKD (chronic kidney disease) stage 3, GFR 30- 59 ml/min | Hyperlipemia | CAD (coronary artery disease) Diagnosis: Hyperlipemia Comment: Ordered: Office Visit Level 4 Est 53842; 07/22/16 19:23:00 CDT, Foot callus | Osteoarthritis of left knee | Uncontrolled type 2 diabetes mellitus | Hypertension, benign | CKD (chronic kidney disease) stage 3, GFR 30- 59 ml/min | Hyperlipemia | CAD (coronary artery disease) Diagnosis: Hypertension, benign Comment: Ordered: Office Visit Level 4 Est [id number]; 07/22/16 19:23:00 CDT, Foot callus | Osteoarthritis of left knee | Uncontrolled type 2 diabetes mellitus | Hypertension, benign | CKD (chronic kidney disease) stage 3, GFR 30- 59 ml/min | Hyperlipemia | CAD (coronary artery disease) Diagnosis: Osteoarthritis of left knee Comment: Ordered: Office Visit Level 4 Est [id number]; 07/22/16 19:23:00 CDT, Foot callus | Osteoarthritis of left knee | Uncontrolled type 2 diabetes mellitus | Hypertension, benign | CKD (chronic kidney disease) stage 3, GFR 30- 59 ml/min | Hyperlipemia | CAD (coronary artery disease) Diagnosis: Uncontrolled type 2 diabetes mellitus Comment: Ordered: Office Visit Level 4 Est [id number]; 07/22/16 19:23:00 CDT, Foot callus | Osteoarthritis of left knee | Uncontrolled type 2 diabetes mellitus | Hypertension, benign | CKD (chronic kidney disease) stage 3, GFR 30- 59 ml/min | Hyperlipemia | CAD (coronary artery disease) End of Orders ."
--- OUTSIDE RECORDS SUMMARY | 2017-03-15 12:59 | XMS REPORT | Referral Summary ---
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 Name Role Phone Mac Pat Primary Care Physician [phone] Encounter VC Date(s): 03/17/15 - 03/17/15 [facility], Family Medicine [address] [place] [address] [place] [id number] Discharge Diagnosis: Diabetes Type 2, uncontrolled Discharge Diagnosis: Dementia Discharge Diagnosis: Benign essential hypertension Discharge Diagnosis: Valvular heart disease Discharge Diagnosis: LAURA on CPAP Discharge Diagnosis: Primary hypercholesterolemia Discharge Diagnosis: CAD (coronary artery disease) Discharge Diagnosis: Dyspnea with exertion Discharge Disposition: Home or Self Care Attending Physician: Josias Pat MD Admitting Physician: Josias Pat MD Vital Signs Most recent to 1 oldest [Reference Range]: Temperature Tympanic 36.5 degC [36.6-38.1 degC] *LOW* (03/17/15 9:39 AM) Peripheral Pulse 80 bpm Rate [60-100 bpm] (03/17/15 9:39 AM) Blood Pressure 124/52 mmHg [90-140/60-90 mmHg] (03/17/15 9:39 AM) Problem List Condition Effective Dates Status [...] Diabetes mellitus Active type 2, uncontrolled(Confirm ed) Allergies, Adverse Reactions, Alerts Substance Reaction Severity Status aspirin epistaxis Active glimepiride SWELLING Active pioglitazone1 Active 1swelling Medications atorvastatin 40 mg oral tablet 1 tabs, Oral, Bedtime (once a day), # 90 tabs, 3 Refill(s), Pharmacy: [facility], 1 tabs Oral Bedtime (once a day) Start Date: 07/06/14 Status: Ordered BD Ultra- Fine Silke Pen [place] BD Ultra- Fine [place], See Instructions, dispense 3 mo supply-dx: 250.00, # 3 boxes, 3 Refill(s), Pharmacy: [facility], dispense 3 mo supply- dx: 250.00 Special Instructions: dispense 3 mo supply-dx: 250.00 Start Date: 07/06/14 Status: Ordered carvedilol 25 mg oral tablet 0.5 tabs, Oral, BID, # 90 tabs, 3 Refill(s), Pharmacy: [facility], 0.5 tabs Oral BID Start Date: 07/06/14 Status: Ordered donepezil 10 mg oral tablet 1 tabs, Oral, Bedtime (once a day), # 90 tabs, 3 Refill(s), Pharmacy: [facility], 1 tabs Oral Bedtime (once a day),x90 days Start Date: 07/06/14 Stop Date: 07/01/15 Status: Ordered Flomax 0.4 mg oral capsule 1 caps, Oral, Daily, # 90 caps, 0 Refill(s), Pharmacy: [facility], 1 caps Oral Daily Start Date: 01/23/15 Status: Ordered furosemide 20 mg oral tablet 1 tabs, Oral, Daily, Dr. Colmenares, 0 Refill(s) Special Instructions: Dr. Colmenares Start Date: 03/17/15 Status: Ordered isosorbide mononitrate 20 mg oral tablet 1 tabs, Oral, BID, USE THIS SCRIPT. Cancel script for 1.5 tabs BID, # 180 tabs , 1 Refill(s), Pharmacy: [facility], 1 tabs Oral BID,Instr:USE THIS SCRIPT. Cancel script for 1.5 tabs BID Special Instructions: USE THIS SCRIPT. Cancel script for 1.5 tabs BID Start Date: 07/11/14 Status: Ordered Januvia 50 mg oral tablet 1 tabs, Oral, Daily, # 90 tabs, 3 Refill(s), Pharmacy: [facility] Start Date: 07/06/14 Status: Ordered Klor-Con 10 10 mEq, Oral, Daily, Dr. Colmenares, 0 Refill(s) Special Instructions: Dr. Colmenares Start Date: 03/17/15 Status: Ordered Levemir FlexPen 100 units/mL subcutaneous solution See Instructions, 37 units SubCutaneous Bedtime (once a day), # 15 mL, 3 Refill( s), other reason (Rx), 30 units SubCutaneous Bedtime (once a day),Instr: dispense 3 mo. supply, rotate injection sites--dx: 250.00 Special Instructions: 37 units SubCutaneous Bedtime (once a day) Start Date: 12/14/14 Status: Ordered levothyroxine 50 mcg (0.05 mg) oral tablet 1 tabs, Oral, Daily, # 90 tabs, 3 Refill(s), Pharmacy: [facility], 1 tabs Oral Daily,x90 days Start Date: 07/06/14 Stop Date: 07/01/15 Status: Ordered lisinopril 2.5 mg oral tablet 1 tabs, Oral, Daily, # 30 tabs, 11 Refill(s), Pharmacy: [id number] Start Date: 01/17/15 Status: Ordered lutein 20 mg oral tablet 1 tabs, Oral, Daily, # 30 tabs, 0 Refill(s) Start Date: 05/10/14 Status: Ordered memantine 10 mg oral tablet 0.5 tabs, Oral, BID, # 90 tabs, 0 Refill(s) Start Date: 11/14/14 Status: Ordered nitroglycerin 0.4 mg sublingual tablet 1 tabs, SubLingual, q5min, as needed for chest pain, not to exceed 3 doses/15 min--if pain persists, seek medical attention, # 100 tabs, 3 Refill(s), Pharmacy : [facility], 1 tabs SubLingual q5min,PRN:as needed for chest pain,Instr: not to exceed 3... Special Instructions: not to exceed 3 doses/15 min--if pain persists, seek medical attention Start Date: 10/24/14 Status: Ordered pantoprazole 40 mg oral delayed release tablet 1 tabs, Oral, Every other day, # 90 tabs, 3 Refill(s), Pharmacy: [facility] , 1 tabs Oral Daily Start Date: 07/06/14 Status: Ordered Plavix 75 mg oral tablet 1 tabs, Oral, Daily, # 90 tabs, 3 Refill(s), Pharmacy: [facility], 1 tabs Oral Daily Start Date: 07/06/14 Status: Ordered Spiriva 18 mcg inhalation capsule 1 Each, Inhalation, Daily, as needed for difficulty breathing, use two inhalations of one capsule for each dose, # 90 Each, 1 Refill(s), Pharmacy: [facility], 1 Each Inhalation Daily,PRN:as needed for difficulty breathing, Instr:use two inhalations... Special Instructions: use two inhalations of one capsule for each dose Start Date: 07/27/14 Status: Ordered Vitamin B12 2,500 mcg, Oral, Daily, 0 Refill(s) Start Date: 05/10/14 Status: Ordered Xopenex HFA 45 mcg/inh inhalation aerosol 1 puffs, Inhalation, q4hr, as needed for wheezing, # 15 g, 3 Refill(s), Pharmacy : [id number] Start Date: 02/24/15 Status: Ordered Results No data available for this section Immunizations Vaccine Date Refusal Reason influenza virus vaccine, inactivated1 08/22/14 influenza virus vaccine, live 08/03/13 influenza virus vaccine, live 09/01/12 pneumococcal 13-valent conjugate vaccine 09/13/14 pneumococcal 23-polyvalent vaccine 10/19/01 tetanus-diphth toxoids (Td) adult/adol 06/09/10 tetanus-diphth toxoids (Td) adult/adol 10/19/01 tetanus-diphth toxoids (Td) adult/adol 10/07/96 zoster vaccine live 02/06/09 1Result Comment: [08/22/2014] See scanned document Procedures Procedure Date Related Diagnosis Body Site Colonoscopy 2009 Colonoscopy 2005 for small [place] 2000 catherization x2 anteriograms 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 It is not just about losing weight. It has many health benefits, such as: Improving your overall fitness, flexibility, and endurance. Increasing your bone density. Helping with weight control. Decreasing your body fat. Increasing your muscle strength. Reducing stress and tension. Improving your overall health. People with diabetes who exercise gain additional benefits because exercise: Reduces appetite. Improves the body's use of blood sugar (glucose ). Helps lower or control blood glucose. Decreases blood pressure. Helps control blood lipids (such as cholesterol and triglycerides). Improves the body's use of the hormone insulin by: Increasing the body's insulin sensitivity. Reducing the body's insulin needs. Decreases the risk for heart disease because exercising: Lowers cholesterol and triglycerides levels. Increases the levels of good cholesterol (such as high-density lipoproteins [HDL]) in the body. Lowers blood glucose levels. YOUR ACTIVITY PLAN Choose an activity that you enjoy and set realistic goals. Your health care provider or agricultural extension educator can help you make an activity plan that works for you. You can break activities into 2 or 3 sessions throughout the day. Doing so is as good as one long session. Exercise ideas include: Taking the dog for a walk. Taking the stairs instead of the elevator. Dancing to your favorite song. Doing your favorite exercise with a friend. RECOMMENDATIONS FOR EXERCISING WITH TYPE 1 OR TYPE 2 DIABETES Check your blood glucose before exercising. If blood glucose levels are greater than 240 mg/dL, check for urine ketones. Do not exercise if ketones are present. Avoid injecting insulin into areas of the body that are going to be exercised. For example, avoid injecting insulin into: The arms when playing tennis. The legs when jogging. Keep a record of: Food intake before and after you exercise. Expected peak times of insulin action. Blood glucose levels before and after you exercise. The type and amount of exercise you have done. Review your records with your health care provider. Your health care provider will help you to develop guidelines for adjusting food intake and insulin amounts before and after exercising. If you take insulin or oral hypoglycemic agents, watch for signs and symptoms of hypoglycemia. They include: Dizziness. Shaking. Sweating. Chills. Confusion. Drink plenty of water while you exercise to prevent dehydration or heat stroke. Body water is lost during exercise and must be replaced. Talk to your health care provider before starting an exercise program to make sure it is safe for you. Remember, almost any type of activity is better than none. Document Released: 01/30/2005 Document Revised: 07/13/2014 Document Reviewed: [facility] Patient Information 2014 [employer] [facility]. No follow up information was provided. Extracted from: Title: CAD, DM, HTN Author: Josias Pat MD Date: 03/17/15 Impression and Plan Diagnosis Benign essential hypertension (ICD9 401.1, Discharge, Medical). CAD (coronary artery disease) (ICD9 414.9, Discharge, Medical). Dementia (ICD9 294.20, Discharge, Medical). Diabetes Type 2, uncontrolled (ICD9 250.00, Discharge, Medical). Dyspnea with exertion (ICD9 786.09, Discharge, Medical). LAURA on CPAP (ICD9 327.23, Discharge, Medical). Primary hypercholesterolemia (ICD9 272.0, Discharge, Medical). Plan: Restart your Lisinopril 2.5 mg daily. Get your heart cath, as planned. See me in 2 months and as needed. Continue your other meds. , Get lab in 2 weeks. This will recheck your kidney function after your heart cath, and after restarting your Lisinopril. . Orders Orders (Selected) Outpatient Orders Ordered Office Visit Level 4 Est 30752: . Dx/Order Association Plan: Diagnosis: Benign essential hypertension Comment: Ordered: Office Visit Level 4 Est [id number]; 03/17/15 10:02:00 CDT, Valvular heart disease | Dyspnea with exertion | Diabetes Type 2, uncontrolled | CAD (coronary artery disease) | Benign essential hypertension Diagnosis: CAD (coronary artery disease) Comment: Ordered: Office Visit Level 4 Est [id number]; 03/17/15 10:02:00 CDT, Valvular heart disease | Dyspnea with exertion | Diabetes Type 2, uncontrolled | CAD (coronary artery disease) | Benign essential hypertension Diagnosis: Dementia Comment: Ordered: Office Visit Level 4 Est 29528; 03/17/15 10:02:00 CDT, Valvular heart disease | Dyspnea with exertion | Diabetes Type 2, uncontrolled | CAD (coronary artery disease) | Benign essential hypertension Diagnosis: Diabetes Type 2, uncontrolled Comment: Ordered: Office Visit Level 4 Est 40906; 03/17/15 10:02:00 CDT, Valvular heart disease | Dyspnea with exertion | Diabetes Type 2, uncontrolled | CAD (coronary artery disease) | Benign essential hypertension Diagnosis: Dyspnea with exertion Comment: Ordered: Office Visit Level 4 Est [id number]; 03/17/15 10:02:00 CDT, Valvular heart disease | Dyspnea with exertion | Diabetes Type 2, uncontrolled | CAD (coronary artery disease) | Benign essential hypertension Diagnosis: LAURA on CPAP Comment: Ordered: Office Visit Level 4 Est 74582; 03/17/15 10:02:00 CDT, Valvular heart disease | Dyspnea with exertion | Diabetes Type 2, uncontrolled | CAD (coronary artery disease) | Benign essential hypertension Diagnosis: Primary hypercholesterolemia Comment: Ordered: Office Visit Level 4 Est 50975; 03/17/15 10:02:00 CDT, Valvular heart disease | Dyspnea with exertion | Diabetes Type 2, uncontrolled | CAD (coronary artery disease) | Benign essential hypertension Diagnosis: Valvular heart disease Comment: Ordered: Office Visit Level 4 Est 65824; 03/17/15 10:02:00 CDT, Valvular heart disease | Dyspnea with exertion | Diabetes Type 2, uncontrolled | CAD (coronary artery disease) | Benign essential hypertension End of Orders ."
--- OUTSIDE RECORDS SUMMARY | 2017-03-15 12:59 | XMS REPORT | Referral Summary ---
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 Role Phone Mac Pat Primary Care Physician [phone] Encounter VC Date(s): 02/22/16 - 02/22/16 [facility] [address] [place] [id number] Discharge Disposition: 01-Home or Self Care Attending Physician: Josias Pat MD Admitting Physician: Josias Pat MD Vital Signs Most recent to 1 oldest [Reference Range]: Temperature Tympanic 36.4 degC [36.6-38.1 degC] *LOW* (02/22/16 10:09 AM) Peripheral Pulse 80 bpm Rate [60-100 bpm] (02/22/16 10:09 AM) Blood Pressure 136/60 mmHg [90-140/60-90 mmHg] (02/22/16 10:09 AM) Problem List Condition Effective Dates Status [...] type 2, uncontrolled(Confirm ed) Need for Active nfstcamjyd-egrpira-h ertussis (Tdap) vaccine(Confirmed) Allergies, Adverse Reactions, Alerts Substance Reaction Severity Status aspirin epistaxis Active glimepiride SWELLING Active pioglitazone1 Active 1swelling Medications atorvastatin 40 mg oral tablet See Instructions, TAKE 1 TABLET ONE TIME DAILY AT BEDTIME, # 90 tabs, 2 Refill(s ), eRx: [facility], TAKE 1 TABLET ONE TIME DAILY AT BEDTIME Start Date: 11/07/15 Status: Ordered BD Ultra- Fine Sil[place] BD Ultra- Fine [place], See Instructions, dispense 3 mo supply-dx: 250.00, # 3 boxes, 3 Refill(s), Pharmacy: [facility], dispense 3 mo supply- dx: 250.00 Start Date: 07/06/14 Status: Ordered carvedilol 25 mg oral tablet See Instructions, TAKE 1/2 TABLET TWICE DAILY, # 90 tabs, 2 Refill(s), eRx: [facility], TAKE 1/2 TABLET TWICE [...] PAT), # 90 caps, 2 Refill(s), eRx: [facility], TAKE 1 CAPSULE EVERY [...] evening, # 120 vials, 11 Refill(s), Pharmacy: [facility] [id number] Start Date: 07/18/15 Status: Ordered isosorbide mononitrate 20 mg oral tablet See Instructions, TAKE 1 TABLET TWICE DAILY, # 180 tabs, 2 Refill(s), eRx: [facility], TAKE 1 TABLET TWICE DAILY Start Date: 11/07/15 Status: Ordered Januvia 50 mg oral tablet See Instructions, TAKE 1 TABLET EVERY DAY, # 90 tabs, 3 Refill(s), eRx: [facility], TAKE 1 TABLET EVERY DAY Start Date: 07/17/15 Status: Ordered Klor-Con 10 10 mEq, Oral, Daily, Dr. Colmenares, 0 Refill(s) Start Date: 03/17/15 Status: Ordered Levemir FlexTouch 100 units/mL subcutaneous solution See Instructions, INJECT 37 UNITS SUBCUTANEOUSLY ONE TIME A DAY AT BEDTIME, # 30 mL, 1 Refill(s), Pharmacy: [facility], INJECT 37 UNITS SUBCUTANEOUSLY ONE TIME A DAY AT BEDTIME Start Date: 11/08/15 Status: Ordered levothyroxine 50 mcg (0.05 mg) oral tablet See Instructions, TAKE 1 TABLET EVERY DAY, # 90 tabs, 2 Refill(s), eRx: [facility], TAKE 1 TABLET EVERY DAY Start Date: 11/07/15 Status: Ordered lisinopril 2.5 mg oral tablet 2.5 mg 1 tabs, Oral, Daily, # 90 tabs, 3 Refill(s), Pharmacy: [facility] Start Date: 08/21/15 Status: Ordered lutein 20 mg oral tablet 1 tabs, Oral, Daily, # 30 tabs, 0 Refill(s) Start Date: 05/10/14 Status: Ordered memantine 10 mg oral tablet 5 mg 0.5 tabs, Oral, BID, # 90 tabs, 3 Refill(s), Pharmacy: [facility], 0.5 tabs Oral BID,x90 [...] DAY, # 90 tabs, 3 Refill(s), eRx: [facility], TAKE 1 TABLET EVERY DAY Start Date: 07/17/15 Status: Ordered Plavix 75 mg oral tablet See Instructions, TAKE 1 TABLET EVERY DAY, # 90 tabs, 3 Refill(s), eRx: [facility], TAKE 1 TABLET EVERY DAY Start Date: 07/17/15 Status: Ordered Ventolin HFA 90 mcg/inh inhalation aerosol 1 puffs, Inhalation, QID, as needed for wheezing, # 3 Each, 3 Refill(s), Pharmacy: [facility], Discontinue Xopenex, 1 puffs Inhalation QID,PRN:as needed for wheezing Start Date: 05/17/15 Status: Ordered Vitamin B12 2,500 mcg, Oral, Daily, 0 Refill(s) Start Date: 05/10/14 Status: Ordered Results Hematology Most recent to 1 oldest [Reference Range]: WBC [4.8-10.8 7.5 10*3/uL 10*3/uL] (02/22/16 11:00 AM) RBC [4.60-6.20] 4.20 *LOW* (02/22/16 11:00 AM) Hgb [14.0-18.0 12.3 gm/dL gm/dL] *LOW* (02/22/16 11:00 AM) Hct [42.0-52.0 %] 36.7 % *LOW* (02/22/16 11:00 AM) MCV [82.0-99.0 fL] 87.4 fL (02/22/16 11:00 AM) MCH [27.0-32.0 pg] 29.3 pg (02/22/16 11:00 AM) MCHC [32.0-36.0 33.5 gm/dL gm/dL] (02/22/16 11:00 AM) RDW [11.5-14.5 %] 14.4 % (02/22/16 11:00 AM) Platelet [150-400 246 10*3/uL 10*3/uL] (02/22/16 11:00 AM) MPV [8.8-14.8 fL] 9.9 fL (02/22/16 11:00 AM) Immature 0.4 % Granulocytes (02/22/16:00 AM) [0.0-1.0 %] Neutrophils [51-75 58 % %] (02/22/16 11:00 AM) Lymphocytes [20-46 24 % %] (02/22/16:00 AM) Monocytes [4-11 %] 13 % *HI* (02/22/16:00 AM) Eosinophils [0-4 %] 5 % *HI* (02/22/16:00 AM) Basophils [0-2 %] 1 % (02/22/16 11:00 AM) Neutro Absolute 4.31 10*3 [1.90-7.00 10*3] (02/22/16 11:00 AM) Lymph Absolute 1.77 10*3 [0.80-3.30 10*3] (02/22/16 11:00 AM) [place] Absolute 0.94 10*3 [0.30-1.00 10*3] (02/22/16 11:00 AM) Eos Absolute 0.36 10*3 [0.00-0.50 10*3] (02/22/16 11:00 AM) Baso Absolute 0.05 10*3 [0.00-0.20 10*3] (02/22/16 11:00 AM) Chemistry Most recent to 1 oldest [Reference Range]: Sodium Lvl [135-144 139 mEq/L mEq/L] (02/22/16 11:00 AM) Potassium Lvl 4.2 mEq/L [3.5-5.2 mEq/L] (02/22/16 11:00 AM) Chloride [99-111 107 mEq/L mEq/L] (02/22/16 11:00 AM) CO2 [23-31 mEq/L] 27 mEq/L (3/31/16 11:00 AM) AGAP [3-20] 5 (02/22/16 11:00 AM) BUN [8-26 mg/dL] 16 mg/dL (02/22/16 11:00 AM) Glucose Lvl [70-99 114 mg/dL mg/dL] *HI* (02/22/16 11:00 AM) Creatinine Lvl 1.25 mg/dL [0.72-1.25 mg/dL] (02/22/16 11:00 AM) eGFR [>60 mL/min] 55 mL/min 1 *ABN* (02/22/16 11:00 AM) Calcium Lvl 9.0 mg/dL [8.9-10.5 mg/dL] (02/22/16 11:00 AM) LDL Direct [0-129 98 mg/dL mg/dL] (02/22/16 11:00 AM) 1Result Comment: Multiply eGFR results [...] See scanned document 2Result Comment: [08/23/2015] Zostavax 46084 unit Procedures Procedure Date Related Diagnosis Body Site Colonoscopy 2009 Colonoscopy 2006 for small [place] 2000 catherization x2 anteriograms 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 The inflammation often causes mucus to develop. This leads to a cough, which is the most common symptom of bronchitis. In acute bronchitis, the condition usually develops suddenly and goes away over time, usually in a couple weeks. Smoking, allergies, and asthma can make bronchitis worse. Repeated episodes of bronchitis may cause further lung problems. CAUSES Acute bronchitis is most often caused by the same virus that causes a cold. The virus can spread from person to person (contagious) through coughing, sneezing, and touching contaminated objects. SIGNS AND SYMPTOMS Cough. Fever. Coughing up mucus. Body aches. Chest congestion. Chills. Shortness of breath. Sore throat. DIAGNOSIS Acute bronchitis is usually diagnosed through a physical exam. Your health care provider will also ask you questions about your medical history. Tests, such as chest X-rays, are sometimes done to rule out other conditions. TREATMENT Acute bronchitis usually goes away in a couple weeks. Oftentimes, no medical treatment is necessary. Medicines are sometimes given for relief of fever or cough. Antibiotic medicines are usually not needed but may be prescribed in certain situations. In some cases, an inhaler may be recommended to help reduce shortness of breath and control the cough. A cool mist vaporizer may also be used to help thin bronchial secretions and make it easier to clear the chest. HOME CARE INSTRUCTIONS Get plenty of rest. Drink enough fluids to keep your urine clear or pale yellow (unless you have a medical condition that requires fluid restriction). Increasing fluids may help thin your respiratory secretions (sputum) and reduce chest congestion, and it will prevent dehydration. Take medicines only as directed by your health care provider. If you were prescribed an antibiotic medicine, finish it all even if you start to feel better. Avoid smoking and secondhand smoke. Exposure to cigarette smoke or irritating chemicals will make bronchitis worse. If you are a smoker, consider using nicotine gum or skin patches to help control withdrawal symptoms. Quitting smoking will help your lungs heal faster. Reduce the chances of another bout of acute bronchitis by washing your hands frequently, avoiding people with cold symptoms, and trying not to touch your hands to your mouth, nose, or eyes. Keep all follow-up visits as directed by your health care provider. SEEK MEDICAL CARE IF: Your symptoms do not improve after 1 week of treatment. SEEK IMMEDIATE MEDICAL CARE IF: You develop an increased fever or chills. You have chest pain. You have severe shortness of breath. You have bloody sputum. You develop dehydration. You faint or repeatedly feel like you are going to pass out. You develop repeated vomiting. You develop a severe headache. MAKE SURE YOU: Understand these instructions. Will watch your condition. Will get help right away if you are not doing well or get worse. This information is not intended to replace advice given to you by your health care provider. Make sure you discuss any questions you have with your health care provider. Document Released: 12/18/2005 Document Revised: 03/27/2015 Document Reviewed: [facility] Patient Information 2015 [employer]. No follow up information was provided. Extracted from: Title: bronchitis, sinusitis, DM, Author: Josias Pat MD Date: hyperlipidemia, LAURA, Alzheimers, HTN Impression and Plan Diagnosis Alzheimer disease (PZW56-BW G30.9, Working, Medical). Hypertension, benign (NUS70-NW I10, Working, Medical). Hypothyroid (DGT72-SB E03.9, Working, Medical). CAD (coronary artery disease) (ELQ29-SY I25.10, Working, Medical). LAURA on CPAP (GXF72-TQ G47.33, Working, Medical). Hypercholesterolemia (OFZ96-WA E78.0, Working, Medical). Well controlled type 2 diabetes mellitus (ZGP78-NZ E11.9, Working, Medical). Anemia (UYG01-JT D64.9, Working, Medical). Acute bronchitis (XTT65-NV J20.9, Working, Medical). Acute pansinusitis (EHZ98-GK J01.40, Working, Medical). Plan: 1) Continue your current meds. 2) Lab today. 3) See me in 3 months and as needed.. Orders Orders (Selected) Outpatient Orders InProcess (In Process) Hgb A1c: Ordered Office Visit Level 4 Est 37221: Completed BMP: CBC w/ Differential: LDL Direct: eGFR: . Dx/Order Association Plan: Diagnosis: Acute bronchitis Comment: Ordered: Office Visit Level 4 Est 29147; 02/22/16 10:28:00 CDT, Acute bronchitis | Well controlled type 2 diabetes mellitus | CAD (coronary artery disease) | Hypertension, benign | COPD (chronic obstructive pulmonary disease) Diagnosis: Acute pansinusitis Comment: Diagnosis: Alzheimer disease Comment: Diagnosis: Anemia Comment: Other status: CBC w/ Differential; Blood, Routine Collect, 10:49:00 CDT, Once, Stop date 02/22/16 10:49:00 CDT, Lab Collect, Anemia | Hypertension, benign (Completed) Diagnosis: CAD (coronary artery disease) Comment: Ordered: Office Visit Level 4 Est 63498; 02/22/16 10:28:00 CDT, Acute bronchitis | Well controlled type 2 diabetes mellitus | CAD (coronary artery disease) | Hypertension, benign | COPD (chronic obstructive pulmonary disease) Other status: LDL Direct; Blood, Routine Collect, 02/22/16 10:49: 00 CDT, Once, Stop date 02/22/16 10:49:00 CDT, Lab Collect, Hypercholesterolemia | CAD (coronary artery disease) (Completed) Diagnosis: Hypercholesterolemia Comment: Other status: LDL Direct; Blood, Routine Collect, 02/22/16 10:49: 00 CDT, Once, Stop date 02/22/16 10:49:00 CDT, Lab Collect, Hypercholesterolemia | CAD (coronary artery disease) (Completed) Diagnosis: Hypertension, benign Comment: Ordered: Office Visit Level 4 Est 11061; 02/22/16 10:28:00 CDT, Acute bronchitis | Well controlled type 2 diabetes mellitus | CAD (coronary artery disease) | Hypertension, benign | COPD (chronic obstructive pulmonary disease) Other status: BMP; Blood, Routine Collect, 02/22/16 10:49:00 CDT, Once, Stop date 02/22/16 10:49:00 CDT, Lab Collect, Well controlled type 2 diabetes mellitus | Hypertension, benign (Completed) CBC w/ Differential; Blood, Routine Collect , 02/22/16 10:49:00 CDT, Once, Stop date 02/22/16 10:49:00 CDT, Lab Collect, Anemia | Hypertension, benign (Completed) Diagnosis: Hypothyroid Comment: Diagnosis: LAURA on CPAP Comment: Diagnosis: Well controlled type 2 diabetes mellitus Comment: Ordered: Office Visit Level 4 Est 39711; 02/22/16 10:28:00 CDT, Acute bronchitis | Well controlled type 2 diabetes mellitus | CAD (coronary artery disease) | Hypertension, benign | COPD (chronic obstructive pulmonary disease) Other status: BMP; Blood, Routine Collect, 02/22/16 10:49:00 CDT, Once, Stop date 02/22/16 10:49:00 CDT, Lab Collect, Well controlled type 2 diabetes mellitus | Hypertension, benign (Completed) End of Orders ."
--- OUTSIDE RECORDS SUMMARY | 2017-03-15 12:59 | XMS REPORT | Referral Summary ---
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 Role Phone Mac Pat Primary Care Physician [phone] Encounter Date(s): 06/01/15 - 06/01/15 [facility], [facility] [address], [facility] [address] [place], [place] [address] Discharge Disposition: 01-Home or Self Care [...] type 2, uncontrolled(Confirm ed) Need for Active oxkmslftpq-zorfppo-h ertussis (Tdap) vaccine(Confirmed) Allergies, Adverse Reactions, Alerts Substance Reaction Severity Status aspirin epistaxis Active glimepiride SWELLING Active pioglitazone1 Active 1swelling Medications atorvastatin 40 mg oral tablet See Instructions, TAKE 1 TABLET ONE TIME DAILY AT BEDTIME, # 90 tabs, 2 Refill(s ), eRx: [facility], TAKE 1 TABLET ONE TIME DAILY AT BEDTIME Start Date: 11/07/15 Status: Ordered BD Ultra- Fine Silke Pen [place] BD Ultra- Fine [place], See Instructions, dispense 3 mo supply-dx: 250.00, # 3 boxes, 3 Refill(s), Pharmacy: [facility], dispense 3 mo supply- dx: 250.00 Start Date: 07/06/14 Status: Ordered carvedilol 25 mg oral tablet See Instructions, TAKE 1/2 TABLET TWICE DAILY, # 90 tabs, 2 Refill(s), eRx: [facility], TAKE 1/2 TABLET [...] # 90 caps, 2 Refill(s), eRx: [facility], TAKE 1 CAPSULE EVERY DAY (PLEASE SCHEDULE A COMPLETE PHYSICAL WITH DR PAT) Start Date: 11/07/15 Status: Ordered furosemide 20 mg oral tablet 1 tabs, Oral, Daily, Dr. Colmenares, 0 Refill(s) Start Date: 03/17/15 Status: Ordered ipratropium-albuterol 0.5 mg-2.5 mg/3 mLinhalation solution 3 mL, Inhalation, QID, DX: COPD-496., # 120 vials, 11 Refill(s), Pharmacy: [id number] Start Date: 07/18/15 Status: Ordered isosorbide mononitrate 20 mg oral tablet See Instructions, TAKE 1 TABLET TWICE DAILY, # 180 tabs, 2 Refill(s), eRx: [facility], TAKE 1 TABLET TWICE DAILY Start Date: 11/07/15 Status: Ordered Januvia 50 mg oral tablet See Instructions, TAKE 1 TABLET EVERY DAY, # 90 tabs, 3 Refill(s), eRx: [facility], TAKE 1 TABLET EVERY DAY Start Date: 07/17/15 Status: Ordered Klor-Con 10 10 mEq, Oral, Daily, Dr. Colmenares, 0 Refill(s) Start Date: 03/17/15 Status: Ordered Levemir FlexTouch 100 units/mL subcutaneous solution See Instructions, INJECT 37 UNITS SUBCUTANEOUSLY ONE TIME A DAY AT BEDTIME, # 30 mL, 1 Refill(s), Pharmacy: [facility], INJECT 37 UNITS SUBCUTANEOUSLY ONE TIME A DAY AT BEDTIME Start Date: 11/08/15 Status: Ordered levothyroxine 50 mcg (0.05 mg) oral tablet See Instructions, TAKE 1 TABLET EVERY DAY, # 90 tabs, 2 Refill(s), eRx: [facility], TAKE 1 TABLET EVERY DAY Start Date: 11/07/15 Status: Ordered lisinopril 2.5 mg oral tablet 2.5 mg 1 tabs, Oral, Daily, # 90 tabs, 3 Refill(s), Pharmacy: [facility] Start Date: 08/21/15 Status: Ordered lutein 20 mg oral tablet 1 tabs, Oral, Daily, # 30 tabs, 0 Refill(s) Start Date: 05/10/14 Status: Ordered memantine 10 mg oral tablet 5 mg 0.5 tabs, Oral, BID, # 90 tabs, 3 Refill(s), Pharmacy: [facility], 0.5 tabs Oral BID,x90 [...] wheezing, # 3 Each, 3 Refill(s), Pharmacy: [facility], Discontinue Xopenex, 1 puffs Inhalation [...] See scanned document 2Result Comment: [08/23/2015] Zostavax 07078 unit Procedures Procedure Date Related Diagnosis Body Site Colonoscopy 2008 Colonoscopy 2006 for small [place] 2000 catherization x2 anteriograms 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
--- OUTSIDE RECORDS SUMMARY | 2017-03-15 12:59 | XMS REPORT | Referral Summary ---
Author Author [facility], Family Medicine Organization [facility] Address Unknown Phone Unavailable Care Team Providers Care Computer Numerical Control Grinder Name Role Phone Mac Pat Primary Care Physician [phone] Encounter Date(s): 11/26/16 - 11/26/16 [facility], Family [address] [place] [id number] Discharge Diagnosis: Hypertension, benign Discharge Diagnosis: GERD (gastroesophageal reflux disease) Discharge Diagnosis: Diabetes mellitus type 2, uncontrolled Discharge Diagnosis: Alzheimer disease Discharge Diagnosis: LAURA on CPAP Discharge Diagnosis: BPH with urinary obstruction Discharge Diagnosis: Hyperlipemia Discharge Diagnosis: CKD (chronic kidney disease) stage 3, GFR 30-59 ml/min Discharge Diagnosis: Diabetic nephropathy 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 Discharge Diagnosis: Hypothyroid Discharge Diagnosis: Anemia of chronic disease Discharge Diagnosis: Chronic obstructive pulmonary disease (COPD) Discharge Disposition: 01-Home or Self Care Attending Physician: Josias Pat MD Admitting Physician: Josias Pat MD Vital Signs Most recent to 1 oldest [Reference Range]: Temperature Tympanic 36.3 degC [36.6-38.1 degC] *LOW* (11/26/16 7:24 AM) Peripheral Pulse 67 bpm Rate [60-100 bpm] (11/26/16 7:24 AM) Blood Pressure 130/55 mmHg [90-140/60-90 mmHg] (11/26/16 7:24 AM) SpO2 94 % (11/26/16 7:24 AM) Problem List Condition Effective Dates Status [...] type 2, uncontrolled(Confirm ed) Need for Active oakhjwbhnz-evbpoqo-e ertussis (Tdap) vaccine(Confirmed) Allergies, Adverse Reactions, Alerts Substance Reaction Severity Status aspirin epistaxis Active glimepiride SWELLING Active pioglitazone1 Active 1swelling Medications atorvastatin 40 mg oral tablet See Instructions, TAKE 1 TABLET ONE TIME DAILY AT BEDTIME, # 90 tabs, eRx: [facility], TAKE 1 TABLET ONE TIME DAILY AT BEDTIME Start Date: 08/05/16 Status: Ordered BD Ultra- Fine Silke Pen [place] BD Ultra- Fine Silke Pen [place], See Instructions, dispense 3 mo supply-dx: 250.00, # 3 boxes, 3 Refill(s), [facility], dispense 3 mo supply- dx: 250.00 Start Date: 07/06/14 Status: Ordered carvedilol 25 mg oral tablet See Instructions, TAKE 1/2 TABLET TWICE DAILY, # 90 tabs, eRx: [facility], TAKE 1/2 TABLET TWICE DAILY Start Date: 09/05/16 Status: Ordered clopidogrel 75 mg oral tablet See Instructions, TAKE 1 TABLET EVERY DAY, # 90 tabs, eRx: [facility], TAKE 1 TABLET EVERY DAY Start Date: 09/05/16 Status: Ordered donepezil 10 mg oral tablet See Instructions, TAKE 1/2 TABLET ONE TIME DAILY AT BEDTIME, # 90 tabs, eRx: [facility] Start Date: 10/02/16 Status: Ordered Eliquis 5 mg oral tablet See Instructions, 1/2 tab Oral BID 90 days, # 45 tabs, 3 Refill(s), Pharmacy: [facility] Start Date: 05/23/16 Status: Ordered furosemide 20 mg oral tablet 1 tabs, Oral, Daily, Dr. Colmenares, 0 Refill(s) Start Date: 03/17/15 Status: Ordered ipratropium-albuterol 0.5 mg-2.5 mg/3 mLinhalation solution See Instructions, USE ONE AMPULE IN NEBULIZER 1 TIME DAILY for COPD J43.9, # 360 mL, 0 Refill(s), Pharmacy: [id number] Start Date: 08/05/16 Status: Ordered isosorbide mononitrate 20 mg oral tablet See Instructions, TAKE 1 TABLET TWICE DAILY, # 180 tabs, eRx: [facility], TAKE 1 TABLET TWICE DAILY Start Date: 08/15/16 Status: Ordered Januvia 50 mg oral tablet See Instructions, TAKE 1 TABLET EVERY DAY, # 90 tabs, eRx: [facility], TAKE 1 TABLET EVERY DAY Start Date: 09/20/16 Status: Ordered Klor-Con 10 10 mEq, Oral, Daily, Dr. Colmenares, 0 Refill(s) Start Date: 03/17/15 Status: Ordered Levemir FlexTouch 100 units/mL subcutaneous solution See Instructions, INJECT 37 UNITS SUBCUTANEOUSLY ONE TIME A DAY AT BEDTIME, # 45 mL, eRx: [facility], INJECT 37 UNITS SUBCUTANEOUSLY ONE TIME A DAY AT BEDTIME Start Date: 08/15/16 Status: Ordered levothyroxine 50 mcg (0.05 mg) oral tablet See Instructions, TAKE 1 TABLET EVERY DAY, # 90 tabs, eRx: [facility], TAKE 1 TABLET EVERY DAY Start Date: 09/20/16 Status: Ordered lisinopril 2.5 mg oral tablet See Instructions, TAKE 1 TABLET EVERY DAY, # 90 tabs, eRx: [facility], TAKE 1 TABLET EVERY DAY Start Date: 10/02/16 Status: Ordered lutein 20 mg oral tablet 1 tabs, Oral, Daily, # 30 tabs, 0 Refill(s) Start Date: 05/10/14 Status: Ordered memantine 10 mg oral tablet 5 mg 0.5 tabs, Oral, BID, # 90 tabs, 3 Refill(s), Pharmacy: [facility], 0.5 tabs Oral BID,x90 days Start Date: 05/24/15 Stop Date: 05/18/16 Status: Ordered nitroglycerin 0.4 mg sublingual tablet 1 tabs, SubLingual, q5min, as needed for chest pain, not to exceed 3 doses/15 min--if pain persists, seek medical attention, # 100 tabs, 3 Refill(s), Pharmacy : [facility], 1 tabs SubLingual q5min,PRN:as needed for chest pain,Instr: not to exceed 3... Start Date: 10/24/14 Status: Ordered pantoprazole 40 mg oral delayed release tablet See Instructions, TAKE 1 TABLET EVERY DAY, # 90 tabs, eRx: [facility], TAKE 1 TABLET EVERY DAY Start Date: 10/02/16 Status: Ordered tamsulosin 0.4 mg oral capsule See Instructions, TAKE 1 CAPSULE EVERY DAY (PLEASE SCHEDULE A COMPLETE PHYSICAL WITH DR PAT), # 90 caps, eRx: [facility], TAKE 1 CAPSULE EVERY DAY (PLEASE SCHEDULE A COMPLETE PHYSICAL WITH DR PAT) Start Date: 10/02/16 Status: Ordered Ventolin HFA 90 mcg/inh inhalation aerosol 1 puffs, Inhalation, QID, as needed for wheezing, # 3 Each, 3 Refill(s), [facility]: [email or web address], Discontinue Xopenex, 1 puffs Inhalation QID,PRN:as needed for wheezing Start Date: 05/17/15 Status: Ordered Vitamin B12 1,000 mcg, Oral, Daily, 0 Refill(s) Start Date: 05/10/14 Status: Ordered Results No data available for this section Immunizations Given and Recorded Vaccine Date Status Refusal Reason tetanus/diphth/pertuss (Tdap) adult/adol 08/21/15 Given influenza virus vaccine, inactivated 08/26/16 Given influenza virus vaccine, inactivated 08/23/15 Recorded influenza virus vaccine, inactivated1 08/22/14 Recorded influenza virus vaccine, live 08/03/13 Given influenza virus vaccine, live 09/01/12 Given pneumococcal 13-valent conjugate vaccine 08/23/15 Recorded pneumococcal 13-valent conjugate vaccine 09/13/14 Given pneumococcal 23-polyvalent vaccine 10/19/01 Recorded tetanus-diphth toxoids (Td) adult/adol 06/09/10 Given tetanus-diphth toxoids (Td) adult/adol 10/19/01 Given tetanus-diphth toxoids (Td) adult/adol 10/07/96 Given zoster vaccine live2 08/23/15 Recorded zoster vaccine live 02/06/09 Given 1Result Comment: [08/22/2014] See scanned document 2Result Comment: [08/23/2015] Zostavax 13743 unit Procedures Procedure Date Related Diagnosis Body Site Colonoscopy 2008 Colonoscopy 2005 for small [place] 1999 catherization x2 anteriograms 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 You may experience the following: Weak urine stream. Dribbling. Feeling like the bladder has not emptied completely. Difficulty starting urination. Getting up frequently at night to urinate. Urinating more frequently during the day. HOME CARE INSTRUCTIONS Monitor your prostatic hyperplasia for any changes. The following actions may help to alleviate any discomfort you are experiencing: Give yourself time when you urinate. Stay away from alcohol. Avoid beverages containing caffeine, such as coffee, tea, and enrique, because they can make the problem worse. Avoid decongestants, antihistamines, and some prescription medicines that can make the problem worse. Follow up with your health care provider for further treatment as recommended. SEEK MEDICAL CARE IF: You are experiencing progressive difficulty voiding. Your urine stream is progressively getting narrower. You are awaking from sleep with the urge to void more frequently. You are constantly feeling the need to void. You experience loss of urine, especially in small amounts. SEEK IMMEDIATE MEDICAL CARE IF: You develop increased pain with urination or are unable to urinate. You develop severe abdominal pain, vomiting, a high fever, or fainting. You develop back pain or blood in your urine. MAKE SURE YOU: Understand these instructions. Will watch your condition. Will get help right away if you are not doing well or get worse. This information is not intended to replace advice given to you by your health care provider. Make sure you discuss any questions you have with your health care provider. Document Released: 11/10/2006 Document Revised: 12/01/2015 Document Reviewed: [employer] Patient Education 2016 [employer] No follow up information was provided. Extracted from: Title: Male HTN Author: Josias Pat MD Date: 11/26/16 Impression and Plan Diagnosis Hyperlipemia (VXE09-IO E78.2, Discharge, Medical). CKD (chronic kidney disease) stage 3, GFR 30-59 ml/min (LMY89-HT N18.3, Discharge, Medical). Alzheimer disease (YLJ95-TX G30.9, Discharge, Medical). Hypertension, benign (KJZ24-ZJ I10, Discharge, Medical). Hypothyroid (BIC12-ZB E03.9, Discharge, Medical). BPH with urinary obstruction (BAU11-GM N40.1, Discharge, Medical). Diabetes mellitus type 2, uncontrolled (NUB94-VN E11.65, Discharge, Medical). Diabetic nephropathy (BIS63-BX E11.21, Discharge, Medical). GERD (gastroesophageal reflux disease) (BKF20-XB K21.9, Discharge, Medical). Chronic obstructive pulmonary disease (COPD) (HDT40-JS J44.9, Discharge, Medical ). LAURA on CPAP (NYI92-YY G47.33, Discharge, Medical). Anemia of chronic disease (MYE70-ME D63.8, Discharge, Medical). CAD in [place] artery (OCY52-GS I25.10, Discharge, Medical). Plan: 1) Non-fasting lab ordered today. 2) Continue your present meds. 3) See me in 3 months and as needed.. Orders Orders (Selected) Outpatient Orders Ordered Office Visit Level 4 Est 33036: Future (On Hold) Albumin/Creatinine Ratio, Urine: CBC w/ Differential: CMP: Hgb A1c: Lipid Panel: Routine Urinalysis: . Dx/Order Association Plan: Diagnosis: Alzheimer disease Comment: Ordered: Office Visit Level 4 Est 50260; 11/26/16 7:10:00 HEADLINE WRITER, Diabetes mellitus type 2, uncontrolled | CAD in [place] artery | LAURA on CPAP | Hypertension, benign | Hyperlipemia | BPH with urinary obstruction | CKD ( chronic kidney disease) stage 3, GFR 30-59 ml/min | Chronic obstructive pulmo... Diagnosis: Anemia of chronic disease Comment: Ordered: Office Visit Level 4 Est 89589; 11/26/16 7:10:00 HEADLINE WRITER, Diabetes mellitus type 2, uncontrolled | CAD in [place] artery | LAURA on CPAP | Hypertension, benign | Hyperlipemia | BPH with urinary obstruction | CKD ( chronic kidney disease) stage 3, GFR 30-59 ml/min | Chronic obstructive pulmo... Diagnosis: BPH with urinary obstruction Comment: Ordered: Office Visit Level 4 Est 70806; 11/26/16 7:10:00 HEADLINE WRITER, Diabetes mellitus type 2, uncontrolled | CAD in [place] artery | LAURA on CPAP | Hypertension, benign | Hyperlipemia | BPH with urinary obstruction | CKD ( chronic kidney disease) stage 3, GFR 30-59 ml/min | Chronic obstructive pulmo... Diagnosis: CAD in [place] artery Comment: Ordered: Office Visit Level 4 Est 66016; 11/26/16 7:10:00 HEADLINE WRITER, Diabetes mellitus type 2, uncontrolled | CAD in [place] artery | LAURA on CPAP | Hypertension, benign | Hyperlipemia | BPH with urinary obstruction | CKD ( chronic kidney disease) stage 3, GFR 30-59 ml/min | Chronic obstructive pulmo... Diagnosis: CKD (chronic kidney disease) stage 3, GFR 30-59 ml/min Comment: Ordered: Office Visit Level 4 Est 10543; 11/26/16 7:10:00 HEADLINE WRITER, Diabetes mellitus type 2, uncontrolled | CAD in [place] artery | LAURA on CPAP | Hypertension, benign | Hyperlipemia | BPH with urinary obstruction | CKD ( chronic kidney disease) stage 3, GFR 30-59 ml/min | Chronic obstructive pulmo... Diagnosis: Chronic obstructive pulmonary disease (COPD) Comment: Ordered: Office Visit Level 4 Est 23152; 11/26/16 7:10:00 HEADLINE WRITER, Diabetes mellitus type 2, uncontrolled | CAD in [place] artery | LAURA on CPAP | Hypertension, benign | Hyperlipemia | BPH with urinary obstruction | CKD ( chronic kidney disease) stage 3, GFR 30-59 ml/min | Chronic obstructive pulmo... Diagnosis: Diabetes mellitus type 2, uncontrolled Comment: Ordered: Office Visit Level 4 Est 34504; 11/26/16 7:10:00 HEADLINE WRITER, Diabetes mellitus type 2, uncontrolled | CAD in [place] artery | LAURA on CPAP | Hypertension, benign | Hyperlipemia | BPH with urinary obstruction | CKD ( chronic kidney disease) stage 3, GFR 30-59 ml/min | Chronic obstructive pulmo... Diagnosis: Diabetic nephropathy Comment: Ordered: Office Visit Level 4 Est 78238; 11/26/16 7:10:00 HEADLINE WRITER, Diabetes mellitus type 2, uncontrolled | CAD in [place] artery | LAURA on CPAP | Hypertension, benign | Hyperlipemia | BPH with urinary obstruction | CKD ( chronic kidney disease) stage 3, GFR 30-59 ml/min | Chronic obstructive pulmo... Diagnosis: GERD (gastroesophageal reflux disease) Comment: Ordered: Office Visit Level 4 Est 58243; 11/26/16 7:10:00 HEADLINE WRITER, Diabetes mellitus type 2, uncontrolled | CAD in [place] artery | LAURA on CPAP | Hypertension, benign | Hyperlipemia | BPH with urinary obstruction | CKD ( chronic kidney disease) stage 3, GFR 30-59 ml/min | Chronic obstructive pulmo... Diagnosis: Hyperlipemia Comment: Ordered: Office Visit Level 4 Est 17624; 11/26/16 7:10:00 HEADLINE WRITER, Diabetes mellitus type 2, uncontrolled | CAD in [place] artery | LAURA on CPAP | Hypertension, benign | Hyperlipemia | BPH with urinary obstruction | CKD ( chronic kidney disease) stage 3, GFR 30-59 ml/min | Chronic obstructive pulmo... Diagnosis: Hypertension, benign Comment: Ordered: Office Visit Level 4 Est 06140; 11/26/16 7:10:00 HEADLINE WRITER, Diabetes mellitus type 2, uncontrolled | CAD in [place] artery | LAURA on CPAP | Hypertension, benign | Hyperlipemia | BPH with urinary obstruction | CKD ( chronic kidney disease) stage 3, GFR 30-59 ml/min | Chronic obstructive pulmo... Diagnosis: Hypothyroid Comment: Diagnosis: LAURA on CPAP Comment: Ordered: Office Visit Level 4 Est 95430; 11/26/16 7:10:00 HEADLINE WRITER, Diabetes mellitus type 2, uncontrolled | CAD in [place] artery | LAURA on CPAP | Hypertension, benign | Hyperlipemia | BPH with urinary obstruction | CKD ( chronic kidney disease) stage 3, GFR 30-59 ml/min | Chronic obstructive pulmo... Diagnosis: Diabetes mellitus type 2, uncontrolled Comment: Diagnosis: CKD (chronic kidney disease) stage 3, GFR 30-59 ml/min Comment: Diagnosis: Hypertension, benign Comment: Diagnosis: Hyperlipemia Comment: Diagnosis: Diabetes mellitus type 2, uncontrolled Comment: Diagnosis: CKD (chronic kidney disease) stage 3, GFR 30-59 ml/min Comment: Diagnosis: BPH with urinary obstruction Comment: Diagnosis: Hyperlipemia Comment: Diagnosis: Hypertension, benign Comment: Diagnosis: Anemia of chronic disease Comment: Diagnosis: Diabetes mellitus type 2, uncontrolled Comment: Diagnosis: Diabetes mellitus type 2, uncontrolled Comment: End of Orders ."
--- OUTSIDE RECORDS SUMMARY | 2017-03-15 12:59 | XMS REPORT | Referral Summary ---
Author Author [facility], Family Medicine Organization [facility] Address Unknown Phone Unavailable Care Team Providers Care Forming Department End Finder Name Role Phone Mac Pat Primary Care Physician [phone] Encounter VC Date(s): 08/14/16 - 08/14/16 [facility], [address] [place] [id number] Discharge Disposition: 01-Home or Self Care Attending Physician: Josias Pat MD Admitting Physician: Josias Pat MD Vital Signs Most recent to 1 oldest [Reference Range]: Temperature Tympanic 37 degC [36.6-38.1 degC] (08/14/16 12:45 PM) Peripheral Pulse 70 bpm Rate [60-100 bpm] (08/14/16 12:45 PM) Blood Pressure 124/70 mmHg [90-140/60-90 mmHg] (08/14/16 12:45 PM) Problem List Condition Effective Dates Status Health [...] type 2, uncontrolled(Confirm ed) Need for Active isdqvjjxms-njtjwyq-h ertussis (Tdap) vaccine(Confirmed) Allergies, Adverse Reactions, Alerts Substance Reaction Severity Status aspirin epistaxis Active glimepiride SWELLING Active pioglitazone1 Active 1swelling Medications atorvastatin 40 mg oral tablet See Instructions, TAKE 1 TABLET ONE TIME DAILY AT BEDTIME, # 90 tabs, eRx: [facility], TAKE 1 TABLET ONE TIME DAILY AT BEDTIME Start Date: 08/05/16 Status: Ordered BD Ultra- Fine Silke Pen [place] BD Ultra- Fine Silke Pen [place], See Instructions, dispense 3 mo supply-dx: 250.00, # 3 boxes, 3 Refill(s), Pharmacy: [facility], dispense 3 mo supply- dx: 250.00 Start Date: 07/06/14 Status: Ordered carvedilol 25 mg oral tablet See Instructions, TAKE 1/2 TABLET TWICE DAILY, # 90 tabs, eRx: [facility], TAKE 1/2 TABLET TWICE DAILY Start Date: 06/19/16 Status: Ordered clopidogrel 75 mg oral tablet See Instructions, TAKE 1 TABLET EVERY DAY, # 90 tabs, eRx: [facility], TAKE 1 TABLET EVERY [...] dose, # 180 tabs, 3 Refill(s), Pharmacy: [facility], 1 tabs Oral BID,x90 days,Instr:cancel the 2.5 mg dose Start Date: 05/23/16 Stop Date: 05/18/17 Status: Ordered Flomax 0.4 mg oral capsule See Instructions, TAKE 1 CAPSULE EVERY DAY (PLEASE SCHEDULE A COMPLETE PHYSICAL WITH DR PAT), # 90 caps, 2 Refill(s), eRx: [facility], TAKE 1 CAPSULE EVERY [...] J43.9, # 360 mL, 0 Refill(s), Pharmacy: [id number] Start Date: 08/05/16 Status: Ordered isosorbide mononitrate 20 mg oral tablet See Instructions, TAKE 1 TABLET TWICE DAILY, # 180 tabs, 2 Refill(s), eRx: [facility], TAKE 1 TABLET TWICE DAILY Start Date: 11/07/15 Status: Ordered Januvia 50 mg oral tablet See Instructions, TAKE 1 TABLET EVERY DAY, # 90 tabs, eRx: [facility], TAKE 1 TABLET EVERY DAY Start Date: 07/23/16 Status: Ordered Klor-Con 10 10 mEq, Oral, Daily, Dr. Colmenares, 0 Refill(s) Start Date: 03/17/15 Status: Ordered Levemir FlexTouch 100 units/mL subcutaneous solution See Instructions, INJECT 37 UNITS SUBCUTANEOUSLY ONE TIME A DAY AT BEDTIME, # 45 mL, 1 Refill(s), eRx: [facility], INJECT 37 UNITS SUBCUTANEOUSLY ONE TIME A DAY AT BEDTIME Start Date: 03/01/16 Status: Ordered levothyroxine 50 mcg (0.05 mg) oral tablet See Instructions, TAKE 1 TABLET EVERY DAY, # 90 tabs, eRx: [facility], TAKE 1 TABLET EVERY DAY Start Date: 07/23/16 Status: Ordered lisinopril 2.5 mg oral tablet See Instructions, TAKE 1 TABLET EVERY DAY, # 90 tabs, eRx: [facility], TAKE 1 [...] # 100 tabs, 3 Refill(s), Pharmacy : [facility], 1 tabs SubLingual q5min,PRN:as needed for [...] [08/22/2014] See scanned document 2Result Comment: [08/23/2015] Zoavax 12393 unit Procedures Procedure Date Related Diagnosis Body Site Excision, malignant lesion including margins, 08/14/16 face, ears, eyelids, nose, lips; excised diameter 1.1 to 2.0 cm Colonoscopy 2008 Colonoscopy 2005 for small [place] 1999 catherization x2 anteriograms 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 No follow up information was provided. 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 Orders (Selected) Outpatient Orders Ordered Exc Mal Les Face Ears Nose Lips 1.1-2.0cm 10167: Completed Pathology Surgical Order: . Patient Instructions: 1) Patient advised to keep the incision site clean and dry for at least 2 days. 2) FATMATA and dressing to the site for several days, at least. 3) See for some sutures to be removed in 7 days and as needed. 4) Path is pending..
--- OUTSIDE RECORDS SUMMARY | 2017-03-15 12:59 | XMS REPORT | Referral Summary ---
Author Author [facility], Family Medicine Organization [facility] Address Unknown Phone Unavailable Care Team Providers Care Personalization Specialist Name Role Phone Mac Pat Primary Care Physician [phone] Encounter VC Date(s): 08/01/16 - 08/01/16 [facility], [address] [place] [id number] Discharge Disposition: 01-Home or Self Care Attending Physician: Josias Pat MD Admitting Physician: Josias Pat MD Vital Signs Most recent to 1 oldest [Reference Range]: Temperature Tympanic 36.2 degC [36.6-38.1 degC] *LOW* (08/01/16 10:04 AM) Peripheral Pulse 72 bpm Rate [60-100 bpm] (08/01/16 10:04 AM) Blood Pressure 134/50 mmHg [90-140/60-90 mmHg] (08/01/16 10:04 AM) Problem List Condition Effective Dates Status [...] type 2, uncontrolled(Confirm ed) Need for Active dzvlscnbpp-ylbncdm-a ertussis (Tdap) vaccine(Confirmed) Allergies, Adverse Reactions, Alerts Substance Reaction Severity Status aspirin epistaxis Active glimepiride SWELLING Active pioglitazone1 Active 1swelling Medications atorvastatin 40 mg oral tablet See Instructions, TAKE 1 TABLET ONE TIME DAILY AT BEDTIME, # 90 tabs, eRx: [facility], TAKE 1 TABLET ONE TIME DAILY AT BEDTIME Start Date: 07/30/16 Status: Ordered BD Ultra- Fine Silke Pen [place] BD Ultra- Fine Silke Pen [place], See Instructions, dispense 3 mo supply-dx: 250.00, # 3 boxes, 3 Refill(s), Pharmacy: [facility], dispense 3 mo supply- dx: 250.00 Start Date: 07/06/14 Status: Ordered carvedilol 25 mg oral tablet See Instructions, TAKE 1/2 TABLET TWICE DAILY, # 90 tabs, eRx: [facility], TAKE 1/2 TABLET TWICE DAILY Start Date: 06/19/16 Status: Ordered clopidogrel 75 mg oral tablet See Instructions, TAKE 1 TABLET EVERY DAY, # 90 tabs, eRx: [facility], TAKE 1 TABLET EVERY DAY Start Date: 07/01/16 Status: Ordered donepezil 10 mg oral tablet See Instructions, TAKE 1 TABLET ONE TIME DAILY AT BEDTIME, # 90 tabs, eRx: [facility], TAKE 1 TABLET ONE TIME DAILY AT BEDTIME Start Date: 06/19/16 Status: Ordered Eliquis 5 mg oral tablet 5 mg 1 tabs, Oral, BID, cancel the 2.5 mg dose, # 180 tabs, 3 Refill(s), Pharmacy: [facility], 1 tabs Oral BID,x90 days,Instr:cancel the 2.5 mg dose Start Date: 05/23/16 Stop Date: 05/18/17 Status: Ordered Flomax 0.4 mg oral capsule See Instructions, TAKE 1 CAPSULE EVERY DAY (PLEASE SCHEDULE A COMPLETE PHYSICAL WITH DR PAT), # 90 caps, 2 Refill(s), eRx: [facility], TAKE 1 CAPSULE EVERY [...] evening, # 120 vials, 11 Refill(s), Pharmacy: [id number] Start Date: 07/18/15 Status: Ordered isosorbide mononitrate 20 mg oral tablet See Instructions, TAKE 1 TABLET TWICE DAILY, # 180 tabs, 2 Refill(s), eRx: [facility], TAKE 1 TABLET TWICE DAILY Start Date: 11/07/15 Status: Ordered Januvia 50 mg oral tablet See Instructions, TAKE 1 TABLET EVERY DAY, # 90 tabs, eRx: [facility], TAKE 1 TABLET EVERY DAY Start Date: 07/23/16 Status: Ordered Klor-Con 10 10 mEq, Oral, Daily, Dr. Colmenares, 0 Refill(s) Start Date: 03/17/15 Status: Ordered Levemir FlexTouch 100 units/mL subcutaneous solution See Instructions, INJECT 37 UNITS SUBCUTANEOUSLY ONE TIME A DAY AT BEDTIME, # 45 mL, 1 Refill(s), eRx: [facility], INJECT 37 UNITS SUBCUTANEOUSLY ONE TIME A DAY AT BEDTIME Start Date: 03/01/16 Status: Ordered levothyroxine 50 mcg (0.05 mg) oral tablet See Instructions, TAKE 1 TABLET EVERY DAY, # 90 tabs, eRx: [facility], TAKE 1 TABLET EVERY DAY Start Date: 07/23/16 Status: Ordered lisinopril 2.5 mg oral tablet See Instructions, TAKE 1 TABLET EVERY DAY, # 90 tabs, eRx: [facility], TAKE 1 TABLET EVERY DAY Start Date: 07/30/16 Status: Ordered lutein 20 mg oral tablet 1 tabs, Oral, Daily, # 30 tabs, 0 Refill(s) Start Date: 05/10/14 Status: Ordered memantine 10 mg oral tablet 5 mg 0.5 tabs, Oral, BID, # 90 tabs, 3 Refill(s), Pharmacy: [facility], 0.5 tabs Oral BID,x90 days Start Date: 05/24/15 Stop Date: 05/18/16 Status: Ordered nitroglycerin 0.4 mg sublingual tablet 1 tabs, SubLingual, q5min, as needed for chest pain, not to exceed 3 doses/15 min--if pain persists, seek medical attention, # 100 tabs, 3 Refill(s), [facility], 1 tabs SubLingual q5min,PRN:as needed for [...] wheezing, # 3 Each, 3 Refill(s), Pharmacy: [facility], Discontinue Xopenex, 1 puffs Inhalation [...] zoster vaccine live2 08/23/15 zoster vaccine live 3/16/09 1Result Comment: [08/22/2014] See scanned document 2Result Comment: [08/23/2015] Zostavax 02617 unit Procedures Procedure Date Related Diagnosis Body Site Colonoscopy 2008 Colonoscopy 2006 for small CO 1999 catherization x2 anteriograms 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 After surgery, the incision needs to be cared for properly to prevent infection. HOW TO CARE FOR YOUR INCISION Take medicines only as directed by your health care provider. There are many different ways to close and cover an incision, including stitches, skin glue, and adhesive strips. Follow your health care provider's instructions on: Incision care. Bandage (dressing) changes and removal. Incision closure removal. Do not take baths, swim, or use a hot tub until your health care provider approves. You may shower as directed by your health care provider. Resume your normal diet and activities as directed. Use anti-itch medicine (such as an antihistamine) as directed by your health care provider. The incision may itch while it is healing. Do not pick or scratch at the incision. Drink enough fluid to keep your urine clear or pale yellow. SEEK MEDICAL CARE IF: You have drainage, redness, swelling, or pain at your incision site. You have muscle aches, chills, or a general ill feeling. You notice a bad smell coming from the incision or dressing. Your incision edges separate after the sutures, adi, or skin adhesive strips have been removed. You have persistent nausea or vomiting. You have a fever. You are dizzy. SEEK IMMEDIATE MEDICAL CARE IF: You have a rash. You faint. You have difficulty breathing. MAKE SURE YOU: Understand these instructions. Will watch your condition. Will get help right away if you are not doing well or get worse. This information is not intended to replace advice given to you by your health care provider. Make sure you discuss any questions you have with your health care provider. Document Released: 05/30/2006 Document Revised: 12/01/2015 Document Reviewed: ExitCare Patient Information 2016 [employer] [facility]. No follow up information was provided. Extracted from: Title: suture removal Author: Josias Pat MD Date: 08/01/16 Impression and Plan Diagnosis Visit for suture removal ([id number] Z48.02, Working, Medical). Plan: 1) The running suture and half of the interrupted sutures were removed today without difficulty. This was well tolerated by the patient. 2) Return in 6 days for the remainder of the sutures to be removed, and as needed. 3) No signs of infection were noted today. 4) The patient has received a copy of the pathology report.. Orders Orders (Selected) Outpatient Orders Ordered Postoperative Est 21514: . Dx/Order Association Plan: Diagnosis: Visit for suture removal Comment: Ordered: Postoperative Est [id number]; 08/01/16 10:12:00 CDT, Visit for suture removal End of Orders .
--- OUTSIDE RECORDS SUMMARY | 2017-03-15 13:00 | XMS REPORT | Referral Summary ---
Author Author [facility], Family Medicine Organization [facility] Address Unknown Phone Unavailable Care Team Providers Care Script Manager Name Role Phone Mac Pat Primary Care Physician [phone] Encounter VC Date(s): 03/22/16 - 03/22/16 [facility] [address] [place] [id number] Discharge Disposition: 01-Home or Self Care Attending Physician: Josias Pat MD Admitting Physician: Josias Pat MD Vital Signs Most recent to 1 oldest [Reference Range]: Temperature Tympanic 36.7 degC [36.6-38.1 degC] (03/22/16 3:44 PM) Peripheral Pulse 92 bpm Rate [60-100 bpm] (03/22/16 3:44 PM) Blood Pressure 134/56 mmHg [90-140/60-90 mmHg] (03/22/16 3:44 PM) SpO2 97 % (03/22/16 3:44 PM) Problem List Condition Effective Dates Status [...] type 2, uncontrolled(Confirm ed) Need for Active fimdsylgrx-jrkinlc-b ertussis (Tdap) vaccine(Confirmed) Allergies, Adverse Reactions, Alerts Substance Reaction Severity Status aspirin epistaxis Active glimepiride SWELLING Active pioglitazone1 Active 1swelling Medications atorvastatin 40 mg oral tablet See Instructions, TAKE 1 TABLET ONE TIME DAILY AT BEDTIME, # 90 tabs, 2 Refill(s ), eRx: [facility], TAKE 1 TABLET ONE TIME DAILY AT BEDTIME Start Date: 11/07/15 Status: Ordered azithromycin 250 mg oral tablet See Instructions, Take 2 tabs today, then 1 tab daily for 4 days., # 6 tabs, 0 Refill(s), Pharmacy: [id number], Take 2 tabs today, then 1 tab daily for 4 days. Start Date: 03/22/16 Stop Date: 03/27/16 Status: Ordered BD Ultra- Fine Silke Pen [place] BD Ultra- Fine [place] Pen [place], See Instructions, dispense 3 mo supply-dx: 250.00, # 3 boxes, 3 Refill(s), Pharmacy: [facility], dispense 3 mo supply- dx: 250.00 Start Date: 07/06/14 Status: Ordered carvedilol 25 mg oral tablet See Instructions, TAKE 1/2 TABLET TWICE DAILY, # 90 tabs, 2 Refill(s), eRx: [facility], TAKE 1/2 TABLET TWICE [...] PAT), # 90 caps, 2 Refill(s), eRx: [facility], TAKE 1 CAPSULE EVERY [...] evening, # 120 vials, 11 Refill(s), Pharmacy: [id number] Start Date: 07/18/15 Status: Ordered isosorbide mononitrate 20 mg oral tablet See Instructions, TAKE 1 TABLET TWICE DAILY, # 180 tabs, 2 Refill(s), eRx: [facility], TAKE 1 TABLET TWICE DAILY Start Date: 11/07/15 Status: Ordered Januvia 50 mg oral tablet See Instructions, TAKE 1 TABLET EVERY DAY, # 90 tabs, 3 Refill(s), eRx: [facility], TAKE 1 TABLET EVERY DAY Start Date: 07/17/15 Status: Ordered Klor-Con 10 10 mEq, Oral, Daily, Dr. Colmenares, 0 Refill(s) Start Date: 03/17/15 Status: Ordered Levemir FlexTouch 100 units/mL subcutaneous solution See Instructions, INJECT 37 UNITS SUBCUTANEOUSLY ONE TIME A DAY AT BEDTIME, # 45 mL, 1 Refill(s), eRx: [facility], INJECT 37 UNITS SUBCUTANEOUSLY ONE TIME A DAY AT BEDTIME Start Date: 03/01/16 Status: Ordered levothyroxine 50 mcg (0.05 mg) oral tablet See Instructions, TAKE 1 TABLET EVERY DAY, # 90 tabs, 2 Refill(s), eRx: [facility], TAKE 1 TABLET EVERY DAY Start Date: 11/07/15 Status: Ordered lisinopril 2.5 mg oral tablet 2.5 mg 1 tabs, Oral, Daily, # 90 tabs, 3 Refill(s), Pharmacy: [facility] Start Date: 08/21/15 Status: Ordered lutein 20 mg oral tablet 1 tabs, Oral, Daily, # 30 tabs, 0 Refill(s) Start Date: 05/10/14 Status: Ordered memantine 10 mg oral tablet 5 mg 0.5 tabs, Oral, BID, # 90 tabs, 3 Refill(s), [facility]acy: [facility], 0.5 tabs Oral BID,x90 days Start Date: 05/24/15 Stop Date: 05/18/16 Status: Ordered nitroglycerin 0.4 mg sublingual tablet 1 tabs, SubLingual, q5min, as needed for chest pain, not to exceed 3 doses/15 min--if pain persists, seek medical attention, # 100 tabs, 3 Refill(s), [facility] : [facility], 1 tabs SubLingual q5min,PRN:as needed for chest pain,Instr: not to exceed 3... Start Date: 10/24/14 Status: Ordered pantoprazole 40 mg oral delayed release tablet See Instructions, TAKE 1 TABLET EVERY DAY, # 90 tabs, 3 Refill(s), eRx: [facility], TAKE 1 TABLET EVERY DAY Start Date: 07/17/15 Status: Ordered Plavix 75 mg oral tablet See Instructions, TAKE 1 TABLET EVERY DAY, # 90 tabs, 3 Refill(s), eRx: [facility], TAKE 1 TABLET EVERY DAY Start Date: 07/17/15 Status: Ordered predniSONE 20 mg oral tablet See Instructions, Take 2 daily for 3 days, then 1 daily for 5 days., # 11 tabs, 0 Refill(s), Pharmacy: [id number], Take 2 daily for 3 days, then 1 daily for 5 days. Start Date: 03/22/16 Stop Date: 03/30/16 Status: Ordered Ventolin HFA 90 mcg/inh inhalation aerosol 1 puffs, Inhalation, QID, as needed for wheezing, # 3 Each, 3 Refill(s), Pharmacy: [facility], Discontinue Xopenex, 1 puffs Inhalation QID,PRN:as needed for wheezing Start Date: 05/17/15 Status: Ordered Vitamin B12 2,500 mcg, Oral, Daily, 0 Refill(s) Start Date: 05/10/14 Status: Ordered Results Hematology Most recent to 1 oldest [Reference Range]: WBC [5.0-10.0 7.6 10*3/uL 10*3/uL] (03/22/16 4:16 PM) RBC [3.70-5.20] 4.14 (03/22/16 4:16 PM) Hgb [12.0-16.0 11.9 gm/dL gm/dL] *LOW* (03/22/16 4:16 PM) Hct [40.0-54.0 %] 36.0 % *LOW* (03/22/16 4:16 PM) MCV [80.0-96.0 fL] 87.0 fL (03/22/16 4:16 PM) MCH [26.0-34.0 pg] 28.7 pg (03/22/16 4:16 PM) MCHC [32.0-36.0 33.1 gm/dL gm/dL] (03/22/16 4:16 PM) RDW [0.0-14.5 %] 14.4 % (03/22/16 4:16 PM) Platelet [150-400 225 10*3/uL 10*3/uL] (03/22/16 4:16 PM) MPV [8.8-14.8 fL] 9.7 fL (03/22/16 4:16 PM) Neutrophils [50-70 56 % %] (03/22/16 4:16 PM) Lymphocytes [20-40 21 % %] (03/22/16 4:16 PM) Monocytes [4-8 %] 15 % *HI* (03/22/16 4:16 PM) Eosinophils [0-6 %] 8 % *HI* (03/22/16 4:16 PM) Basophils [0-2 %] 1 % (03/22/16 4:16 PM) Neutro Absolute 4.23 10*3 [2.50-7.00 10*3] (03/22/16 4:16 PM) Lymph Absolute 1.62 10*3 [1.00-4.00 10*3] (03/22/16 4:16 PM) Bollinger Absolute 1.14 10*3 [0.20-0.80 10*3] *HI* (03/22/16 4:16 PM) Eos Absolute 0.57 10*3 [0.00-0.60 10*3] (03/22/16 4:16 PM) Baso Absolute 0.04 [0.00-0.30] (03/22/16 4:16 PM) Immunizations Vaccine Date Refusal Reason tetanus/diphth/pertuss (Tdap) [...] See scanned document 2Result Comment: [08/23/2015] Zostavax 26724 unit Procedures Procedure Date Related Diagnosis Body Site Colonoscopy 2008 Colonoscopy 2005 for small CA 1999 catherization x2 anteriograms 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 It may be caused by a germ (virus or bacteria). Some types of pneumonia can spread easily from person to person. This can happen when you cough or sneeze. HOME CARE Only take medicine as told by your doctor. Take your medicine (antibiotics) as told. Finish it even if you start to feel better. Do not smoke. You may use a vaporizer or humidifier in your room. This can help loosen thick spit (mucus). Sleep so you are almost sitting up (semi-upright). This helps reduce coughing. Rest. A shot (vaccine) can help prevent pneumonia. Shots are often advised for: People over 65 years old. Patients on chemotherapy. People with long-term (chronic) lung problems. People with immune system problems. GET HELP RIGHT AWAY IF: You are getting worse. You cannot control your cough, and you are losing sleep. You cough up blood. Your pain gets worse, even with medicine. You have a fever. Any of your problems are getting worse, not better. You have shortness of breath or chest pain. MAKE SURE YOU: Understand these instructions. Will watch your condition. Will get help right away if you are not doing well or get worse. This information is not intended to replace advice given to you by your health care provider. Make sure you discuss any questions you have with your health care provider. Document Released: 04/28/2009 Document Revised: 02/01/2013 Document Reviewed: [facility] Patient Information 2015 [employer] No follow up information was provided. Extracted from: Title: pneumonia, COPD Author: Josias Pat MD Date: 03/22/16 exacerbation, DM, CAD, HTN Impression and Plan Diagnosis Diabetes Type 2, uncontrolled (NZK43-UU E11.9, Working, Medical). CKD (chronic kidney disease) stage 3, GFR 30-59 ml/min (PPW90-PV N18.3, Working , Medical). Alzheimer disease (YXV86-DT G30.9, Working, Medical). Hypertension, benign (HSM94-MN I10, Working, Medical). CAD (coronary artery disease) (JHI35-KO I25.10, Working, Medical). Chronic obstructive pulmonary disease (COPD) (QOH66-OK J44.9, Working, Medical). COPD exacerbation (JPP11-GK J44.1, Working, Medical). Pneumonia (DHQ22-VZ J18.9, Working, Medical). Plan: 1) Rocephin 1 gm IM given in the office today. 2) Take the Azithromycin and Prednisone as directed. 3) Rest at home. 4) May continue your routine meds otherwise. 5) See me back in the office for a recheck in 7-10 days and as needed. 6) Go to the ER if you worsen. . Orders Orders (Selected) Outpatient Orders Ordered Office Visit Level 5 Est 22432: Ordered (Exam Completed) XR Chest 2 Views: Completed CBC w/ Differential: cefTRIAXone: 1 g, IntraMuscular, Once Prescriptions Prescribed azithromycin 250 mg oral tablet: See Instructions, Take 2 tabs today, then 1 tab daily for 4 days., 6 tabs, 0 Refill(s) predniSONE 20 mg oral tablet: See Instructions, Take 2 daily for 3 days, then 1 daily for 5 days., 11 tabs, 0 Refill(s). Dx/Order Association Plan: Diagnosis: Alzheimer disease Comment: Diagnosis: CAD (coronary artery disease) Comment: Diagnosis: CKD (chronic kidney disease) stage 3, GFR 30-59 ml/min Comment: Ordered: Office Visit Level 5 Est [id number]; 03/22/16 16:26:00 CDT, Pneumonia | COPD exacerbation | Hypertension, benign | Diabetes Type 2, uncontrolled | CKD (chronic kidney disease) stage 3, GFR 30-59 ml/min Diagnosis: COPD exacerbation Comment: Ordered: Office Visit Level 5 Est 72021; 03/22/16 16:26:00 CDT, Pneumonia | COPD exacerbation | Hypertension, benign | Diabetes Type 2, uncontrolled | CKD (chronic kidney disease) stage 3, GFR 30-59 ml/min Other status: XR Chest 2 Views; 03/22/16 16:04:00 CDT, Routine, Stop date 03/22/16 16:04:00 CDT, Reason: Cough, Acute bronchitis | COPD exacerbation, ABN Status: Not Required (Status Change) Diagnosis: Chronic obstructive pulmonary disease (COPD) Comment: Diagnosis: Diabetes Type 2, uncontrolled Comment: Ordered: Office Visit Level 5 Est 02237; 03/22/16 16:26:00 CDT, Pneumonia | COPD exacerbation | Hypertension, benign | Diabetes Type 2, uncontrolled | CKD (chronic kidney disease) stage 3, GFR 30-59 ml/min Diagnosis: Hypertension, benign Comment: Ordered: Office Visit Level 5 Est 12859; 03/22/16 16:26:00 CDT, Pneumonia | COPD exacerbation | Hypertension, benign | Diabetes Type 2, uncontrolled | CKD (chronic kidney disease) stage 3, GFR 30-59 ml/min Other status: CBC w/ Differential; Blood, Stat Collect, 03/22/16 16:04:00 CDT, Once, Stop date 03/22/16 16:04:00 CDT, Lab Collect, Acute bronchitis | Hypertension, benign (Completed) Diagnosis: Pneumonia Comment: Ordered: Office Visit Level 5 Est 53663; 03/22/16 16:26:00 CDT, Pneumonia | COPD exacerbation | Hypertension, benign | Diabetes Type 2, uncontrolled | CKD (chronic kidney disease) stage 3, GFR 30-59 ml/min Other status: cefTRIAXone; 1 g, IntraMuscular, Once, First Dose: 03/22/16 17:00:00 CDT, Stop Date: 03/22/16 17:00:00 CDT (Completed) Additional Orders: Comment: Ordered: azithromycin 250 mg oral tablet,See Instructions, Take 2 tabs today, then 1 tab daily for 4 days., # 6 tabs, 0 Refill(s), Pharmacy: [id number], Take 2 tabs today, then 1 tab daily for 4 days. Ordered: predniSONE 20 mg oral tablet,See Instructions, Take 2 daily for 3 days, then 1 daily for 5 days., # 11 tabs, 0 Refill(s), Pharmacy: [id number], Take 2 daily for 3 days, then 1 daily for 5 days. End of Orders ."
--- OUTSIDE RECORDS SUMMARY | 2017-03-15 13:00 | XMS REPORT | Referral Summary ---
Author Author [facility] Organization [facility] Address Unknown Phone Unavailable Care Team Providers Care Book Mender Name Role Phone Mac Pat Primary Care Physician [phone] Encounter VC Date(s): 08/21/16 - 08/21/16 [facility] [address] [place] [id number] Discharge Diagnosis: Visit for suture removal Discharge Disposition: 01-Home or Self Care Attending Physician: Josias Pat MD Admitting Physician: Josias Pat MD Vital Signs Most recent to 1 oldest [Reference Range]: Temperature Tympanic 35.9 degC [36.6-38.1 degC] *LOW* (08/21/16 8:58 AM) Peripheral Pulse 80 bpm Rate [60-100 bpm] (08/21/16 8:58 AM) Blood Pressure 146/58 mmHg [90-140/60-90 mmHg] *HI* (08/21/16 8:58 AM) Problem List Condition Effective Dates Status [...] type 2, uncontrolled(Confirm ed) Need for Active nbypclsdxq-ntbnkpq-g ertussis (Tdap) vaccine(Confirmed) Allergies, Adverse Reactions, Alerts Substance Reaction Severity Status aspirin epistaxis Active glimepiride SWELLING Active pioglitazone1 Active 1swelling Medications atorvastatin 40 mg oral tablet See Instructions, TAKE 1 TABLET ONE TIME DAILY AT BEDTIME, # 90 tabs, eRx: [facility], TAKE 1 TABLET ONE TIME DAILY AT BEDTIME Start Date: 08/05/16 Status: Ordered BD Ultra- Fine Silke Pen [place] BD Ultra- Fine Sil[place], See Instructions, dispense 3 mo supply-dx: 250.00, # 3 boxes, 3 Refill(s), Pharmacy: [facility] , dispense 3 mo supply- dx: 250.00 Start Date: 07/06/14 Status: Ordered carvedilol 25 mg oral tablet See Instructions, TAKE 1/2 TABLET TWICE DAILY, # 90 tabs, eRx: [facility], TAKE 1/2 TABLET TWICE DAILY Start Date: 06/19/16 Status: Ordered clopidogrel 75 mg oral tablet See Instructions, TAKE 1 TABLET EVERY DAY, # 90 tabs, eRx: [facility], TAKE 1 TABLET EVERY DAY Start Date: 07/01/16 Status: Ordered donepezil 10 mg oral tablet See Instructions, TAKE 1 TABLET ONE TIME DAILY AT BEDTIME, # 90 tabs, eRx: [facility], TAKE 1 TABLET ONE TIME DAILY AT BEDTIME Start Date: 06/19/16 Status: Ordered Eliquis 5 mg oral tablet 5 mg 1 tabs, Oral, BID, cancel the 2.5 mg dose, # 180 tabs, 3 Refill(s), Pharmacy: [facility], 1 tabs Oral BID,x90 days,Instr:cancel the 2.5 mg dose Start Date: 05/23/16 Stop Date: 05/18/17 Status: Ordered Flomax 0.4 mg oral capsule See Instructions, TAKE 1 CAPSULE EVERY DAY (PLEASE SCHEDULE A COMPLETE PHYSICAL WITH DR PAT), # 90 caps, 2 Refill(s), eRx: [facility], TAKE 1 CAPSULE [...] J43.9, # 360 mL, 0 Refill(s), Pharmacy: [id number] Start Date: 08/05/16 Status: Ordered isosorbide mononitrate 20 mg oral tablet See Instructions, TAKE 1 TABLET TWICE DAILY, # 180 tabs, eRx: [facility], TAKE 1 TABLET TWICE DAILY Start Date: 08/15/16 Status: Ordered Januvia 50 mg oral tablet See Instructions, TAKE 1 TABLET EVERY DAY, # 90 tabs, eRx: [facility], TAKE 1 TABLET EVERY DAY Start Date: 07/23/16 Status: Ordered Klor-Con 10 10 mEq, Oral, Daily, Dr. Colmenares, 0 Refill(s) Start Date: 03/17/15 Status: Ordered Levemir FlexTouch 100 units/mL subcutaneous solution See Instructions, INJECT 37 UNITS SUBCUTANEOUSLY ONE TIME A DAY AT BEDTIME, # 45 mL, eRx: [facility], INJECT 37 UNITS SUBCUTANEOUSLY ONE TIME A DAY AT BEDTIME Start Date: 08/15/16 Status: Ordered levothyroxine 50 mcg (0.05 mg) oral tablet See Instructions, TAKE 1 TABLET EVERY DAY, # 90 tabs, eRx: [facility], TAKE 1 TABLET EVERY DAY Start Date: 07/23/16 Status: Ordered lisinopril 2.5 mg oral tablet See Instructions, TAKE 1 TABLET EVERY DAY, # 90 tabs, eRx: [facility], TAKE 1 TABLET EVERY [...] # 100 tabs, 3 Refill(s), Pharmacy : [facility], 1 tabs SubLingual q5min,PRN:as needed for [...] See scanned document 2Result Comment: [08/23/2015] Zoavax 65819 unit Procedures Procedure Date Related Diagnosis Body [...] Josias Pat MD Date: 08/21 Family Medicine Suture Removal, Care After Refer to this sheet in the next few weeks. These instructions provide you with information on caring for yourself after your procedure. Your health care provider may also give you more specific instructions. Your treatment has been planned according to current medical practices, but problems sometimes occur. Call your health care provider if you have any problems or questions after your procedure. WHAT TO EXPECT AFTER THE PROCEDURE After your stitches (sutures) are removed, it is typical to have the following: Some discomfort and swelling in the wound area. Slight redness in the area. HOME CARE INSTRUCTIONS If you have skin adhesive strips over the wound area, do not take the strips off. They will fall off on their own in a few days. If the strips remain in place after 14 days, you may remove them. Change any bandages (dressings) at least once a day or as directed by your health care provider. If the bandage sticks, soak it off with warm, soapy water. Apply cream or ointment only as directed by your health care provider. If using cream or ointment, wash the area with soap and water 2 times a day to remove all the cream or ointment. Rinse off the soap and pat the area dry with a clean towel. Keep the wound area dry and clean. If the bandage becomes wet or dirty, or if it develops a bad smell, change it as soon as possible. Continue to protect the wound from injury. Use sunscreen when out in the sun. New scars become sunburned easily. SEEK MEDICAL CARE IF: You have increasing redness, swelling, or pain in the wound. You see pus coming from the wound. You have a fever. You notice a bad smell coming from the wound or dressing. Your wound breaks open (edges not staying together). This information is not intended to replace advice given to you by your health care provider. Make sure you discuss any questions you have with your health care provider. Document Released: 08/05/2002 Document Revised: 08/31/2014 Document Reviewed: [employer] Patient Information 2016 [employer]. No follow up information was provided. Extracted from: Title: suture removal Author: Josias Pat MD Date: 08/21/16 Impression and Plan Diagnosis Visit for suture removal ([id number] Z48.02, Discharge, Medical). Plan: 1) Most of the sutures were easily removed. 2) Several interrupted sutures were left in place. 3) return in 5-6 days for the rest to be removed. 4) Patient understands that the pathology report showed a skin cancer.. Orders Orders (Selected) Outpatient Orders Ordered Postoperative Est [id number]: . Dx/Order Association Plan: Diagnosis: Visit for suture removal Comment: Ordered: Postoperative Est [id number]; 08/21/16 13:09:00 CDT, Visit for suture removal End of Orders .
--- OUTSIDE RECORDS SUMMARY | 2017-03-15 13:00 | XMS REPORT | Referral Summary ---
Author Author [facility] Organization [facility] Address Unknown Phone Unavailable Care Team Providers Care Adapted Physical Education Specialist Name Role Phone Mac Reveles Primary Care Physician [phone] Encounter VC Date(s): 08/21/15 - 08/21/15 [facility] [address] [place] [id number] Discharge Disposition: 01-Home or Self Care Attending Physician: Josias Reveles MD Admitting Physician: Josias Reveles MD Vital Signs Most recent to 1 [...] type 2, uncontrolled(Confirm ed) Need for Active pceqixaraq-dxaldjw-m ertussis (Tdap) vaccine(Confirmed) Allergies, Adverse Reactions, Alerts Substance Reaction Severity Status aspirin epistaxis Active glimepiride SWELLING Active pioglitazone1 Active 1swelling Medications atorvastatin 40 mg oral tablet 40 mg 1 tabs, Oral, Bedtime (once a day), # 90 tabs, 0 Refill(s), Pharmacy: [facility], Instruct patient to schedule a complete physical with Dr. reveles, 1 tabs Oral Bedtime (once a day) Start Date: 04/24/15 Status: Ordered BD Ultra- Fine Silke Pen [place] BD Ultra- Fine Sil[place], See Instructions, dispense 3 mo supply-dx: 250.00, # 3 boxes, 3 Refill(s), Pharmacy: [facility], dispense 3 mo supply- dx: 250.00 Start Date: 07/06/14 Status: Ordered carvedilol 25 mg oral tablet 0.5 tabs, Oral, BID, # 90 tabs, 3 Refill(s), Pharmacy: [facility], 0.5 tabs Oral BID Start Date: 07/06/14 Status: Ordered donepezil 10 mg oral tablet See Instructions, TAKE 1 TABLET ONE TIME DAILY AT BEDTIME, # 90 tabs, 3 Refill(s ), eRx: [facility], TAKE 1 TABLET ONE TIME DAILY AT BEDTIME Start Date: 07/25/15 Status: Ordered Flomax 0.4 mg oral capsule See Instructions, TAKE 1 CAPSULE EVERY DAY. PLEASE SCHEDULE A COMPLETE PHYSICAL WITH DR REVELES, # 90 caps, eRx: [facility], TAKE 1 CAPSULE EVERY DAY. PLEASE SCHEDULE A COMPLETE PHYSICAL WITH DR REVELES Start Date: 07/17/15 Status: Ordered furosemide 20 mg oral tablet 1 tabs, Oral, Daily, Dr. Colmenares, 0 Refill(s) Start Date: 03/17/15 Status: Ordered ipratropium-albuterol 0.5 mg-2.5 mg/3 mLinhalation solution 3 mL, Inhalation, QID, DX: COPD-496., # 120 vials, 11 Refill(s), Pharmacy: [facility] [id number] Start Date: 07/18/15 Status: Ordered isosorbide mononitrate 20 mg oral tablet See Instructions, TAKE 1 TABLET TWICE DAILY, # 180 tabs, 1 Refill(s), eRx: [facility], TAKE 1 TABLET TWICE DAILY Start Date: 07/03/15 Status: Ordered Januvia 50 mg oral tablet See Instructions, TAKE 1 TABLET EVERY DAY, # 90 tabs, 3 Refill(s), eRx: [facility], TAKE 1 TABLET EVERY DAY Start Date: 07/17/15 Status: Ordered Klor-Con 10 10 mEq, Oral, Daily, Dr. Colmenares, 0 Refill(s) Start Date: 03/17/15 Status: Ordered Levemir FlexTouch 100 units/mL subcutaneous solution See Instructions, INJECT 37 UNITS SUBCUTANEOUSLY ONE TIME A DAY AT BEDTIME, # 30 mL, 1 Refill(s), eRx: [facility], INJECT 37 UNITS SUBCUTANEOUSLY ONE TIME A DAY AT BEDTIME Start Date: 08/07/15 Status: Ordered levothyroxine 50 mcg (0.05 mg) oral tablet 1 tabs, Oral, Daily, # 90 tabs, 3 Refill(s), Pharmacy: [facility], 1 tabs Oral Daily,x90 days Start Date: 07/06/14 Stop Date: 07/01/15 Status: Ordered lisinopril 2.5 mg oral tablet 2.5 mg 1 tabs, Oral, Daily, # 90 tabs, 3 Refill(s), Pharmacy: [facility] Start Date: 08/21/15 Status: Ordered lutein 20 mg oral tablet 1 tabs, Oral, Daily, # 30 tabs, 0 Refill(s) Start Date: 05/10/14 Status: Ordered memantine 10 mg oral tablet 5 mg 0.5 tabs, Oral, BID, # 90 tabs, 3 Refill(s), Pharmacy: [facility], 0.5 tabs Oral BID,x90 days Start Date: 05/24/15 Stop Date: 05/18/16 Status: Ordered nitroglycerin 0.4 mg sublingual tablet 1 tabs, SubLingual, q5min, as needed for chest pain, not to exceed 3 doses/15 min--if pain persists, seek medical attention, # 100 tabs, 3 Refill(s), Pharmacy : [facility], 1 tabs SubLingual q5min,PRN:as needed for chest pain,Instr: not to exceed 3... Start Date: 10/24/14 Status: Ordered pantoprazole 40 mg oral delayed release tablet See Instructions, TAKE 1 TABLET EVERY DAY, # 90 tabs, 3 Refill(s), eRx: [facility], TAKE 1 TABLET EVERY DAY Start Date: 07/17/15 Status: Ordered Plavix 75 mg oral tablet See Instructions, TAKE 1 TABLET EVERY DAY, # 90 tabs, 3 Refill(s), eRx: [facility], TAKE 1 TABLET EVERY DAY Start Date: 07/17/15 Status: Ordered Spiriva 18 mcg inhalation capsule See Instructions, INHALE THE CONTENTS OF ONE CAPSULE IN 2 INHALATIONS DAILY NEEDED FOR DIFFICULTY IN BREATHING, # 90 caps, 1 Refill(s), eRx: [facility], INHALE THE CONTENTS OF [...] tetanus/diphth/pertuss (Tdap) adult/adol 08/21/15 influenza virus vaccine, inactivated1 08/22/14 influenza virus vaccine, live 08/03/13 influenza virus vaccine, live 09/01/12 pneumococcal 13-valent conjugate vaccine 09/13/14 pneumococcal 23-polyvalent vaccine 10/19/01 tetanus-diphth toxoids (Td) adult/adol 06/09/10 tetanus-diphth toxoids (Td) adult/adol 10/19/01 tetanus-diphth toxoids (Td) adult/adol 10/07/96 zoster vaccine live 02/06/09 1Result Comment: [08/22/2014] See scanned document Procedures Procedure Date Related Diagnosis Body Site Colonoscopy 2008 Colonoscopy 2006 for small NH 2000 catherization x2 anteriograms 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 This information is not intended to replace [...] Released: 11/29/2008 Document Revised: 07/13/2014 Document Reviewed: [facility] Patient Information 2015 [employer] [facility]. This information is not intended to replace [...] Released: 11/10/2006 Document Revised: 03/27/2015 Document Reviewed: [facility]. This information is not intended to replace advice given to you by your health care provider. Make sure you discuss any questions you have with your health care provider. No follow up information was provided. Extracted from: Title: Male physical Author: Josias Reveles MD Date: 08/21/15 Impression and Plan Diagnosis [...] Hypercholesterolemia (ICD9 272.0, Working, Medical). Need for mcdhlpxqjv-xtgxhvm-yruygdafs (Tdap) vaccine (ICD9 V06.1, Working, Medical). LAURA [...] IntraMuscular, Once Office Visit Level 5 Est 03950: Future (On Hold) Albumin/Creatinine Ratio, Urine: Hgb A1c: Lipid Panel: TSH 3rd Generation: Prescriptions Prescribed lisinopril 2.5 mg oral tablet: 2.5 mg=1 tabs, Oral, Daily, 90 tabs, 3 Refill(s). Dx/Order Association Plan: Diagnosis: Alzheimer disease Comment: Diagnosis: BPH with urinary obstruction Comment: Ordered: Office Visit Level 5 Est 82863; 08/21/15 10:05:00 CDT, Diabetes Type 2, uncontrolled | Coronary disease | Hypercholesterolemia | Benign essential hypertension | BPH with urinary obstruction Diagnosis: Benign essential hypertension Comment: Ordered: Office Visit Level 5 Est 51710; 08/21/15 10:05:00 CDT, Diabetes Type 2, uncontrolled | Coronary disease | Hypercholesterolemia | Benign essential hypertension | BPH with urinary obstruction Diagnosis: CKD (chronic kidney disease) stage 3, GFR 30-59 ml/min Comment: Diagnosis: Chronic obstructive pulmonary disease (COPD) Comment: Diagnosis: Coronary disease Comment: Ordered: Office Visit Level 5 Est [id number]; 08/21/15 10:05:00 CDT, Diabetes Type 2, uncontrolled | Coronary disease | Hypercholesterolemia | Benign essential hypertension | BPH with urinary obstruction Diagnosis: Diabetes Type 2, uncontrolled Comment: Ordered: Office Visit Level 5 Est 53681; 08/21/15 10:05:00 CDT, Diabetes Type 2, uncontrolled | Coronary disease | Hypercholesterolemia | Benign essential hypertension | 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 Comment: Diagnosis: Edema Comment: Diagnosis: Hypercholesterolemia Comment: Ordered: Office Visit Level 5 Est 51483; 08/21/15 10:05:00 CDT, Diabetes Type 2, uncontrolled | Coronary disease | Hypercholesterolemia | Benign essential hypertension | BPH with urinary obstruction Diagnosis: Need for bjoyixdoip-wcaxfte-phpnfzvke (Tdap) vaccine Comment: Ordered: Boostrix (Tdap); 0.5 mL, IntraMuscular, Once, First Dose : 08/21/15 11:00:00 CDT, Stop Date: 08/21/15 11:00:00 CDT Diagnosis: LAURA on CPAP Comment: Diagnosis: Hypercholesterolemia Comment: Diagnosis: Diabetes Type 2, uncontrolled Comment: Diagnosis: Diabetic nephropathy Comment: Diagnosis: Adult hypothyroidism Comment: Additional Orders: Comment: Ordered: lisinopril 2.5 mg oral tablet,2.5 mg 1 tabs, Oral, Daily, # 90 tabs, 3 Refill(s), Pharmacy: [facility] End of Orders ."
--- OUTSIDE RECORDS SUMMARY | 2017-03-15 13:00 | XMS REPORT | Continuity of Care Document ---
Author Author Ana ROSS, [facility] Address [address] [place] [address] Phone Care Team Providers Care Extension Service Specialist In Charge Name Role Phone AdiliaJosias PP Unavailable Payers Payer name Insurance type Covered republican ID Authorization(s) Unknown Problems Condition Effective Dates (start - stop) Clinical Status CAD (coronary artery disease) - *Chronic Diabetes type 2, uncontrolled - *Chronic Hypercholesterolemia - *Chronic BPH with urinary obstruction - *Chronic LAURA on CPAP - *Chronic Hypothyroid - *Controlled Pernicious anemia - *Chronic Alzheimer's dementia - *Chronic Bronchitis, acute - Acute Diabetes, type 2, unspec - *Chronic CAD (coronary artery disease) - Asymptomatic Diabetes Mellitus Type 2, Uncomplicated - *Chronic Hypertension, Benign - *Chronic Alzheimer disease - *Chronic Venous stasis dermatitis - *Acute CAD (coronary artery disease) - *Controlled Hypertension - *Chronic Diabetes type 2, controlled - *Chronic Hyperlipidemia - *Chronic CAD, Unspecified - *Chronic Diabetes, type 2, unspec - *Chronic Hypertension, benign - *Chronic Hyperlipidemia, NOS - *Chronic Alzheimer's dementia - *Stable Keratosis, seborrheic - *Chronic Diabetes Mellitus Type 2, Uncomplicated - *Chronic CAD (coronary artery disease) - *Chronic Hypertension - *Controlled Diabetes type 2, uncontrolled - *Chronic Alzheimer disease - *Stable Hyperlipidemia - *Controlled Anemia - *Chronic Issue of repeat prescriptions - *Chronic Diabetes Mellitus, Adult Onset, Uncontrolled - *Poor control Other and unspecified hyperlipidemia - *Controlled Diabetes type 2, uncontrolled - *Chronic CAD (coronary artery disease) - *Controlled Hypercholesterolemia - *Chronic CKD (chronic kidney disease) stage 3, GFR 30-59 ml - *Chronic Alzheimer disease - *Stable Hypertension, Benign - *Controlled Diabetes Mellitus, Adult Onset, Uncontrolled - *Fair Control BPH with obstruction/lower urinary tract symptoms - *Chronic Diabetic polyneuropathy - *Chronic LAURA on CPAP - *Chronic Anemia - *Chronic CAD (coronary artery disease) - Asymptomatic Diabetes type 2, controlled - *Chronic Hypertension - *Chronic Hypercholesterolemia - *Chronic Diabetes Mellitus Type 2, Uncomplicated - *Poor control Diabetes Mellitus Type 2, Uncomplicated - *Fair Control Other and unspecified hyperlipidemia - *Controlled Diabetes, type 2, uncontrolled - *Chronic CAD (coronary artery disease) - *Chronic Hypercholesterolemia - *Chronic Hypertension - *Chronic Alzheimer disease - *Chronic Diabetes Mellitus, Adult Onset, Uncontrolled - *Poor control Diabetes Mellitus, Adult Onset, Uncontrolled - *Fair Control CAD (coronary artery disease) - *Stable Diabetes type 2, uncontrolled - *Chronic Hypercholesterolemia - *Chronic Venous stasis dermatitis - *Controlled CKD (chronic kidney disease), stage III - *Chronic AMI NOS, UNSPECIFIED - BPH W/O URINARY OBS/LUTS - PALPITATIONS - Diabetes Mellitus, Adult Onset, Uncontrolled - *Uncontrolled CAD, Unspecified - *Chronic Diabetes Mellitus Type 2, Uncomplicated - *Poor control Hypertension, Unspecified - *Fair Control Edema - *Chronic Renal insufficiency - *Chronic Vasculitis - *Acute Diabetes Mellitus Type 2, Uncomplicated - *Fair Control Diabetes Mellitus, Adult Onset, Uncontrolled - *Fair Control Diabetes Mellitus, Adult Onset, Uncontrolled - *Poor control Hypertension, Unspecified - *Controlled Diabetes, type 2, unspec - *Chronic Hypertension, benign - *Chronic Dyspnea - *Acute CAD (coronary artery disease) - *Chronic Hypercholesterolemia - *Chronic Hypertension, Benign - *Chronic Alzheimer's dementia - *Chronic Anemia - *Chronic Cellulitis, digit, unspec. - *Acute Diabetes, type 2, uncontrolled - *Chronic Hyperlipidemia, NOS - *Chronic CAD (coronary artery disease) - *Chronic Alzheimer's dementia - *Chronic Dementia in other diseases - *Chronic Hypertension - *Chronic Diabetes Mellitus, Adult Onset, Uncontrolled - *Chronic Hypothyroidism - *Chronic Diabetes type 2, controlled - *Chronic Hyperlipidemia - *Chronic Hypertension - *Chronic Alzheimer disease - *Chronic Abdominal distention - *Chronic Weight loss - *Acute Family History Family Member Diagnosis Age At Onset Status Sister (Unknown) CAD Yes Family h/o (Unknown) Tuberculosis No Mother (Unknown) Hip Fracture Yes Sister (Unknown) Cancer -stomach Yes Father (Unknown) CAD Yes Sister (Unknown) Myocardial infarction Yes Brother (Unknown) murdered Yes Mother (Unknown) Diabetes Yes Father (Unknown) Myocardial Infarction Yes Social History Social History Element Description Quantity Unknown Allergies, Adverse Reactions, Alerts Substance Reaction Severity Status ASPIRIN epistaxis Unknown GLIMEPIRIDE SWELLING Unknown PIOGLITAZONE HCL SWELLING Unknown Medications Medication Instructions Dosage Effective Dates (start - stop) Status Namenda 10 mg tablet Take 1/2 tablet by mouth twice a day. - No Longer Active Levemir Flexpen 100 unit/mL (3 mL) solution subcutaneous insulin pen inject 26 Units by Subcutaneous route every day - No Longer Active nitroglycerin 0.[address] 1 tablet (0.4MG) under tongue if chest pain occurs. May repeat in 5 min. 0.4 MG - Active lutein 20 mg capsule take 1 by Oral route every morning 0 - Active Flomax 0.4 mg capsule Take 1 tablet by mouth every day. - Active isosorbide mononitrate ER 30 mg tablet,extended release 24 hr Take 1 tablet by mouth twice a day. - Active 1st Tier Unifine Pentips 32 x 5/32" needle use to inject levemir insulin daily - Active furosemide 20 mg tablet take 1 tablet (20MG) by oral route every day 20 MG - Active Vitamin B-12 1,000 mcg tablet take 1 Tablet by Oral route every day 0 - Active benazepril 20 mg tablet Take 0.5 tablets by mouth every day. - Active Spiriva with HandiHaler 18 mcg & inhalation capsules Inhale 1 capsule by inhalation every day as needed for breathing. - Active Plavix 75 mg tablet Take 1 tablet by mouth every day. - Active Januvia 50 mg tablet take 1 Tablet (50MG) by oral route every day 50 MG - Active atorvastatin 40 mg tablet take 1 tablet (40MG) by oral route every day 40 MG - Active carvedilol 25 mg tablet take 1 tablet (25MG) by oral route 2 times every day with food 25 MG - Active Aricept 10 mg tablet Take 1 tablet by mouth every morning. - Active Namenda 10 mg tablet Take 1/2 tablet by mouth twice a day. - Active Klor-Con M20 mEq tablet,extended release take one tablet by mouth every day. - Active levothyroxine 50 mcg tablet Take 1 tablet by mouth every day. - Active Levemir Flexpen 100 unit/mL (3 mL) solution subcutaneous insulin pen inject 30 Units by Subcutaneous route every day - Active Immunizations Vaccine Date Status Comments flu (split) (3 yrs or older) completed - Completed reason: public agency flu (split) (3 yrs or older) completed Td (adult) completed - Completed reason: source unspecified pneumo (2 yrs or older) ([id number]) completed - Completed reason: source unspecified Td (adult) completed - Completed reason: source unspecified Td (adult) completed - Completed reason: source unspecified Zoster completed - Completed reason: source unspecified Fluzone HD completed - Completed reason: other provider Results Test Name Date and Time Measure Units Reference Range Abnormal Flag Comments Panel Description: CBC WBC 09:04:00 5.7 K/uL 4.8-10.8 RBC 09:04:00 4.64 M/uL 4.60-6.20 HGB 09:04:00 13.0 g/dl 14.0-18.0 L HCT 09:04:00 39.4 % 42.0-52.0 L MCV 09:04:00 84.9 fL 82.0-99.0 MCH 09:04:00 28.0 pg 27.0-32.0 MCHC 09:04:00 33.0 g/dL 32.0-36.0 RDW 09:04:00 14.1 % 11.5-14.5 MPV 09:04:00 10.8 fL 8.8-14.8 Platelet Count 09:04:00 180 K/uL 150-400 Immature Granulocytes 09:04:00 0.4 % 0.0-1.0 Absolute Neutrophils 09:04:00 2.94 THOUS 1.90-7.00 Absolute Lymphocytes 09:04:00 1.67 THOUS 0.80-3.30 Absolute Monocytes 09:04:00 0.80 THOUS 0.30-1.00 Absolute Eosinophils 09:04:00 0.21 THOUS 0.00-0.50 Absolute Basophils 09:04:00 0.03 THOUS 0.00-0.20 Neutrophils 09:04:00 52 % 51-75 Lymphocytes 09:04:00 30 % 20-46 Monocytes 09:04:00 14 % 4-11 H Eosinophils 09:04:00 4 % 0-4 Basophils 09:04:00 1 % 0-2 Testing performed at [facility] [address] [place] [address] [employer] Sales Consultant Roc Perez MD Panel Description: Hemoglobin [id number] Hemoglobin A1C 09:04:00 9.0 % 4.1-5.6 H Testing performed at [facility] [address] [place] [address] Software Sales Consultant Roc Perez MD Panel Description: EAG Calculation-[facility] Estimated Average Glucose 09:04:00 211.6 mg/dL Testing performed at [facility] [address] [place] [address] Software Sales Consultant Roc Perez MD Panel Description: Urinalysis with Reflex Microscopic Appearance 09:04:00 Clear Color 09:04:00 Yellow Glucose, Urine 09:04:00 Negative Negative Ketones 09:04:00 Negative Negative Blood 09:04:00 Trace Negative A Protein 09:04:00 Pos 1+ Negative A Nitrites 09:04:00 Negative Negative Bilirubin 09:04:00 Negative Negative Specific [place] 09:04:00 1.018 1.003-1.03 pH 09:04:00 5.5 5.0-8.0 Urobilinogen 09:04:00 0.2 mg/dL <1.0 Leukocyte Esterase 09:04:00 Negative Negative Testing performed at [facility] [address] [place] [id number] [employer] Sales Consultant Roc Perez MD Panel Description: Urinalysis-Microscopic RBC, Urine 09:04:00 0-2 /HPF 0-2 Epithelial Cells 09:04:00 0-2 /HPF Urine Mucus 09:04:00 Present Microscop. Exam Perf. 09:04:00 performed Testing performed at [facility] [address] [place] [address] Software Sales Consultant Roc Perez MD Panel Description: Microalbumin/Creatinine Ratio-[facility] Creatinine mg/dL, Urine 09:04:00 198 mg/dL Albumin mg/dL, Urine 09:04:00 12.3 mg/dL 0.0-1.7 H Alb/Creat Ratio, Urine 09:04:00 62.1 mg/g 0.0-29.0 H Testing performed at [facility] [address] [place] [address] Software Sales Consultant Roc Perez MD Vital Signs Date / Time: Height Weight Pulse Rate Blood Pressure Temperature /08:48:00 70.00 in 196.00 lbs 60 /min 142/68 mm[Hg] 96.9 F Procedures Procedure Date Unknown Encounters Encounter Location Date Patient Visit [facility] Patient [facility] Patient [facility] Patient [facility] Patient [facility] Patient [facility] Patient [facility] Advance Directives Directive Effective Date Unknown
--- OUTSIDE RECORDS SUMMARY | 2017-03-15 13:00 | XMS REPORT | Referral Summary ---
Author Author [facility], Family Medicine Organization [facility] Address Unknown Phone Unavailable Care Team Providers Care Integrated Program Teacher Name Role Phone Mac Pat Primary Care Physician [phone] Encounter VC Date(s): 07/04/16 - 07/04/16 [facility], [address] [place] [address] Discharge Disposition: 01-Home or Self Care Attending Physician: Josias Pat MD Admitting Physician: Josias Pat MD Vital Signs Most recent to 1 oldest [Reference Range]: Temperature Tympanic 36.6 degC [36.6-38.1 degC] (07/04/16 8:48 AM) Peripheral Pulse 79 bpm Rate [60-100 bpm] (07/04/16 8:48 AM) Blood Pressure 126/52 mmHg [90-140/60-90 mmHg] (07/04/16 8:48 AM) Problem List Condition Effective Dates Status [...] type 2, uncontrolled(Confirm ed) Need for Active pmzmkqpcfo-gzicoid-v ertussis (Tdap) vaccine(Confirmed) Allergies, Adverse Reactions, Alerts Substance Reaction Severity Status aspirin epistaxis Active glimepiride SWELLING Active pioglitazone1 Active 1swelling Medications atorvastatin 40 mg oral tablet See Instructions, TAKE 1 TABLET ONE TIME DAILY AT BEDTIME, # 90 tabs, 2 Refill(s ), eRx: [facility], TAKE 1 TABLET ONE TIME DAILY AT BEDTIME Start Date: 11/07/15 Status: Ordered BD Ultra- Fine [place] BD Ultra- Fine Silke [place], See Instructions, dispense 3 mo supply-dx: 250.00, # 3 boxes, 3 Refill(s), [facility], dispense 3 mo supply- dx: 250.00 Start Date: 07/06/14 Status: Ordered carvedilol 25 mg oral tablet See Instructions, TAKE 1/2 TABLET TWICE DAILY, # 90 tabs, eRx: [facility], TAKE 1/2 TABLET TWICE DAILY Start Date: 06/19/16 Status: Ordered cephalexin 500 mg oral capsule 500 mg 1 caps, Oral, TID, X 10 days, # 30 caps, 0 Refill(s), Pharmacy: [id number], 1 caps Oral TID,x10 days Start Date: 07/04/16 Stop Date: 07/14/16 Status: Ordered clopidogrel 75 mg oral tablet See Instructions, TAKE 1 TABLET EVERY DAY, # 90 tabs, eRx: [facility], TAKE 1 TABLET EVERY DAY Start Date: 07/01/16 Status: Ordered donepezil 10 mg oral tablet See Instructions, TAKE 1 TABLET ONE TIME DAILY AT BEDTIME, # 90 tabs, eRx: [facility], TAKE 1 TABLET ONE TIME DAILY AT BEDTIME Start Date: 06/19/16 Status: Ordered Eliquis 5 mg oral tablet 5 mg 1 tabs, Oral, BID, cancel the 2.5 mg dose, # 180 tabs, 3 Refill(s), Pharmacy: [facility], 1 tabs Oral BID,x90 days,Instr:cancel the 2.5 mg dose Start Date: 05/23/16 Stop Date: 05/18/17 Status: Ordered Flomax 0.4 mg oral capsule See Instructions, TAKE 1 CAPSULE EVERY DAY (PLEASE SCHEDULE A COMPLETE PHYSICAL WITH DR PAT), # 90 caps, 2 Refill(s), eRx: [facility], TAKE 1 CAPSULE EVERY [...] evening, # 120 vials, 11 Refill(s), Pharmacy: [id number] Start Date: 07/18/15 Status: Ordered isosorbide mononitrate 20 mg oral tablet See Instructions, TAKE 1 TABLET TWICE DAILY, # 180 tabs, 2 Refill(s), eRx: [facility], TAKE 1 TABLET TWICE DAILY Start Date: 11/07/15 Status: Ordered Januvia 50 mg oral tablet See Instructions, TAKE 1 TABLET EVERY DAY, # 90 tabs, 3 Refill(s), eRx: [facility], TAKE 1 TABLET EVERY DAY Start Date: 07/17/15 Status: Ordered Klor-Con 10 10 mEq, Oral, Daily, Dr. Colmenares, 0 Refill(s) Start Date: 03/17/15 Status: Ordered Levemir FlexTouch 100 units/mL subcutaneous solution See Instructions, INJECT 37 UNITS SUBCUTANEOUSLY ONE TIME A DAY AT BEDTIME, # 45 mL, 1 Refill(s), eRx: [facility], INJECT 37 UNITS SUBCUTANEOUSLY ONE TIME A DAY AT BEDTIME Start Date: 03/01/16 Status: Ordered levothyroxine 50 mcg (0.05 mg) oral tablet See Instructions, TAKE 1 TABLET EVERY DAY, # 90 tabs, 2 Refill(s), eRx: [facility], TAKE 1 TABLET EVERY DAY Start Date: 11/07/15 Status: Ordered lisinopril 2.5 mg oral tablet 2.5 mg 1 tabs, Oral, Daily, # 90 tabs, 3 Refill(s), Pharmacy: [facility] Start Date: 08/21/15 Status: [...] # 100 tabs, 3 Refill(s), [facility], 1 tabs SubLingual q5min,PRN:as needed for chest pain,Instr: not to exceed 3... Start Date: 10/24/14 Status: Ordered pantoprazole 40 mg oral delayed release tablet See Instructions, TAKE 1 TABLET EVERY DAY, # 90 tabs, eRx: [facility], TAKE 1 TABLET EVERY DAY Start Date: 06/19/16 Status: Ordered Ventolin HFA 90 mcg/inh inhalation aerosol 1 puffs, Inhalation, QID, as needed for wheezing, # 3 Each, 3 Refill(s), Pharmacy: [facility], Discontinue Xopenex, 1 puffs Inhalation QID,PRN:as needed for wheezing Start Date: 05/17/15 Status: Ordered Vitamin B12 2,500 mcg, Oral, Daily, 0 Refill(s) Start Date: 05/10/14 Status: Ordered Results Hematology Most recent to 1 oldest [Reference Range]: WBC [4.8-10.8 6.2 10*3/uL 10*3/uL] (07/04/16 9:45 AM) RBC [4.60-6.20] 4.52 *LOW* (07/04/16 9:45 AM) Hgb [14.0-18.0 13.1 gm/dL gm/dL] *LOW* (07/04/16 9:45 AM) Hct [42.0-52.0 %] 39.1 % *LOW* (07/04/16 9:45 AM) MCV [82.0-99.0 fL] 86.5 fL (07/04/16 9:45 AM) MCH [27.0-32.0 pg] 29.0 pg (07/04/16 9:45 AM) MCHC [32.0-36.0 33.5 gm/dL gm/dL] (07/04/16 9:45 AM) RDW [11.5-14.5 %] 15.0 % *HI* (07/04/16 9:45 AM) Platelet [150-400 177 10*3/uL 10*3/uL] (07/04/16 9:45 AM) MPV [8.8-14.8 fL] 10.5 fL (07/04/16 9:45 AM) Immature 0.2 % Granulocytes (07/04/16 9:45 AM) [0.0-1.0 %] Neutrophils [51-75 58 % %] (07/04/16 9:45 AM) Lymphocytes [20-46 25 % %] (07/04/16 9:45 AM) Monocytes [4-11 %] 14 % *HI* (07/04/16 9:45 AM) Eosinophils [0-4 %] 3 % (07/04/16 9:45 AM) Basophils [0-2 %] 1 % (07/04/16 9:45 AM) Neutro Absolute 3.61 10*3 [1.90-7.00 10*3] (07/04/16 9:45 AM) Lymph Absolute 1.53 10*3 [0.80-3.30 10*3] (07/04/16 9:45 AM) [place] Absolute 0.85 10*3 [0.30-1.00 10*3] (07/04/16 9:45 AM) Eos Absolute 0.21 10*3 [0.00-0.50 10*3] (07/04/16 9:45 AM) Baso Absolute 0.04 10*3 [0.00-0.20 10*3] (07/04/16 9:45 AM) Chemistry Most recent to 1 oldest [Reference Range]: Sodium Lvl [135-144 136 mEq/L mEq/L] (07/04/16 9:45 AM) Potassium Lvl 4.0 mEq/L [3.5-5.2 mEq/L] (07/04/16 9:45 AM) Chloride [99-111 104 mEq/L mEq/L] (07/04/16 9:45 AM) CO2 [23-31 mEq/L] 28 mEq/L (07/04/16 9:45 AM) AGAP [3-20] 4 (07/04/16 9:45 AM) BUN [8-26 mg/dL] 18 mg/dL (07/04/16 9:45 AM) Glucose Lvl [70-99 221 mg/dL mg/dL] *HI* (07/04/16 9:45 AM) Creatinine Lvl 1.14 mg/dL [0.72-1.25 mg/dL] (07/04/16 9:45 AM) eGFR [>60 mL/min] >60 mL/min 1 (07/04/16 9:45 AM) Calcium Lvl 9.1 mg/dL [8.9-10.5 mg/dL] (07/04/16 9:45 AM) Albumin Lvl [3.4-4.8 3.7 gm/dL gm/dL] (07/04/16 9:45 AM) Total Protein 6.3 gm/dL 2 [6.0-7.6 gm/dL] (07/04/16 9:45 AM) Globulin [1.8-4.0 2.6 gm/dL gm/dL] (07/04/16 9:45 AM) ALT [0-55 U/L] 26 U/L (07/04/16 9:45 AM) AST [5-34 U/L] 25 U/L (07/04/16 9:45 AM) Alk Phos [40-150 87 U/L U/L] (07/04/16 9:45 AM) Bili Total [0.2-1.2 0.7 mg/dL mg/dL] (07/04/16 9:45 AM) Estimated Creatinine 47.21 mL/min Clearance (07/04/16 12:56 PM) 1Result Comment: Multiply eGFR results by 1.21 for race. 2Result Comment: Please note new reference range for adult Protein. 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 The infected area is usually red and tender. Cellulitis occurs most often in the arms and lower legs. CAUSES Cellulitis is caused by bacteria that enter the skin through cracks or cuts in the skin. The most common types of bacteria that cause cellulitis are staphylococci and streptococci. SIGNS AND SYMPTOMS Redness and warmth. Swelling. Tenderness or pain. Fever. DIAGNOSIS Your health care provider can usually determine what is wrong based on a physical exam. Blood tests may also be done. TREATMENT Treatment usually involves taking an antibiotic medicine. HOME CARE INSTRUCTIONS Take your antibiotic medicine as directed by your health care provider. Finish the antibiotic even if you start to feel better. Keep the infected arm or leg elevated to reduce swelling. Apply a warm cloth to the affected area up to 4 times per day to relieve pain. Take medicines only as directed by your health care provider. Keep all follow-up visits as directed by your health care provider. SEEK MEDICAL CARE IF: You notice red streaks coming from the infected area. Your red area gets larger or turns dark in color. Your bone or joint underneath the infected area becomes painful after the skin has healed. Your infection returns in the same area or another area. You notice a swollen bump in the infected area. You develop new symptoms. You have a fever. SEEK IMMEDIATE MEDICAL CARE IF: You feel very sleepy. You develop vomiting or diarrhea. You have a general ill feeling (malaise) with muscle aches and pains. MAKE SURE YOU: Understand these instructions. Will watch your condition. Will get help right away if you are not doing well or get worse. This information is not intended to replace advice given to you by your health care provider. Make sure you discuss any questions you have with your health care provider. Document Released: 08/20/2006 Document Revised: 12/01/2015 Document Reviewed: Exit[employer] Patient Information 2016 [employer]. No follow up information was provided. Extracted from: Title: abrasion and cellulitis of Author: Josias Pat MD Date: the right leg, DM, HTN Impression and Plan Diagnosis CKD (chronic kidney disease) stage 3, GFR 30-59 ml/min (WGC70-VS N18.3, Working , Medical). Alzheimer disease (TBA32-ST G30.9, Working, Medical). Hypertension, benign (TLN15-MR I10, Working, Medical). Hypothyroid (UJE91-CT E03.9, Working, Medical). Diabetes mellitus type 2, uncontrolled (ILP30-OX E11.65, Working, Medical). Diabetic nephropathy (IGD95-UL E11.21, Working, Medical). CAD (coronary artery disease) (QVC30-RV I25.10, Working, Medical). Primary hypercholesterolemia (KXX24-KI E78.0, Working, Medical). LAURA on CPAP (BGI82-YY G47.33, Working, Medical). Chronic atrial fibrillation (ZHY13-KW I48.2, Working, Medical). Abrasion of right leg (VLV11-AS S80.811A, Working, Medical). Cellulitis of right leg (AWY42-LX L03.115, Working, Medical). Plan: 1) Take the Cephalexin three times daily. 2) Get lab today. 3) See me in a couple of weeks as scheduled and as needed. 4) Schedule a skin lesion removal of the nodule on your left arm sometime.. Orders Orders (Selected) Outpatient Orders Ordered Office Visit Level 4 Est 59144: Future (On Hold) CBC w/ Differential: CMP: Prescriptions Prescribed cephalexin 500 mg oral capsule: 500 mg=1 caps, Oral, TID, for 10 days, 30 caps, 0 Refill(s). Dx/Order Association Plan: Diagnosis: Abrasion of right leg Comment: Modified: Office Visit Level 4 Est [id number]; 07/04/16 9:20:00 CDT, Abrasion of right leg | Cellulitis of right leg | Diabetes mellitus type 2, uncontrolled | Hypertension, benign | CKD (chronic kidney disease) stage 3, GFR 30-59 ml/min | CAD (coronary artery disease) | Diabetic nephropathy | Hyp... Diagnosis: Alzheimer disease Comment: Diagnosis: CAD (coronary artery disease) Comment: Modified: Office Visit Level 4 Est [id number]; 07/04/16 9:20:00 CDT, Abrasion of right leg | Cellulitis of right leg | Diabetes mellitus type 2, uncontrolled | Hypertension, benign | CKD (chronic kidney disease) stage 3, GFR 30-59 ml/min | CAD (coronary artery disease) | Diabetic nephropathy | Hyp... Diagnosis: CKD (chronic kidney disease) stage 3, GFR 30-59 ml/min Comment: Modified: Office Visit Level 4 Est [id number]; 07/04/16 9:20:00 CDT, Abrasion of right leg | Cellulitis of right leg | Diabetes mellitus type 2, uncontrolled | Hypertension, benign | CKD (chronic kidney disease) stage 3, GFR 30-59 ml/min | CAD (coronary artery disease) | Diabetic nephropathy | Hyp... Diagnosis: Cellulitis of right leg Comment: Modified: Office Visit Level 4 Est [id number]; 07/04/16 9:20:00 CDT, Abrasion of right leg | Cellulitis of right leg | Diabetes mellitus type 2, uncontrolled | Hypertension, benign | CKD (chronic kidney disease) stage 3, GFR 30-59 ml/min | CAD (coronary artery disease) | Diabetic nephropathy | Hyp... Diagnosis: Chronic atrial fibrillation Comment: Modified: Office Visit Level 4 Est [id number]; 07/04/16 9:20:00 CDT, Abrasion of right leg | Cellulitis of right leg | Diabetes mellitus type 2, uncontrolled | Hypertension, benign | CKD (chronic kidney disease) stage 3, GFR 30-59 ml/min | CAD (coronary artery disease) | Diabetic nephropathy | Hyp... Diagnosis: Diabetes mellitus type 2, uncontrolled Comment: Modified: Office Visit Level 4 Est [id number]; 07/04/16 9:20:00 CDT, Abrasion of right leg | Cellulitis of right leg | Diabetes mellitus type 2, uncontrolled | Hypertension, benign | CKD (chronic kidney disease) stage 3, GFR 30-59 ml/min | CAD (coronary artery disease) | Diabetic nephropathy | Hyp... Diagnosis: Diabetic nephropathy Comment: Modified: Office Visit Level 4 Est [id number]; 07/04/16 9:20:00 CDT, Abrasion of right leg | Cellulitis of right leg | Diabetes mellitus type 2, uncontrolled | Hypertension, benign | CKD (chronic kidney disease) stage 3, GFR 30-59 ml/min | CAD (coronary artery disease) | Diabetic nephropathy | Hyp... Diagnosis: Hypertension, benign Comment: Modified: Office Visit Level 4 Est [id number]; 07/04/16 9:20:00 CDT, Abrasion of right leg | Cellulitis of right leg | Diabetes mellitus type 2, uncontrolled | Hypertension, benign | CKD (chronic kidney disease) stage 3, GFR 30-59 ml/min | CAD (coronary artery disease) | Diabetic nephropathy | Hyp... Diagnosis: Hypothyroid Comment: Modified: Office Visit Level 4 Est [id number]; 07/04/16 9:20:00 CDT, Abrasion of right leg | Cellulitis of right leg | Diabetes mellitus type 2, uncontrolled | Hypertension, benign | CKD (chronic kidney disease) stage 3, GFR 30-59 ml/min | CAD (coronary artery disease) | Diabetic nephropathy | Hyp... Diagnosis: LAURA on CPAP Comment: Modified: Office Visit Level 4 Est [id number]; 07/04/16 9:20:00 CDT, Abrasion of right leg | Cellulitis of right leg | Diabetes mellitus type 2, uncontrolled | Hypertension, benign | CKD (chronic kidney disease) stage 3, GFR 30-59 ml/min | CAD (coronary artery disease) | Diabetic nephropathy | Hyp... Diagnosis: Primary hypercholesterolemia Comment: Modified: Office Visit Level 4 Est [id number]; 07/04/16 9:20:00 CDT, Abrasion of right leg | Cellulitis of right leg | Diabetes mellitus type 2, uncontrolled | Hypertension, benign | CKD (chronic kidney disease) stage 3, GFR 30-59 ml/min | CAD (coronary artery disease) | Diabetic nephropathy | Hyp... Diagnosis: Hypertension, benign Comment: Diagnosis: Cellulitis of right leg Comment: Diagnosis: Diabetes mellitus type 2, uncontrolled Comment: Diagnosis: Diabetic nephropathy Comment: Diagnosis: CKD (chronic kidney disease) stage 3, GFR 30-59 ml/min Comment: Diagnosis: Hypertension, benign Comment: Additional Orders: Comment: Ordered: cephalexin 500 mg oral capsule,500 mg 1 caps, Oral, TID, X 10 days, # 30 caps, 0 Refill(s), Pharmacy: [id number], 1 caps Oral TID,x10 days End of Orders ."
--- OUTSIDE RECORDS SUMMARY | 2017-03-15 13:00 | XMS REPORT | Referral Summary ---
Author Author [facility] Organization [facility] Address Unknown Phone Unavailable Care Team Providers Care Garnetter Name Role Phone Mac Pat Primary Care Physician [phone] Encounter Date(s): 06/15/15 - 06/15/15 [facility] [address], [facility] [address] [place], [place] [address] Discharge Diagnosis: COPD (chronic obstructive pulmonary disease) Discharge Disposition: 01-Home or Self Care Attending Physician: Josias Pat MD Admitting Physician: Josias Pat MD Vital Signs No [...] type 2, uncontrolled(Confirm ed) Need for Active oqslfrxkcr-yazojhw-g ertussis (Tdap) vaccine(Confirmed) Allergies, Adverse Reactions, Alerts Substance Reaction Severity Status aspirin epistaxis Active glimepiride SWELLING Active pioglitazone1 Active 1swelling Medications atorvastatin 40 mg oral tablet See Instructions, TAKE 1 TABLET ONE TIME DAILY AT BEDTIME, # 90 tabs, 2 Refill(s ), eRx: [facility], TAKE 1 TABLET ONE TIME DAILY AT BEDTIME Start Date: 11/07/15 Status: Ordered BD Ultra- Fine [place] BD Ultra- Fine [place], See Instructions, dispense 3 mo supply-dx: 250.00, # 3 boxes, 3 Refill(s), Pharmacy: [facility], dispense 3 mo supply- dx: 250.00 Start Date: 07/06/14 Status: Ordered carvedilol 25 mg oral tablet See Instructions, TAKE 1/2 TABLET TWICE DAILY, # 90 tabs, 2 Refill(s), eRx: [facility], TAKE 1/2 TABLET TWICE [...] PAT), # 90 caps, 2 Refill(s), eRx: [facility], TAKE 1 CAPSULE EVERY DAY (PLEASE SCHEDULE A COMPLETE PHYSICAL WITH DR PAT) Start Date: 11/07/15 Status: Ordered furosemide 20 mg oral tablet 1 tabs, Oral, Daily, Dr. Colmenares, 0 Refill(s) Start Date: 03/17/15 Status: Ordered ipratropium-albuterol 0.5 mg-2.5 mg/3 mLinhalation solution 3 mL, Inhalation, QID, DX: COPD-496., # 120 vials, 11 Refill(s), Pharmacy: [id number] Start Date: 07/18/15 Status: Ordered isosorbide mononitrate 20 mg oral tablet See Instructions, TAKE 1 TABLET TWICE DAILY, # 180 tabs, 2 Refill(s), eRx: [facility], TAKE 1 TABLET TWICE DAILY Start Date: 11/07/15 Status: Ordered Januvia 50 mg oral tablet See Instructions, TAKE 1 TABLET EVERY DAY, # 90 tabs, 3 Refill(s), eRx: [facility], TAKE 1 TABLET EVERY DAY Start Date: 07/17/15 Status: Ordered Klor-Con 10 10 mEq, Oral, Daily, Dr. Colmenares, 0 Refill(s) Start Date: 03/17/15 Status: Ordered Levemir FlexTouch 100 units/mL subcutaneous solution See Instructions, INJECT 37 UNITS SUBCUTANEOUSLY ONE TIME A DAY AT BEDTIME, # 30 mL, 1 Refill(s), Pharmacy: [facility], INJECT 37 UNITS SUBCUTANEOUSLY ONE TIME A DAY AT BEDTIME Start Date: 11/08/15 Status: Ordered levothyroxine 50 mcg (0.05 mg) oral tablet See Instructions, TAKE 1 TABLET EVERY DAY, # 90 tabs, 2 Refill(s), eRx: [facility], TAKE 1 TABLET EVERY DAY Start Date: 11/07/15 Status: Ordered lisinopril 2.5 mg oral tablet 2.5 mg 1 tabs, Oral, Daily, # 90 tabs, 3 Refill(s), Pharmacy: [facility] Start Date: 08/21/15 Status: Ordered lutein 20 mg oral tablet 1 tabs, Oral, Daily, # 30 tabs, 0 Refill(s) Start Date: 05/10/14 Status: Ordered memantine 10 mg oral tablet 5 mg 0.5 tabs, Oral, BID, # 90 tabs, 3 Refill(s), Pharmacy: [facility], 0.5 tabs Oral BID,x90 [...] See scanned document 2Result Comment: [08/23/2015] Zostavax [id number] unit Procedures Procedure Date Related Diagnosis Body Site Colonoscopy 2008 Colonoscopy 2006 for small [place] 2000 catherization x2 anteriograms 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
--- OUTSIDE RECORDS SUMMARY | 2017-03-15 13:01 | XMS REPORT | Referral Summary ---
Author Author [facility] Organization [facility] Address Unknown Phone Unavailable Care Team Providers Care Sales Analyst Name Role Phone Mac Pat Primary Care Physician [phone] Encounter VC Date(s): 05/06/16 - 05/06/16 [facility] [address] [place] [id number] Discharge Disposition: 01-Home or Self Care Attending Physician: Josias Pat MD Admitting Physician: Josias Pat MD Vital Signs Most recent to 1 oldest [Reference Range]: Temperature Tympanic 36.5 degC [36.6-38.1 degC] *LOW* (05/06/16 10:52 AM) Peripheral Pulse 80 bpm Rate [60-100 bpm] (05/06/16 10:52 AM) Blood Pressure 126/58 mmHg [90-140/60-90 mmHg] (05/06/16 10:52 AM) SpO2 100 % (05/06/16 10:52 AM) Problem List Condition Effective Dates Status [...] type 2, uncontrolled(Confirm ed) Need for Active dhltbmkenz-rvfkoju-v ertussis (Tdap) vaccine(Confirmed) Allergies, Adverse Reactions, Alerts Substance Reaction Severity Status aspirin epistaxis Active glimepiride SWELLING Active pioglitazone1 Active 1swelling Medications atorvastatin 40 mg oral tablet See Instructions, TAKE 1 TABLET ONE TIME DAILY AT BEDTIME, # 90 tabs, 2 Refill(s ), eRx: [facility], TAKE 1 TABLET ONE TIME DAILY AT BEDTIME Start Date: 11/07/15 Status: Ordered BD Ultra- Fine [place] BD Ultra- Fine Sil[place], See Instructions, dispense 3 mo supply-dx: 250.00, # 3 boxes, 3 Refill(s), Pharmacy: [facility], dispense 3 mo supply- dx: 250.00 Start Date: 07/06/14 Status: Ordered carvedilol 25 mg oral tablet See Instructions, TAKE 1/2 TABLET TWICE DAILY, # 90 tabs, 2 Refill(s), eRx: [facility], TAKE 1/2 TABLET TWICE DAILY Start Date: 10/06/15 Status: Ordered cephalexin 500 mg oral capsule 500 mg 1 caps, Oral, TID, X 10 days, # 30 caps, 0 Refill(s), Pharmacy: [id number], 1 caps Oral TID,x10 days Start Date: 05/06/16 Stop Date: 05/16/16 Status: Ordered donepezil 10 mg oral tablet 5 mg 0.5 tabs, Oral, Daily, X 90 days, # 45 tabs, 3 Refill(s), other reason (Rx) , TAKE 1 TABLET ONE TIME DAILY AT BEDTIME Start Date: 11/22/15 Stop Date: 11/16/16 Status: Ordered Eliquis 2.5 mg oral tablet 2.5 mg 1 tabs, Oral, BID, # 60 tabs, 11 Refill(s) Start Date: 05/06/16 Status: Ordered Flomax 0.4 mg oral capsule See Instructions, TAKE 1 CAPSULE EVERY DAY (PLEASE SCHEDULE A COMPLETE PHYSICAL WITH DR PAT), # 90 caps, 2 Refill(s), eRx: [facility], TAKE 1 CAPSULE EVERY [...] evening, # 120 vials, 11 Refill(s), Pharmacy: [id number] Start Date: 07/18/15 Status: Ordered isosorbide mononitrate 20 mg oral tablet See Instructions, TAKE 1 TABLET TWICE DAILY, # 180 tabs, 2 Refill(s), eRx: [facility], TAKE 1 TABLET TWICE DAILY Start Date: 11/07/15 Status: Ordered Januvia 50 mg oral tablet See Instructions, TAKE 1 TABLET EVERY DAY, # 90 tabs, 3 Refill(s), [facility], TAKE 1 TABLET EVERY DAY Start Date: 07/17/15 Status: Ordered Klor-Con 10 10 mEq, Oral, Daily, Dr. Colmenares, 0 Refill(s) Start Date: 03/17/15 Status: Ordered Levemir FlexTouch 100 units/mL subcutaneous solution See Instructions, INJECT 37 UNITS SUBCUTANEOUSLY ONE TIME A DAY AT BEDTIME, # 45 mL, 1 Refill(s), eRx: [facility], INJECT 37 UNITS SUBCUTANEOUSLY ONE TIME A DAY AT BEDTIME Start Date: 03/01/16 Status: Ordered levothyroxine 50 mcg (0.05 mg) oral tablet See Instructions, TAKE 1 TABLET EVERY DAY, # 90 tabs, 2 Refill(s), eRx: [facility], TAKE 1 TABLET EVERY DAY Start Date: 11/07/15 Status: Ordered lisinopril 2.5 mg oral tablet 2.5 mg 1 tabs, Oral, Daily, # 90 tabs, 3 Refill(s), [facility] Start Date: 08/21/15 Status: Ordered lutein 20 mg oral tablet 1 tabs, Oral, Daily, # 30 tabs, 0 Refill(s) Start Date: 05/10/14 Status: Ordered memantine 10 mg oral tablet 5 mg 0.5 tabs, Oral, BID, # 90 tabs, 3 Refill(s), [facility]acy: [facility], 0.5 tabs Oral BID,x90 days Start Date: 05/24/15 Stop Date: 05/18/16 Status: Ordered MEMANTINE HCL 10 MG Tablet See Instructions, TAKE 1/2 TABLET TWICE DAILY, # 90 tabs, 3 Refill(s), [facility]Rx: [facility], TAKE 1/2 TABLET TWICE DAILY Start Date: 04/15/16 Status: Ordered nitroglycerin 0.4 mg sublingual tablet [...] tabs, 3 Refill(s), eRx: [facility], TAKE 1 TABLET EVERY DAY Start Date: 07/17/15 Status: Ordered Plavix 75 mg oral tablet See Instructions, TAKE 1 TABLET EVERY DAY, # 90 tabs, 3 Refill(s), [facility]: [facility], TAKE 1 TABLET EVERY DAY Start Date: 07/17/15 Status: Ordered Ventolin HFA 90 mcg/inh inhalation aerosol 1 puffs, Inhalation, QID, as needed for wheezing, # 3 Each, 3 Refill(s), Pharmacy: [facility], Discontinue Xopenex, 1 puffs Inhalation QID,PRN:as needed for wheezing Start Date: 05/17/15 Status: Ordered Vitamin B12 2,500 mcg, Oral, Daily, 0 Refill(s) Start Date: 05/10/14 Status: Ordered Results Hematology Most recent to 1 oldest [Reference Range]: WBC [5.0-10.0 7.1 10*3/uL 10*3/uL] (05/06/16 11:50 AM) RBC [3.70-5.20] 4.22 (05/06/16 11:50 AM) Hgb [12.0-16.0 12.1 gm/dL gm/dL] (05/06/16 11:50 AM) Hct [40.0-54.0 %] 37.1 % *LOW* (05/06/16 11:50 AM) MCV [80.0-96.0 fL] 87.9 fL (05/06/16 11:50 AM) MCH [26.0-34.0 pg] 28.7 pg (05/06/16 11:50 AM) MCHC [32.0-36.0 32.6 gm/dL gm/dL] (05/06/16 11:50 AM) RDW [0.0-14.5 %] 15.5 % *HI* (05/06/16 11:50 AM) Platelet [150-400 180 10*3/uL 10*3/uL] (05/06/16 11:50 AM) MPV [8.8-14.8 fL] 10.2 fL (05/06/16 11:50 AM) Neutrophils [50-70 66 % %] (05/06/16 11:50 AM) Lymphocytes [20-40 18 % %] *LOW* (05/06/16 11:50 AM) Monocytes [4-8 %] 13 % *HI* (05/06/16 11:50 AM) Eosinophils [0-6 %] 3 % (05/06/16 11:50 AM) Basophils [0-2 %] 0 % (05/06/16 11:50 AM) Neutro Absolute 4.73 10*3 [2.50-7.00 10*3] (05/06/16 11:50 AM) Lymph Absolute 1.31 10*3 [1.00-4.00 10*3] (05/06/16 11:50 AM) [place] Absolute 0.89 10*3 [0.20-0.80 10*3] *HI* (05/06/16 11:50 AM) Eos Absolute 0.18 10*3 [0.00-0.60 10*3] (05/06/16 11:50 AM) Baso Absolute 0.03 [0.00-0.30] (05/06/16 11:50 AM) Chemistry Most recent to 1 oldest [Reference Range]: TSH [0.35-4.94] 2.16 (05/06/16 11:50 AM) Hgb A1c [4.1-5.6 %] 7.0 % *HI* (05/06/16 11:50 AM) eAvg Glucose 154.2 mg/dL (05/06/16 11:50 AM) Urinalysis Most recent to 1 oldest [Reference Range]: UA Color Yellow (05/06/16 12:05 PM) UA Appear Clear (05/06/16 12:05 PM) UA pH [5.0-8.0] 5.0 (05/06/16 12:05 PM) UA Leuk Est Negative [Negative] (05/06/16 12:05 PM) UA Nitrite Negative [Negative] (05/06/16 12:05 PM) UA Protein Negative [Negative] (05/06/16 12:05 PM) UA Glucose Trace [Negative] *ABN* (05/06/16 12:05 PM) UA Ketones Negative [Negative] (05/06/16 12:05 PM) UA Urobilinogen 0.2 mg/dL [<=1.0 mg/dL] (05/06/16 12:05 PM) UA Bili [Negative] Negative (05/06/16 12:05 PM) UA Blood [Negative] Negative (05/06/16 12:05 PM) UA Spec Grav 1.010 [1.003-1.030] (05/06/16 12:05 PM) Type Cl Catch (05/06/16 12:05 PM) Immunizations Vaccine Date Refusal Reason tetanus/diphth/pertuss [...] See scanned document 2Result Comment: [08/23/2015] Zostavax [id number] unit Procedures Procedure Date Related Diagnosis Body Site Colonoscopy 2008 Colonoscopy 2005 for small NM 1999 catherization x2 anteriograms 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 During atrial fibrillation, the upper chambers of the heart (atria) quiver continuously in a chaotic pattern. This causes an irregular and often rapid heart rate. Atrial fibrillation is the result of the heart becoming overloaded with disorganized signals that tell it to beat. These signals are normally released one at a time by a part of the right atrium called the sinoatrial node. They then travel from the atria to the lower chambers of the heart (ventricles), causing the atria and ventricles to contract and pump blood as they pass. In atrial fibrillation, parts of the atria outside of the sinoatrial node also release these signals. This results in two problems. First, the atria receive so many signals that they do not have time to fully contract. Second, the ventricles, which can only receive one signal at a time, beat irregularly and out of rhythm with the atria. There are three types of atrial fibrillation: Paroxysmal. Paroxysmal atrial fibrillation starts suddenly and stops on its own within a week. Persistent. Persistent atrial fibrillation lasts for more than a week. It may stop on its own or with treatment. Permanent. Permanent atrial fibrillation does not go away. Episodes of atrial fibrillation may lead to permanent atrial fibrillation. Atrial fibrillation can prevent your heart from pumping blood normally. It increases your risk of stroke and can lead to heart failure. CAUSES Heart conditions, including a heart attack, heart failure, coronary artery disease, and heart valve conditions. Inflammation of the sac that surrounds the heart (pericarditis). Blockage of an artery in the lungs (pulmonary embolism). Pneumonia or other infections. Chronic lung disease. Thyroid problems, especially if the thyroid is overactive ( hyperthyroidism). Caffeine, excessive alcohol use, and use of some illegal drugs. Use of some medicines, including certain decongestants and diet pills. Heart surgery. defects. Sometimes, no cause can be found. When this happens, the atrial fibrillation is called lone atrial fibrillation. The risk of complications from atrial fibrillation increases if you have lone atrial fibrillation and you are age 60 years or older. RISK FACTORS Heart failure. Coronary artery disease. Diabetes mellitus. High blood pressure (hypertension). Obesity. Other arrhythmias. Increased age. SIGNS AND SYMPTOMS A feeling that your heart is beating rapidly or irregularly. A feeling of discomfort or pain in your chest. Shortness of breath. Sudden light-headedness or weakness. Getting tired easily when exercising. Urinating more often than normal (mainly when atrial fibrillation first begins). In paroxysmal atrial fibrillation, symptoms may start and suddenly stop. DIAGNOSIS Your health care provider may be able to detect atrial fibrillation when taking your pulse. Your health care provider may have you take a test called an ambulatory electrocardiogram (ECG). An ECG records your heartbeat patterns over a 24-hour period. You may also have other tests, such as: Transthoracic echocardiogram (TTE). During echocardiography, sound waves are used to evaluate how blood flows through your heart. Transesophageal echocardiogram (LIYAH). Stress test. There is more than one type of stress test. If a stress test is needed, ask your health care provider about which type is best for you. Chest X-ray exam. Blood tests. Computed tomography (CT). TREATMENT Treatment may include: Treating any underlying conditions. For example, if you have an overactive thyroid, treating the condition may correct atrial fibrillation. Taking medicine. Medicines may be given to control a rapid heart rate or to prevent blood clots, heart failure, or a stroke. Having a procedure to correct the rhythm of the heart: Electrical cardioversion. During electrical cardioversion, a controlled, low-energy shock is delivered to the heart through your skin. If you have chest pain, very low blood pressure, or sudden heart failure, this procedure may need to be done as an emergency. Catheter ablation. During this procedure, heart tissues that send the signals that cause atrial fibrillation are destroyed. Surgical ablation. During this surgery, thin lines of heart tissue that carry the abnormal signals are destroyed. This procedure can either be an open- heart surgery or a minimally invasive surgery. With the minimally invasive surgery, small cuts are made to access the heart instead of a large opening. Pulmonary venous isolation. During this surgery, tissue around the veins that carry blood from the lungs (pulmonary veins) is destroyed. This tissue is thought to carry the abnormal signals. HOME CARE INSTRUCTIONS Take medicines only as directed by your health care provider. Some medicines can make atrial fibrillation worse or recur. If blood thinners were prescribed by your health care provider, take them exactly as directed. Too much blood-thinning medicine can cause bleeding. If you take too little, you will not have the needed protection against stroke and other problems. Perform blood tests at home if directed by your health care provider. Perform blood tests exactly as directed. Quit smoking if you smoke. Do not drink alcohol. Do not drink caffeinated beverages such as coffee, soda, and some teas. You may drink decaffeinated coffee, soda, or tea. Maintain a healthy weight.Do not use diet pills unless your health care provider approves. They may make heart problems worse. Follow diet instructions as directed by your health care provider. Exercise regularly as directed by your health care provider. Keep all follow-up visits as directed by your health care provider. This is important. PREVENTION The following substances can cause atrial fibrillation to recur: Caffeinated beverages. Alcohol. Certain medicines, especially those used for breathing problems. Certain herbs and herbal medicines, such as those containing ephedra or ginseng. Illegal drugs, such as cocaine and amphetamines. Sometimes medicines are given to prevent atrial fibrillation from recurring. Proper treatment of any underlying condition is also important in helping prevent recurrence. SEEK MEDICAL CARE IF: You notice a change in the rate, rhythm, or strength of your heartbeat. You suddenly begin urinating more frequently. You tire more easily when exerting yourself or exercising. SEEK IMMEDIATE MEDICAL CARE IF: You have chest pain, abdominal pain, sweating, or weakness. You feel nauseous. You have shortness of breath. You suddenly have swollen feet and ankles. You feel dizzy. Your face or limbs feel numb or weak. You have a change in your vision or speech. MAKE SURE YOU: Understand these instructions. Will watch your condition. Will get help right away if you are not doing well or get worse. This information is not intended to replace advice given to you by your health care provider. Make sure you discuss any questions you have with your health care provider. Document Released: 11/10/2006 Document Revised: 12/01/2015 Document Reviewed: [facility] [place] Patient Information 2016 [employer] [facility]. No follow up information was provided. Extracted from: Title: CHF, CAD, DM, HTN, new onset Author: Josias Pat MD Date: 05/06 AF Impression and Plan Diagnosis Diabetes Type 2, uncontrolled (LBL96-IM E11.9, Working, Medical). CKD (chronic kidney disease) stage 3, GFR 30-59 ml/min (BGL75-VG N18.3, Working , Medical). Alzheimer disease (YSQ17-UK G30.9, Working, Medical). Hypertension, benign (NLX00-UJ I10, Working, Medical). Hypothyroid (BZK91-QL E03.9, Working, Medical). CAD (coronary artery disease) (CHJ07-UR I25.10, Working, Medical). Chronic obstructive pulmonary disease (COPD) (TER27-TU J44.9, Working, Medical) . LAURA on CPAP (FYY15-PY G47.33, Working, Medical). Systolic CHF, acute (NLM57-AL I50.21, Working, Medical). Cellulitis of right foot (MLM63-XW L03.115, Working, Medical). Lymphedema of leg (FHP77-KO I89.0, Working, Medical). Primary hypercholesterolemia (QYE45-JZ E78.0, Working, Medical). Chronic atrial fibrillation (SZT88-IU I48.2, Working, Medical). Plan: 1) Start Eliquis 2.5 mg twice a day. (May use the samples at 1/2 tab twice a day) 2) ECG showed atrial fibrillation. 3) I spoke with Dr. Colmenares, who wants to see you in the office at 9 AM. 4) Continue your routine meds the same. 5) Take Cephalexin three times daily for your right foot infection. 6) See me in 2 months and as needed.. Orders Orders (Selected) Outpatient Orders Ordered BNP: CBC w/ Differential: CMP: Electrocardiogram, Routine Ecg With At Least 12 Leads; Interpretation And Report Only [id number]: Hgb A1c: Office Visit Level 5 Est 13622: TSH 3rd Generation: Troponin: Ordered (Pending Collection) Routine Urinalysis: Completed Message for Lab: Prescriptions Prescribed Eliquis 2.5 mg oral tablet: 2.5 mg=1 tabs, Oral, BID, 60 tabs, 11 Refill(s) cephalexin 500 mg oral capsule: 500 mg=1 caps, Oral, TID, for 10 days, 30 caps, 0 Refill(s) morphine 20 mg/mL oral concentrate: 5 mg=0.25 mL, Oral, q4hr, , PRN : and every 2 hours as needed for pain, 30 mL, 0 Refill(s). Dx/Order Association Plan: Diagnosis: Alzheimer disease Comment: Diagnosis: CAD (coronary artery disease) Comment: Ordered: Troponin; Blood, Routine Collect, 05/06/16 11:44:00 CDT, Once, Stop date 05/06/16 11:44:00 CDT, Lab Collect, CAD (coronary artery disease ) | Systolic CHF, acute BNP; Blood, Routine Collect, 05/06/16 11:44:00 CDT , Once, Stop date 05/06/16 11:44:00 CDT, Lab Collect, Systolic CHF, acute | CAD (coronary artery disease) Electrocardiogram, Routine Ecg With At Least 12 Leads; Interpretation And Report Only [id number]; 05/06/16 11:11:00 CDT, 1, Systolic CHF, acute | CAD (coronary artery disease) Modified: Office Visit Level 5 Est [id number]; 05/06/16 11:15:00 CDT, Systolic CHF, acute | Cellulitis of right foot | Chronic atrial fibrillation | Diabetes Type 2, uncontrolled Other status: Message for Lab; Blood, Stat Collect, Collected, 11:44:00 CDT, N/A, Systolic CHF, acute | CAD (coronary artery disease) | Diabetes Type 2, uncontrolled | Lymphedema of leg | Cellulitis of right foot ( Completed) Diagnosis: CKD (chronic kidney disease) stage 3, GFR 30-59 ml/min Comment: Ordered: CBC w/ Differential; Blood, Stat Collect, 05/06/16 11:44: 00 CDT, Once, Stop date 05/06/16 11:44:00 CDT, Lab Collect, CKD (chronic kidney disease) stage 3, GFR 30-59 ml/min | Hypertension, benign | Cellulitis of right foot | Systolic CHF, acute Diagnosis: Cellulitis of right foot Comment: Ordered: CBC w/ Differential; Blood, Stat Collect, 05/06/16 11:44: 00 CDT, Once, Stop date 05/06/16 11:44:00 CDT, Lab Collect, CKD (chronic kidney disease) stage 3, GFR 30-59 ml/min | Hypertension, benign | Cellulitis of right foot | Systolic CHF, acute Modified: Office Visit Level 5 Est [id number]; 05/06/16 11:15:00 CDT, Systolic CHF, acute | Cellulitis of right foot | Chronic atrial fibrillation | Diabetes Type 2, uncontrolled Other status: Message for Lab; Blood, Stat Collect, Collected, 11:44:00 CDT, N/A, Systolic CHF, acute | CAD (coronary artery disease) | Diabetes Type 2, uncontrolled | Lymphedema of leg | Cellulitis of right foot ( Completed) Diagnosis: Chronic atrial fibrillation Comment: Modified: Office Visit Level 5 Est [id number]; 05/06/16 11:15:00 CDT, Systolic CHF, acute | Cellulitis of right foot | Chronic atrial fibrillation | Diabetes Type 2, uncontrolled Diagnosis: Chronic obstructive pulmonary disease (COPD) Comment: Diagnosis: Diabetes Type 2, uncontrolled Comment: Ordered: Hgb A1c; Blood, Routine Collect, 05/06/16 11:44:00 CDT, Once, Stop date 05/06/16 11:44:00 CDT, Lab Collect, Diabetes Type 2, uncontrolled CMP; Blood, Routine Collect, 05/06/16 11:44:00 CDT , Once, Stop date 05/06/16 11:44:00 CDT, Lab Collect, Systolic CHF, acute | Hypertension, benign | Diabetes Type 2, uncontrolled | Primary hypercholesterolemia Routine Urinalysis; Urine, Clean Catch, Stat collect, 05/06/16 11:44:00 CDT, Once, Stop date 05/06/16 11:44:00 CDT, Nurse Collect Non-Blood, Diabetes Type 2, uncontrolled | Hypertension, benign Modified: Office Visit Level 5 Est [id number]; 05/06/16 11:15:00 CDT, Systolic CHF, acute | Cellulitis of right foot | Chronic atrial fibrillation | Diabetes Type 2, uncontrolled Other status: Message for Lab; Blood, Stat Collect, Collected, 11:44:00 CDT, N/A, Systolic CHF, acute | CAD (coronary artery disease) | Diabetes Type 2, uncontrolled | Lymphedema of leg | Cellulitis of right foot ( Completed) Diagnosis: Hypertension, benign Comment: Ordered: CMP; Blood, Routine Collect, 05/06/16 11:44:00 CDT, Once , Stop date 05/06/16 11:44:00 CDT, Lab Collect, Systolic CHF, acute | Hypertension, benign | Diabetes Type 2, uncontrolled | Primary hypercholesterolemia CBC w/ Differential; Blood, Stat Collect, 05/06/16 11:44:00 CDT, Once, Stop date 05/06/16 11:44:00 CDT, Lab Collect, CKD (chronic kidney disease) stage 3, GFR 30-59 ml/min | Hypertension, benign | Cellulitis of right foot | Systolic CHF, acute Routine Urinalysis; Urine, Clean Catch, Stat collect, 05/06/16 11:44:00 CDT, Once, Stop date 05/06/16 11:44:00 CDT, Nurse Collect Non-Blood, Diabetes Type 2, uncontrolled | Hypertension, benign Diagnosis: Hypothyroid Comment: Ordered: TSH 3rd Generation; Blood, Routine Collect, 05/06/16 11: 44:00 CDT, Once, Stop date 05/06/16 11:44:00 CDT, Lab Collect, Hypothyroid Diagnosis: Lymphedema of leg Comment: Modified: Office Visit Level 5 Est [id number]; 05/06/16 11:15:00 CDT, Systolic CHF, acute | Cellulitis of right foot | Chronic atrial fibrillation | Diabetes Type 2, uncontrolled Other status: Message for Lab; Blood, Stat Collect, Collected, 11:44:00 CDT, N/A, Systolic CHF, acute | CAD (coronary artery disease) | Diabetes Type 2, uncontrolled | Lymphedema of leg | Cellulitis of right foot ( Completed) Diagnosis: LAURA on CPAP Comment: Diagnosis: Primary hypercholesterolemia Comment: Ordered: CMP; Blood, Routine Collect, 05/06/16 11:44:00 CDT, Once , Stop date 05/06/16 11:44:00 CDT, Lab Collect, Systolic CHF, acute | Hypertension, benign | Diabetes Type 2, uncontrolled | Primary hypercholesterolemia Diagnosis: Systolic CHF, acute Comment: Ordered: CMP; Blood, Routine Collect, 05/06/16 11:44:00 CDT, Once , Stop date 05/06/16 11:44:00 CDT, Lab Collect, Systolic CHF, acute | Hypertension, benign | Diabetes Type 2, uncontrolled | Primary hypercholesterolemia CBC w/ Differential; Blood, Stat Collect, 05/06/16 11:44:00 CDT, Once, Stop date 05/06/16 11:44:00 CDT, Lab Collect, CKD (chronic kidney disease) stage 3, GFR 30-59 ml/min | Hypertension, benign | Cellulitis of right foot | Systolic CHF, acute Troponin; Blood, Routine Collect, 05/06/16 11:44: 00 CDT, Once, Stop date 05/06/16 11:44:00 CDT, Lab Collect, CAD (coronary artery disease) | Systolic CHF, acute BNP; Blood, Routine Collect, 05/06/16 11:44:00 CDT , Once, Stop date 05/06/16 11:44:00 CDT, Lab Collect, Systolic CHF, acute | CAD (coronary artery disease) Electrocardiogram, Routine Ecg With At Least 12 Leads; Interpretation And Report Only [id number]; 05/06/16 11:11:00 CDT, 1, Systolic CHF, acute | CAD (coronary artery disease) Modified: Office Visit Level 5 Est [id number]; 05/06/16 11:15:00 CDT, Systolic CHF, acute | Cellulitis of right foot | Chronic atrial fibrillation | Diabetes Type 2, uncontrolled Other status: Message for Lab; Blood, Stat Collect, Collected, 11:44:00 CDT, N/A, Systolic CHF, acute | CAD (coronary artery disease) | Diabetes Type 2, uncontrolled | Lymphedema of leg | Cellulitis of right foot ( Completed) Additional Orders: Comment: Ordered: Eliquis 2.5 mg oral tablet,2.5 mg 1 tabs, Oral, BID, # 60 tabs, 11 Refill(s) Ordered: cephalexin 500 mg oral capsule,500 mg 1 caps, Oral, TID, X 10 days, # 30 caps, 0 Refill(s), Pharmacy: [id number], 1 caps Oral TID,x10 days End of Orders ."
--- OUTSIDE RECORDS SUMMARY | 2017-03-15 13:01 | XMS REPORT | Referral Summary ---
Author Author [facility] Organization [facility] Address Unknown Phone Unavailable Care Team Providers Care Flame Cutter Name Role Phone Mac Pat Primary Care Physician [phone] Encounter VC Date(s): 05/23/16 - 05/23/16 [facility], Family [address] [place] [id number] Discharge Disposition: 01-Home or Self Care Attending Physician: Josias Pat MD Admitting Physician: Josias Pat MD Vital Signs Most recent to 1 oldest [Reference Range]: Temperature Tympanic 36.9 degC [36.6-38.1 degC] (05/23/16 8:52 AM) Peripheral Pulse 80 bpm Rate [60-100 bpm] (05/23/16 8:52 AM) Blood Pressure 122/50 mmHg [90-140/60-90 mmHg] (05/23/16 8:52 AM) Problem List Condition Effective Dates Status [...] type 2, uncontrolled(Confirm ed) Need for Active tfuivkkmpc-xxgtvzu-u ertussis (Tdap) vaccine(Confirmed) Allergies, Adverse Reactions, Alerts Substance Reaction Severity Status aspirin epistaxis Active glimepiride SWELLING Active pioglitazone1 Active 1swelling Medications atorvastatin 40 mg oral tablet See Instructions, TAKE 1 TABLET ONE TIME DAILY AT BEDTIME, # 90 tabs, 2 Refill(s ), eRx: [facility], TAKE 1 TABLET ONE TIME DAILY AT BEDTIME Start Date: 11/07/15 Status: Ordered BD Ultra- Fine Sil[place] BD Ultra- Fine [place], See Instructions, dispense 3 mo supply-dx: 250.00, # 3 boxes, 3 Refill(s), [facility], dispense 3 mo supply- dx: 250.00 Start Date: 07/06/14 Status: Ordered carvedilol 25 mg oral tablet See Instructions, TAKE 1/2 TABLET TWICE DAILY, # 90 tabs, 2 Refill(s), eRx: [facility], TAKE 1/2 TABLET TWICE DAILY Start Date: 10/06/15 Status: Ordered donepezil 10 mg oral tablet 5 mg 0.5 tabs, Oral, Daily, X 90 days, # 45 tabs, 3 Refill(s), other reason (Rx) , TAKE 1 TABLET ONE TIME DAILY AT BEDTIME Start Date: 11/22/15 Stop Date: 11/16/16 Status: Ordered Eliquis 5 mg oral tablet 5 mg 1 tabs, Oral, BID, cancel the 2.5 mg dose, # 180 tabs, 3 Refill(s), Pharmacy: [facility], 1 tabs Oral BID,x90 days,Instr:cancel the 2.5 mg dose Start Date: 05/23/16 Stop Date: 05/18/17 Status: Ordered Flomax 0.4 mg oral capsule See Instructions, TAKE 1 CAPSULE EVERY DAY (PLEASE SCHEDULE A COMPLETE PHYSICAL WITH DR PAT), # 90 caps, 2 Refill(s), eRx: [facility], TAKE 1 CAPSULE EVERY [...] evening, # 120 vials, 11 Refill(s), Pharmacy: [id number] Start Date: 07/18/15 Status: Ordered isosorbide mononitrate 20 mg oral tablet See Instructions, TAKE 1 TABLET TWICE DAILY, # 180 tabs, 2 Refill(s), eRx: [facility], TAKE 1 TABLET TWICE DAILY Start Date: 11/07/15 Status: Ordered Januvia 50 mg oral tablet See Instructions, TAKE 1 TABLET EVERY DAY, # 90 tabs, 3 Refill(s), eRx: [facility], TAKE 1 TABLET EVERY DAY Start Date: 07/17/15 Status: Ordered Klor-Con 10 10 mEq, Oral, Daily, Dr. Colmenares, 0 Refill(s) Start Date: 03/17/15 Status: Ordered Levemir FlexTouch 100 units/mL subcutaneous solution See Instructions, INJECT 37 UNITS SUBCUTANEOUSLY ONE TIME A DAY AT BEDTIME, # 45 mL, 1 Refill(s), eRx: [facility], INJECT 37 UNITS SUBCUTANEOUSLY ONE TIME A DAY AT BEDTIME Start Date: 03/01/16 Status: Ordered levothyroxine 50 mcg (0.05 mg) oral tablet See Instructions, TAKE 1 TABLET EVERY DAY, # 90 tabs, 2 Refill(s), eRx: [facility], TAKE 1 TABLET EVERY DAY Start Date: 11/07/15 Status: Ordered lisinopril 2.5 mg oral tablet 2.5 mg 1 tabs, Oral, Daily, # 90 tabs, 3 Refill(s), Pharmacy: [facility] Start Date: 08/21/15 [...] # 100 tabs, 3 Refill(s), [facility], 1 tabs SubLingual q5min,PRN:as needed for chest pain,Instr: not to exceed 3... Start Date: 10/24/14 Status: Ordered pantoprazole 40 mg oral delayed release tablet See Instructions, TAKE 1 TABLET EVERY DAY, # 90 tabs, 3 Refill(s), eRx: [facility], TAKE 1 TABLET EVERY DAY Start Date: 07/17/15 Status: Ordered Plavix 75 mg oral tablet See Instructions, TAKE 1 TABLET EVERY DAY, # 90 tabs, 3 Refill(s), eRx: [facility], TAKE 1 TABLET EVERY DAY Start Date: 07/17/15 Status: Ordered Ventolin HFA 90 mcg/inh inhalation aerosol 1 puffs, Inhalation, QID, as needed for wheezing, # 3 Each, 3 Refill(s), [facility], Discontinue Xopenex, 1 puffs Inhalation QID,PRN:as needed for wheezing Start Date: 05/17/15 Status: Ordered Vitamin B12 2,500 mcg, Oral, Daily, 0 Refill(s) Start Date: 05/10/14 Status: Ordered Results Hematology Most recent to 1 oldest [Reference Range]: WBC [4.8-10.8 5.9 10*3/uL 10*3/uL] (05/23/16 9:53 AM) RBC [4.60-6.20] 4.29 *LOW* (05/23/16 9:53 AM) Hgb [14.0-18.0 12.3 gm/dL gm/dL] *LOW* (05/23/16 9:53 AM) Hct [42.0-52.0 %] 37.5 % *LOW* (05/23/16 9:53 AM) MCV [82.0-99.0 fL] 87.4 fL (05/23/16 9:53 AM) MCH [27.0-32.0 pg] 28.7 pg (05/23/16 9:53 AM) MCHC [32.0-36.0 32.8 gm/dL gm/dL] (05/23/16 9:53 AM) RDW [11.5-14.5 %] 15.8 % *HI* (05/23/16 9:53 AM) Platelet [150-400 166 10*3/uL 10*3/uL] (05/23/16 9:53 AM) MPV [8.8-14.8 fL] 10.5 fL (05/23/16 9:53 AM) Immature 0.3 % Granulocytes (05/23/16:53 AM) [0.0-1.0 %] Neutrophils [51-75 57 % %] (05/23/16 9:53 AM) Lymphocytes [20-46 23 % %] (05/23/16 9:53 AM) Monocytes [4-11 %] 15 % *HI* (05/23/16 9:53 AM) Eosinophils [0-4 %] 4 % (05/23/16 9:53 AM) Basophils [0-2 %] 1 % (05/23/16 9:53 AM) Neutro Absolute 3.38 10*3 [1.90-7.00 10*3] (05/23/16 9:53 AM) Lymph Absolute 1.35 10*3 [0.80-3.30 10*3] (05/23/16 9:53 AM) [place] Absolute 0.91 10*3 [0.30-1.00 10*3] (05/23/16 9:53 AM) Eos Absolute 0.21 10*3 [0.00-0.50 10*3] (05/23/16 9:53 AM) Baso Absolute 0.04 10*3 [0.00-0.20 10*3] (05/23/16 9:53 AM) Chemistry Most recent to 1 oldest [Reference Range]: Sodium Lvl [135-144 139 mEq/L mEq/L] (05/23/16 9:53 AM) Potassium Lvl 3.9 mEq/L [3.5-5.2 mEq/L] (05/23/16 9:53 AM) Chloride [99-111 105 mEq/L mEq/L] (05/23/16 9:53 AM) CO2 [23-31 mEq/L] 30 mEq/L (05/23/16 9:53 AM) AGAP [3-20] 4 (05/23/16 9:53 AM) BUN [8-26 mg/dL] 20 mg/dL (05/23/16 9:53 AM) Glucose Lvl [70-99 217 mg/dL mg/dL] *HI* (05/23/16 9:53 AM) Creatinine Lvl 1.42 mg/dL [0.72-1.25 mg/dL] *HI* (05/23/16 9:53 AM) eGFR [>60 mL/min] 47 mL/min 1 *ABN* (05/23/16 9:53 AM) Calcium Lvl 9.1 mg/dL [8.9-10.5 mg/dL] (05/23/16 9:53 AM) 1Result Comment: Multiply eGFR results by [...] See scanned document 2Result Comment: [08/23/2015] Zostavax 51535 unit Procedures Procedure Date Related Diagnosis Body [...] Patient Education Author: Josias Pat MD Date: 05/23 Cardiovascular Atrial Fibrillation Atrial fibrillation is a [...] Released: 11/10/2006 Document Revised: 12/01/2015 Document Reviewed: [facility] Patient Information 2016 [employer] [facility]. No follow up information was provided. Extracted from: Title: AF, CHF, DM, HTN Author: Josias Pat MD Date: 05/23/16 Impression and Plan Diagnosis CKD (chronic kidney disease) stage 3, GFR 30-59 ml/min (HDR14-AZ N18.3, Working , Medical). Alzheimer disease (ABI15-XT G30.9, Working, Medical). Hypertension, benign (FNH46-NH I10, Working, Medical). Hypothyroid (BBU68-KC E03.9, Working, Medical). Diabetes mellitus type 2, uncontrolled (WYG45-VD E11.65, Working, Medical). CAD (coronary artery disease) (HQO89-JJ I25.10, Working, Medical). Primary hypercholesterolemia (EZB52-BU E78.0, Working, Medical). Acute systolic heart failure (JSM48-QJ I50.21, Working, Medical). Lymphedema of leg (USX15-HU I89.0, Working, Medical). LAURA on CPAP (BLT50-UZ G47.33, Working, Medical). Chronic atrial fibrillation (HKB80-XJ I48.2, Working, Medical). Plan: 1) Increase your Eliquis to 5 mg twice a day. 2) Call, or go to ER if spontaneous bleeding occurs. 3) Continue your same meds otherwise. 4) See me in 2 months and as needed. 5) Lab ordered today.. Orders Orders (Selected) Outpatient Orders Ordered Office Visit Level 4 Est 51135: Completed BMP: CBC w/ Differential: eGFR: Prescriptions Prescribed Eliquis 5 mg oral tablet: 5 mg=1 tabs, Oral, BID, for 90 days, cancel the 2.5 mg dose, 180 tabs, 3 Refill(s). Dx/Order Association Plan: Diagnosis: Acute systolic heart failure Comment: Ordered: Office Visit Level 4 Est 44554; 05/23/16 9:22:00 CDT, Acute systolic heart failure | Diabetes mellitus type 2, uncontrolled | Chronic atrial fibrillation | Lymphedema of leg | Primary hypercholesterolemia Diagnosis: Alzheimer disease Comment: Diagnosis: CAD (coronary artery disease) Comment: Diagnosis: CKD (chronic kidney disease) stage 3, GFR 30-59 ml/min Comment: Diagnosis: Chronic atrial fibrillation Comment: Ordered: Office Visit Level 4 Est 63252; 05/23/16 9:22:00 CDT, Acute systolic heart failure | Diabetes mellitus type 2, uncontrolled | Chronic atrial fibrillation | Lymphedema of leg | Primary hypercholesterolemia Other status: BMP; Blood, Routine Collect, 05/23/16 9:48:00 CDT, Once, Stop date 05/23/16 9:48:00 CDT, Lab Collect, Chronic atrial fibrillation | Diabetes mellitus type 2, uncontrolled | Hypertension, benign (Completed) CBC w/ Differential; Blood, Routine Collect , 05/23/16 9:48:00 CDT, Once, Stop date 05/23/16 9:48:00 CDT, Lab Collect, Hypertension, benign | Chronic atrial fibrillation (Completed) Diagnosis: Diabetes mellitus type 2, uncontrolled Comment: Ordered: Office Visit Level 4 Est [id number]; 05/23/16 9:22:00 CDT, Acute systolic heart failure | Diabetes mellitus type 2, uncontrolled | Chronic atrial fibrillation | Lymphedema of leg | Primary hypercholesterolemia Other status: BMP; Blood, Routine Collect, 05/23/16 9:48:00 CDT, Once, Stop date 05/23/16 9:48:00 CDT, Lab Collect, Chronic atrial fibrillation | Diabetes mellitus type 2, uncontrolled | Hypertension, benign (Completed) Diagnosis: Hypertension, benign Comment: Other status: BMP; Blood, Routine Collect, 05/23/16 9:48:00 CDT, Once, Stop date 05/23/16 9:48:00 CDT, Lab Collect, Chronic atrial fibrillation | Diabetes mellitus type 2, uncontrolled | Hypertension, benign (Completed) CBC w/ Differential; Blood, Routine Collect , 05/23/16 9:48:00 CDT, Once, Stop date 05/23/16 9:48:00 CDT, Lab Collect, Hypertension, benign | Chronic atrial fibrillation (Completed) Diagnosis: Hypothyroid Comment: Diagnosis: Lymphedema of leg Comment: Ordered: Office Visit Level 4 Est [id number]; 05/23/16 9:22:00 CDT, Acute systolic heart failure | Diabetes mellitus type 2, uncontrolled | Chronic atrial fibrillation | Lymphedema of leg | Primary hypercholesterolemia Diagnosis: LAURA on CPAP Comment: Diagnosis: Primary hypercholesterolemia Comment: Ordered: Office Visit Level 4 Est [id number]; 05/23/16 9:22:00 CDT, Acute systolic heart failure | Diabetes mellitus type 2, uncontrolled | Chronic atrial fibrillation | Lymphedema of leg | Primary hypercholesterolemia Additional Orders: Comment: Ordered: Eliquis 5 mg oral tablet,5 mg 1 tabs, Oral, BID, cancel the 2.5 mg dose, # 180 tabs, 3 Refill(s), Pharmacy: [facility], 1 tabs Oral BID,x90 days,Instr:cancel the 2.5 mg dose End of Orders ."
--- OUTSIDE RECORDS SUMMARY | 2017-03-15 13:01 | XMS REPORT | Referral Summary ---
Author Author [facility] [place] Organization [facility] [place] Address Unknown Phone Unavailable Care Team Providers Care Sound Designer Name Role Phone Mac Pat Primary Care Physician [phone] Encounter Date(s): 04/05/16 - 04/05/16 [facility] [place] [address] [place] [address] Discharge Diagnosis: LAURA on CPAP Discharge Disposition: 01-Home or Self Care Attending Physician: Ludy Escalera Vital Signs Most recent to 1 oldest [Reference Range]: Peripheral Pulse 85 bpm Rate [60-100 bpm] (04/05/16 10:19 AM) Blood Pressure 126/78 mmHg [90-140/60-90 mmHg] (04/05/16 10:19 AM) SpO2 94 % (04/05/16 10:19 AM) Problem List Condition Effective Dates Status [...] type 2, uncontrolled(Confirm ed) Need for Active xcmugckwou-chveveg-f ertussis (Tdap) vaccine(Confirmed) Allergies, Adverse Reactions, Alerts Substance Reaction Severity Status aspirin epistaxis Active glimepiride SWELLING Active pioglitazone1 Active 1swelling Medications atorvastatin 40 mg oral tablet See Instructions, TAKE 1 TABLET ONE TIME DAILY AT BEDTIME, # 90 tabs, 2 Refill(s ), eRx: [facility], TAKE 1 TABLET ONE TIME DAILY AT BEDTIME Start Date: 11/07/15 Status: Ordered BD Ultra- Fine Silke Pen [place] BD Ultra- Fine [place], See Instructions, dispense 3 mo supply-dx: 250.00, # 3 boxes, 3 Refill(s), Pharmacy: [facility], dispense 3 mo supply- dx: 250.00 Start Date: 07/06/14 Status: Ordered carvedilol 25 mg oral tablet See Instructions, TAKE 1/2 TABLET TWICE DAILY, # 90 tabs, 2 Refill(s), eRx: [facility], TAKE 1/2 TABLET TWICE [...] PAT), # 90 caps, 2 Refill(s), eRx: [facility], TAKE 1 CAPSULE EVERY [...] evening, # 120 vials, 11 Refill(s), Pharmacy: [id number] Start Date: 07/18/15 Status: Ordered isosorbide mononitrate 20 mg oral tablet See Instructions, TAKE 1 TABLET TWICE DAILY, # 180 tabs, 2 Refill(s), eRx: [facility], TAKE 1 TABLET TWICE DAILY Start Date: 11/07/15 Status: Ordered Januvia 50 mg oral tablet See Instructions, TAKE 1 TABLET EVERY DAY, # 90 tabs, 3 Refill(s), eRx: [facility], TAKE 1 TABLET EVERY DAY Start Date: 07/17/15 Status: Ordered Klor-Con 10 10 mEq, Oral, Daily, Dr. Colmenares, 0 Refill(s) Start Date: 03/17/15 Status: Ordered Levemir FlexTouch 100 units/mL subcutaneous solution See Instructions, INJECT 37 UNITS SUBCUTANEOUSLY ONE TIME A DAY AT BEDTIME, # 45 mL, 1 Refill(s), eRx: [facility], INJECT 37 UNITS SUBCUTANEOUSLY ONE TIME A DAY AT BEDTIME Start Date: 03/01/16 Status: Ordered levothyroxine 50 mcg (0.05 mg) oral tablet See Instructions, TAKE 1 TABLET EVERY DAY, # 90 tabs, 2 Refill(s), eRx: [facility], TAKE 1 TABLET EVERY DAY Start Date: 11/07/15 Status: Ordered lisinopril 2.5 mg oral tablet 2.5 mg 1 tabs, Oral, Daily, # 90 tabs, 3 Refill(s), Pharmacy: [facility] Start Date: 08/21/15 Status: Ordered lutein 20 mg oral tablet 1 tabs, Oral, Daily, # 30 tabs, 0 Refill(s) Start Date: 05/10/14 Status: Ordered memantine 10 mg oral tablet 5 mg 0.5 tabs, Oral, BID, # 90 tabs, 3 Refill(s), Pharmacy: [facility], 0.5 tabs Oral BID,x90 days Start Date: 05/24/15 Stop Date: 05/18/16 Status: Ordered nitroglycerin 0.4 mg sublingual tablet 1 tabs, SubLingual, q5min, as needed for chest pain, not to exceed 3 doses/15 min--if pain persists, seek medical attention, # 100 tabs, 3 Refill(s), Pharmacy : [facility], 1 tabs SubLingual q5min,PRN:as needed for [...] See scanned document 2Result Comment: [08/23/2015] Zostavax 69821 unit Procedures Procedure Date Related Diagnosis Body [...] Office Visit Note Author: Ludy Escalera Date: 04/05/16 Assessment/Plan LAURA on CPAP - Adequate treatment with CPAP symptomatically and objectively at current pressure withexcellent adherence to therapy. Continue CPAP with all sleep at 13cm. Order to [facility] for supplies. -CPAP download reviewed with the patient and [...]
--- OUTSIDE RECORDS SUMMARY | 2017-03-15 13:01 | XMS REPORT | Referral Summary ---
Author Author [facility], Family Medicine Organization [facility] Address Unknown Phone Unavailable Care Team Providers Care Fuse Assembler Name Role Phone Mac Pat Primary Care Physician [phone] Encounter VC Date(s): 11/22/15 - 11/22/15 [facility] [address] [place] [id number] Discharge Disposition: 01-Home or Self Care Attending Physician: Josias Pat MD Admitting Physician: Josias Pat MD Vital Signs Most recent to 1 oldest [Reference Range]: Temperature Tympanic 36.5 degC [36.6-38.1 degC] *LOW* (11/22/15 9:48 AM) Peripheral Pulse 60 bpm Rate [60-100 bpm] (11/22/15 9:48 AM) Blood Pressure 140/60 mmHg [90-140/60-90 mmHg] (11/22/15 9:48 AM) Problem List Condition Effective Dates Status [...] type 2, uncontrolled(Confirm ed) Need for Active qtokvamnew-uvdmoqx-v ertussis (Tdap) vaccine(Confirmed) Allergies, Adverse Reactions, Alerts Substance Reaction Severity Status aspirin epistaxis Active glimepiride SWELLING Active pioglitazone1 Active 1swelling Medications atorvastatin 40 mg oral tablet See Instructions, TAKE 1 TABLET ONE TIME DAILY AT BEDTIME, # 90 tabs, 2 Refill(s ), eRx: [facility], TAKE 1 TABLET ONE TIME DAILY AT BEDTIME Start Date: 11/07/15 Status: Ordered BD Ultra- Fine Silke Pen Opp BD Ultra- Fine Silke Pen Opp, See Instructions, dispense 3 mo supply-dx: 250.00, # 3 boxes, 3 Refill(s), Pharmacy: [facility], dispense 3 mo supply- dx: 250.00 Start Date: 07/06/14 Status: Ordered carvedilol 25 mg oral tablet See Instructions, TAKE 1/2 TABLET TWICE DAILY, # 90 tabs, 2 Refill(s), eRx: [facility], TAKE 1/2 TABLET TWICE [...] PAT), # 90 caps, 2 Refill(s), eRx: [facility], TAKE 1 CAPSULE EVERY DAY (PLEASE SCHEDULE A COMPLETE PHYSICAL WITH DR PAT) Start Date: 11/07/15 Status: Ordered furosemide 20 mg oral tablet 1 tabs, Oral, Daily, Dr. Colmenares, 0 Refill(s) Start Date: 03/17/15 Status: Ordered ipratropium-albuterol 0.5 mg-2.5 mg/3 mLinhalation solution 3 mL, Inhalation, QID, DX: [id number]., # 120 vials, 11 Refill(s), Pharmacy: [id number] Start Date: 07/18/15 Status: Ordered isosorbide mononitrate 20 mg oral tablet See Instructions, TAKE 1 TABLET TWICE DAILY, # 180 tabs, 2 Refill(s), eRx: [facility], TAKE 1 TABLET TWICE DAILY Start Date: 11/07/15 Status: Ordered Januvia 50 mg oral tablet See Instructions, TAKE 1 TABLET EVERY DAY, # 90 tabs, 3 Refill(s), eRx: [facility], TAKE 1 TABLET EVERY DAY Start Date: 07/17/15 Status: Ordered Klor-Con 10 10 mEq, Oral, Daily, Dr. Colmenares, 0 Refill(s) Start Date: 03/17/15 Status: Ordered Levemir FlexTouch 100 units/mL subcutaneous solution See Instructions, INJECT 37 UNITS SUBCUTANEOUSLY ONE TIME A DAY AT BEDTIME, # 30 mL, 1 Refill(s), Pharmacy: [facility], INJECT 37 UNITS SUBCUTANEOUSLY ONE TIME A DAY AT BEDTIME Start Date: 11/08/15 Status: Ordered levothyroxine 50 mcg (0.05 mg) oral tablet See Instructions, TAKE 1 TABLET EVERY DAY, # 90 tabs, 2 Refill(s), eRx: [facility], TAKE 1 TABLET EVERY DAY Start Date: 11/07/15 Status: Ordered lisinopril 2.5 mg oral tablet 2.5 mg 1 tabs, Oral, Daily, # 90 tabs, 3 Refill(s), Pharmacy: [facility] Start Date: 08/21/15 Status: Ordered lutein 20 mg oral tablet 1 tabs, Oral, Daily, # 30 tabs, 0 Refill(s) Start Date: 05/10/14 Status: Ordered memantine 10 mg oral tablet 5 mg 0.5 tabs, Oral, BID, # 90 tabs, 3 Refill(s), Pharmacy: [facility], 0.5 tabs Oral BID,x90 [...] DAY, # 90 tabs, 3 Refill(s), eRx: [facility], TAKE 1 TABLET EVERY DAY Start Date: 07/17/15 Status: Ordered Plavix 75 mg oral tablet See Instructions, TAKE 1 TABLET EVERY DAY, # 90 tabs, 3 Refill(s), eRx: [facility], TAKE 1 TABLET EVERY DAY Start Date: 07/17/15 Status: Ordered Spiriva 18 mcg inhalation capsule See Instructions, INHALE THE CONTENTS OF ONE CAPSULE IN 2 INHALATIONS DAILY NEEDED FOR DIFFICULTY IN BREATHING, # 90 caps, 1 Refill(s), eRx: [facility], INHALE THE CONTENTS OF ONE CAPSULE IN 2 INHALATIONS DAILY NEEDED FOR... Start Date: 07/17/15 Status: Ordered Ventolin HFA 90 mcg/inh inhalation aerosol 1 puffs, Inhalation, QID, as needed for wheezing, # 3 Each, 3 Refill(s), Pharmacy: [facility], Discontinue Xopenex, 1 puffs Inhalation QID,PRN:as needed for wheezing Start Date: 05/17/15 Status: Ordered Vitamin B12 2,500 mcg, Oral, Daily, 0 Refill(s) Start Date: 05/10/14 Status: Ordered Results Hematology Most recent to 1 oldest [Reference Range]: WBC [4.8-10.8 5.8 10*3/uL 10*3/uL] (11/22/15 10:30 AM) RBC [4.60-6.20] 4.27 *LOW* (11/22/15 10:30 AM) Hgb [14.0-18.0 12.4 gm/dL gm/dL] *LOW* (11/22/15 10:30 AM) Hct [42.0-52.0 %] 37.3 % *LOW* (11/22/15 10:30 AM) MCV [82.0-99.0 fL] 87.4 fL (11/22/15 10:30 AM) MCH [27.0-32.0 pg] 29.0 pg (11/22/15 10:30 AM) MCHC [32.0-36.0 33.2 gm/dL gm/dL] (11/22/15 10:30 AM) RDW [11.5-14.5 %] 14.1 % (11/22/15 10:30 AM) Platelet [150-400 185 10*3/uL 10*3/uL] (11/22/15 10:30 AM) MPV [8.8-14.8 fL] 10.8 fL (11/22/15 10:30 AM) Immature 0.3 % Granulocytes (11/22/15:30 AM) [0.0-1.0 %] Neutrophils [51-75 54 % %] (11/22/15 10:30 AM) Lymphocytes [20-46 29 % %] (11/22/15 10:30 AM) Monocytes [4-11 %] 13 % *HI* (11/22/15 10:30 AM) Eosinophils [0-4 %] 4 % (11/22/15 10:30 AM) Basophils [0-2 %] 1 % (11/22/15 10:30 AM) Neutro Absolute 3.13 10*3 [1.90-7.00 10*3] (11/22/15 10:30 AM) Lymph Absolute 1.66 10*3 [0.80-3.30 10*3] (11/22/15 10:30 AM) [place] Absolute 0.74 10*3 [0.30-1.00 10*3] (11/22/15 10:30 AM) Eos Absolute 0.22 10*3 [0.00-0.50 10*3] (11/22/15 10:30 AM) Baso Absolute 0.04 10*3 [0.00-0.20 10*3] (11/22/15 10:30 AM) Chemistry Most recent to 1 oldest [Reference Range]: Sodium Lvl [135-144 140 mEq/L mEq/L] (11/22/15 10:30 AM) Potassium Lvl 3.9 mEq/L [3.5-5.2 mEq/L] (11/22/15 10:30 AM) Chloride [99-111 106 mEq/L mEq/L] (11/22/15 10:30 AM) CO2 [23-31 mEq/L] 28 mEq/L (11/22/15 10:30 AM) AGAP [3-20] 6 (11/22/15 10:30 AM) BUN [8-26 mg/dL] 16 mg/dL (11/22/15 10:30 AM) Glucose Lvl [70-99 133 mg/dL mg/dL] *HI* (11/22/15 10:30 AM) Creatinine Lvl 1.11 mg/dL [0.72-1.25 mg/dL] (11/22/15 10:30 AM) eGFR [>60 mL/min] >60 mL/min 1 (11/22/15 10:30 AM) Calcium Lvl 9.0 mg/dL [8.9-10.5 mg/dL] (11/22/15 10:30 AM) Albumin Lvl [3.4-4.8 3.6 gm/dL gm/dL] (11/22/15 10:30 AM) Total Protein 6.2 gm/dL [6.2-8.1 gm/dL] (11/22/15 10:30 AM) Globulin [1.8-4.0 2.6 gm/dL gm/dL] (11/22/15 10:30 AM) ALT [0-55 U/L] 26 U/L (11/22/15 10:30 AM) AST [5-34 U/L] 24 U/L (11/22/15 10:30 AM) Alk Phos [40-150 79 U/L U/L] (11/22/15 10:30 AM) Bili Total [0.2-1.2 0.4 mg/dL mg/dL] (11/22/15 10:30 AM) Hgb A1c [4.1-5.6 %] 6.7 % *HI* (11/22/15 10:30 AM) eAvg Glucose 145.6 mg/dL (11/22/15 10:30 AM) 1Result Comment: Multiply eGFR results by [...] See scanned document 2Result Comment: [08/23/2015] Zostavax 33547 unit Procedures Procedure Date Related Diagnosis Body Site Colonoscopy 2008 Colonoscopy 2005 for small MA 1999 catherization x2 anteriograms 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 This information is not intended to replace advice given to you by your health care provider. Make sure you discuss any questions you have with your health care provider. No follow up information was provided. Extracted from: Title: CAD, DM, HTN Author: Josias Pat MD Date: 11/22/15 Impression and Plan Diagnosis Coronary disease (CEO66-QI I25.10, Working, Medical). CKD (chronic kidney disease) stage 3, GFR 30-59 ml/min (UIT60-FD N18.3, Working , Medical). Alzheimer disease (BLF08-XF G30.9, Working, Medical). Hypertension, benign (QXY30-ZU I10, Working, Medical). Hypothyroid (TJY23-VB E03.9, Working, Medical). 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 Diabetic nephropathy (OVD54-UZ E11.21, Working, Medical). Primary hypercholesterolemia (IBD84-FB E78.0, Working, Medical). LAURA on CPAP (GXA35-CO G47.33, Working, Medical). Chronic obstructive pulmonary disease (COPD) (JJE25-TX J44.9, Working, Medical). Well controlled type 2 diabetes mellitus (PZM77-NI E11.9, Working, Medical). Anemia of chronic disease (JGF71-UV D63.8, Working, Medical). Leg cramps (RKX52-DX R25.2, Working, Medical). Plan: 1) Reduce the Donepezil to 1/2 tab daily, to see if this reduces or eliminates your nightmares. 2) Continue your other meds the same. 3) Lab ordered today. 4) See me in 3 months and as needed. 5) Healthy diet and daily walking exercise helps most things. . Orders Orders (Selected) Outpatient Orders Ordered Office Visit Level 4 Est 26685: Future (On Hold) Albumin/Creatinine Ratio, Urine: CBC w/ Differential: CMP: Hgb A1c: . Dx/Order Association Plan: Diagnosis: Alzheimer disease Comment: Diagnosis: Anemia of chronic disease Comment: Ordered: Office Visit Level 4 Est 89461; 11/22/15 9:56:00 [employer], Coronary disease | Well controlled type 2 diabetes mellitus | Hypertension, benign | Anemia of chronic disease Diagnosis: BPH with urinary obstruction Comment: Diagnosis: CKD (chronic kidney disease) stage 3, GFR 30-59 ml/min Comment: Diagnosis: Chronic obstructive pulmonary disease (COPD) Comment: Diagnosis: Coronary disease Comment: Ordered: Office Visit Level 4 Est [id number]; 11/22/15 9:56:00 [employer], Coronary disease | Well controlled type 2 diabetes mellitus | Hypertension, benign | Anemia of chronic disease Diagnosis: Diabetic nephropathy Comment: Diagnosis: Hypertension, benign Comment: Ordered: Office Visit Level 4 Est [id number]; 11/22/15 9:56:00 [employer], Coronary disease | Well controlled type 2 diabetes mellitus | Hypertension, benign | Anemia of chronic disease Diagnosis: Hypothyroid Comment: Diagnosis: Leg cramps Comment: Diagnosis: LAURA on CPAP Comment: Diagnosis: Primary hypercholesterolemia Comment: Diagnosis: Well controlled type 2 diabetes mellitus Comment: Ordered: Office Visit Level 4 Est 53942; 11/22/15 9:56:00 [employer], Coronary disease | Well controlled type 2 diabetes mellitus | Hypertension, benign | Anemia of chronic disease Diagnosis: Hypertension, benign Comment: Diagnosis: Well controlled type 2 diabetes mellitus Comment: Diagnosis: Hypertension, benign Comment: Diagnosis: Anemia of chronic disease Comment: Diagnosis: Well controlled type 2 diabetes mellitus Comment: Diagnosis: Diabetic nephropathy Comment: End of Orders ."
--- OUTSIDE RECORDS SUMMARY | 2017-03-15 13:01 | XMS REPORT | Referral Summary ---
Author Organization Unknown Address Unknown Phone Unavailable Care Team Providers Care Commissary Manager Name Role Phone Mac Pat Primary Care Physician [phone] Encounter Date(s): 01/17/15 - 01/17/15 Via NIVIA Qureshi, Stew, Family Medicine [address] [place] [address] RUTH Abarca [id number] Discharge Diagnosis: Ataxic gait Discharge Diagnosis: Hypothyroid Discharge Diagnosis: Seborrheic keratoses, inflamed Discharge Diagnosis: Benign essential hypertension Discharge Diagnosis: Diabetes Type 2, uncontrolled Discharge Diagnosis: Hyperlipemia Discharge Diagnosis: GERD (gastroesophageal reflux disease) Discharge Diagnosis: Coronary disease Discharge Diagnosis: Alzheimer disease Discharge Diagnosis: BPH with urinary obstruction Discharge Diagnosis: Diabetic nephropathy Discharge Diagnosis: LAURA on CPAP Discharge Diagnosis: CKD (chronic kidney disease) stage 3, GFR 30-59 ml/min Discharge Disposition: Home or Self Care Attending Physician: Josias Pat MD Admitting Physician: Josias Pat MD Vital Signs Most recent to 1 oldest [Reference Range]: Temperature Tympanic 35.7 degC [36.6-38.1 degC] *LOW* (01/17/15 11:03 AM) Peripheral Pulse 64 bpm Rate [60-100 bpm] (01/17/15 11:03 AM) Blood Pressure 160/60 mmHg [90-140/60-90 mmHg] *HI* (01/17/15 11:03 AM) Problem List Condition Effective Dates Status Health Status Informant Coronary Active disease(Confirmed) Alzheimer Active disease(Confirmed) Ataxic Active gait(Confirmed) Benign [...] Status: Ordered BD Ultra- Fine Silke Pen [place] BD Ultra- Fine Sil[place], See Instructions, dispense 3 mo supply-dx: 250.00, # 3 boxes, 3 Refill(s), Pharmacy: [facility], dispense 3 mo supply- dx: 250.00 Special Instructions: dispense 3 mo supply-dx: 250.00 Start Date: 07/06/14 Status: Ordered carvedilol 25 mg oral tablet 0.5 tabs, Oral, BID, # 90 tabs, 3 Refill(s), Pharmacy: [facility], 0.5 tabs Oral BID Start Date: 07/06/14 Status: Ordered donepezil 10 mg oral tablet 1 tabs, Oral, Bedtime (once a day), # 90 tabs, 3 Refill(s), Pharmacy: [facility], 1 tabs Oral Bedtime (once a day),x90 days Start Date: 07/06/14 Stop Date: 07/01/15 Status: Ordered Flomax 0.4 mg oral capsule 1 caps, Oral, Daily, # 90 caps, 1 Refill(s), Pharmacy: [facility], 1 caps Oral Daily Start Date: 07/27/14 Status: Ordered isosorbide mononitrate 20 mg oral tablet 1 tabs, Oral, BID, USE THIS SCRIPT. Cancel script for 1.5 tabs BID, # 180 tabs , 1 Refill(s), Pharmacy: [facility], 1 tabs Oral BID,Instr:USE THIS SCRIPT. Cancel script for 1.5 tabs BID Special Instructions: USE THIS SCRIPT. Cancel script for 1.5 tabs BID Start Date: 07/11/14 Status: Ordered Januvia 50 mg oral tablet 1 tabs, Oral, Daily, # 90 tabs, 3 Refill(s), Pharmacy: [facility] Start Date: 07/06/14 Status: Ordered Levemir FlexPen 100 units/mL subcutaneous [...] Daily, # 90 tabs, 3 Refill(s), Pharmacy: [facility], 1 tabs Oral Daily,x90 days Start Date: 07/06/14 Stop Date: 07/01/15 Status: Ordered lisinopril 2.5 mg oral tablet 1 tabs, Oral, Daily, # 30 tabs, 11 Refill(s), Pharmacy: [id number] Start Date: 01/17/15 Status: Ordered lutein 20 [...] # 100 tabs, 3 Refill(s), Pharmacy : [facility], 1 tabs SubLingual q5min,PRN:as needed for chest pain,Instr: not to exceed 3... Special Instructions: not to exceed 3 doses/15 min--if pain persists, seek medical attention Start Date: 10/24/14 Status: Ordered pantoprazole 40 mg oral delayed release tablet 1 tabs, Oral, Every other day, # 90 tabs, 3 Refill(s), Pharmacy: [facility] , 1 tabs Oral Daily Start Date: 07/06/14 Status: Ordered Plavix 75 mg oral tablet 1 tabs, Oral, Daily, # 90 tabs, 3 Refill(s), Pharmacy: [facility], 1 tabs Oral Daily Start Date: 07/06/14 Status: Ordered Spiriva 18 mcg inhalation capsule 1 Each, Inhalation, Daily, as needed for difficulty breathing, use two inhalations of one capsule for each dose, # 90 Each, 1 Refill(s), Pharmacy: [facility], 1 Each Inhalation Daily,PRN:as needed for difficulty breathing, Instr:use two inhalations... Special Instructions: use two inhalations of one capsule for each dose Start Date: 07/27/14 Status: Ordered Vitamin B12 2,500 mcg, Oral, Daily, 0 Refill(s) Start Date: 05/10/14 Status: Ordered Results Chemistry Most recent to 1 oldest [Reference Range]: Sodium Lvl [135-144 139 mEq/L mEq/L] (01/17/15 12:15 PM) Potassium Lvl 4.1 mEq/L [3.5-5.2 mEq/L] (01/17/15 12:15 PM) Chloride [99-111 105 mEq/L mEq/L] (01/17/15 12:15 PM) CO2 [23-31 mEq/L] 26 mEq/L (01/17/15 12:15 PM) AGAP [3-20] 8 (01/17/15 12:15 PM) BUN [8-26 mg/dL] 17 mg/dL (01/17/15 12:15 PM) Glucose Lvl [70-99 111 mg/dL mg/dL] *HI* (01/17/15 12:15 PM) Creatinine Lvl 1.12 mg/dL [0.72-1.25 mg/dL] (01/17/15 12:15 PM) eGFR [>60 mL/min] >60 mL/min 1 (01/17/15 12:15 PM) Calcium Lvl 9.0 mg/dL [8.9-10.5 mg/dL] (01/17/15 12:15 PM) Hgb A1c [4.1-5.6 %] 7.2 % *HI* (01/17/15 12:15 PM) eAvg Glucose 159.9 mg/dL (01/17/15 12:15 PM) 1Result Comment: Multiply eGFR results by 1.21 for race. Immunizations Vaccine Date Refusal Reason influenza virus [...] Patient Education Author: Josias Pat MD Date: 01/17 Family Medicine Diabetes and Exercise Regular exercise is important and can help: Control blood glucose (sugar ). Decrease blood pressure. Control blood lipids (cholesterol, triglycerides ). Improve overall health. BENEFITS FROM EXERCISE Improved fitness. Improved flexibility. Improved endurance. Increased bone density. Weight control. Increased muscle strength. Decreased body fat. Improvement of the body's use of insulin, a hormone. Increased insulin sensitivity. Reduction of insulin needs. Reduced stress and tension. Helps you feel better. People with diabetes who add exercise to their lifestyle gain additional benefits, including: Weight loss. Reduced appetite. Improvement of the body's use of blood glucose. Decreased risk factors for heart disease: Lowering of cholesterol and triglycerides. Raising the level of good cholesterol (high-density lipoproteins, HDL ). Lowering blood sugar. Decreased blood pressure. TYPE 1 DIABETES AND EXERCISE Exercise will usually lower your blood glucose. If blood glucose is greater than 240 mg/dl, check urine ketones. If ketones are present, do not exercise. Location of the insulin injection sites may need to be adjusted with exercise. Avoid injecting insulin into areas of the body that will be exercised. For example, avoid injecting insulin into: The arms when playing tennis. The legs when jogging. For more information, discuss this with your caregiver. Keep a record of: Food intake. Type and amount of exercise. Expected peak times of insulin action. Blood glucose levels. Do this before, during, and after exercise. Review your records with your caregiver. This will help you to develop guidelines for adjusting food intake and insulin amounts. TYPE 2 DIABETES AND EXERCISE Regular physical activity can help control blood glucose. Exercise is important because it may: Increase the body's sensitivity to insulin. Improve blood glucose control. Exercise reduces the risk of heart disease. It decreases serum cholesterol and triglycerides. It also lowers blood pressure. Those who take insulin or oral hypoglycemic agents should watch for signs of hypoglycemia. These signs include dizziness, shaking, sweating, chills, and confusion. Body water is lost during exercise. It must be replaced. This will help to avoid loss of body fluids (dehydration ) or heat stroke. Be sure to talk to your caregiver before starting an exercise program to make sure it is safe for you. Remember, any activity is better than none. Document Released: 01/30/2005 Document Revised: 02/01/2013 Document Reviewed: [facility] Patient Information 2014 [employer] [facility]. No follow up information was provided. Extracted from: Title: DM, HTN Author: Josias Pat MD Date: 01/17/15 Impression and Plan Diagnosis LAURA on CPAP (ICD9 327.23, Discharge, Medical). Hypothyroid (ICD9 244.9, Discharge, Medical). Hyperlipemia (ICD9 272.4, Discharge, Medical). GERD (gastroesophageal reflux disease) (ICD9 530.81, Discharge, Medical). Diabetic nephropathy (ICD9 250.40, Discharge, Medical). Diabetes Type 2, uncontrolled (ICD9 250.00, Discharge, Medical). Coronary disease (ICD9 414.9, Discharge, Medical). CKD (chronic kidney disease) stage 3, GFR 30-59 ml/min (ICD9 585.3, Discharge, Medical). BPH with urinary obstruction (ICD9 600.01, Discharge, Medical). Benign essential hypertension (ICD9 401.1, Discharge, Medical). Ataxic gait (ICD9 781.2, Discharge, Medical). Alzheimer disease (ICD9 331.0, Discharge, Medical). Plan: Reduce your Pantoprazole to every other day. , Two seborrheic keratoses (inflamed and itching) were treated on your back today, using liquid nitrogen, with a freeze, thaw, refreeze technique, which you tolerated well. , Start Lisinopril 2.5 mg daily for your hypertension and diabetic kidney disease. Get lab today. Get lab again in 10-14 days. See me in 6 weeks to recheck your BP and heart.. Orders Orders (Selected) Outpatient Orders Ordered Destruction benign lesion, any methd, 1st: Destruction benign lesions 2-14: Office Visit Level 4 Est 42243: Future (On Hold) BMP: BMP: Hgb A1c: Prescriptions Prescribed lisinopril 2.5 mg oral tablet: 1 tabs, Oral, Daily, 30 tabs. Dx/Order Association Plan: Diagnosis: Alzheimer disease Comment: Modified: Office Visit Level 4 Est [id number]; 01/17/15 11:23:00 SEARCH ANALYST, 26, Coronary disease | Diabetes Type 2, uncontrolled | Diabetic nephropathy | Seborrheic keratoses, inflamed | GERD (gastroesophageal reflux disease) Diagnosis: Ataxic gait Comment: Modified: Office Visit Level 4 Est [id number]; 01/17/15 11:23:00 SEARCH ANALYST, 26, Coronary disease | Diabetes Type 2, uncontrolled | Diabetic nephropathy | Seborrheic keratoses, inflamed | GERD (gastroesophageal reflux disease) Diagnosis: BPH with urinary obstruction Comment: Modified: Office Visit Level 4 Est [id number]; 01/17/15 11:23:00 SEARCH ANALYST, 26, Coronary disease | Diabetes Type 2, uncontrolled | Diabetic nephropathy | Seborrheic keratoses, inflamed | GERD (gastroesophageal reflux disease) Diagnosis: Benign essential hypertension Comment: Modified: Office Visit Level 4 Est [id number]; 01/17/15 11:23:00 SEARCH ANALYST, 26, Coronary disease | Diabetes Type 2, uncontrolled | Diabetic nephropathy | Seborrheic keratoses, inflamed | GERD (gastroesophageal reflux disease) Diagnosis: CKD (chronic kidney disease) stage 3, GFR 30-59 ml/min Comment: Modified: Office Visit Level 4 Est [id number]; 01/17/15 11:23:00 SEARCH ANALYST, 26, Coronary disease | Diabetes Type 2, uncontrolled | Diabetic nephropathy | Seborrheic keratoses, inflamed | GERD (gastroesophageal reflux disease) Diagnosis: Coronary disease Comment: Modified: Office Visit Level 4 Est [id number]; 01/17/15 11:23:00 SEARCH ANALYST, 26, Coronary disease | Diabetes Type 2, uncontrolled | Diabetic nephropathy | Seborrheic keratoses, inflamed | GERD (gastroesophageal reflux disease) Diagnosis: Diabetes Type 2, uncontrolled Comment: Modified: Office Visit Level 4 Est [id number]; 01/17/15 11:23:00 SEARCH ANALYST, 26, Coronary disease | Diabetes Type 2, uncontrolled | Diabetic nephropathy | Seborrheic keratoses, inflamed | GERD (gastroesophageal reflux disease) Diagnosis: Diabetic nephropathy Comment: Modified: Office Visit Level 4 Est [id number]; 01/17/15 11:23:00 SEARCH ANALYST, 26, Coronary disease | Diabetes Type 2, uncontrolled | Diabetic nephropathy | Seborrheic keratoses, inflamed | GERD (gastroesophageal reflux disease) Diagnosis: GERD (gastroesophageal reflux disease) Comment: Modified: Office Visit Level 4 Est [id number]; 01/17/15 11:23:00 SEARCH ANALYST, 26, Coronary disease | Diabetes Type 2, uncontrolled | Diabetic nephropathy | Seborrheic keratoses, inflamed | GERD (gastroesophageal reflux disease) Diagnosis: Hyperlipemia Comment: Modified: Office Visit Level 4 Est [id number]; 01/17/15 11:23:00 SEARCH ANALYST, 26, Coronary disease | Diabetes Type 2, uncontrolled | Diabetic nephropathy | Seborrheic keratoses, inflamed | GERD (gastroesophageal reflux disease) Diagnosis: Hypothyroid Comment: Modified: Office Visit Level 4 Est [id number]; 01/17/15 11:23:00 SEARCH ANALYST, 26, Coronary disease | Diabetes Type 2, uncontrolled | Diabetic nephropathy | Seborrheic keratoses, inflamed | GERD (gastroesophageal reflux disease) Diagnosis: LAURA on CPAP Comment: Modified: Office Visit Level 4 Est [id number]; 01/17/15 11:23:00 SEARCH ANALYST, 26, Coronary disease | Diabetes Type 2, uncontrolled | Diabetic nephropathy | Seborrheic keratoses, inflamed | GERD (gastroesophageal reflux disease) Diagnosis: Seborrheic keratoses, inflamed Comment: Ordered: Destruction benign lesions 2-14; 01/17/15 11:36:00 SEARCH ANALYST, 1 , Seborrheic keratoses, inflamed Destruction benign lesion, any methd, 1st; 11:36:00 SEARCH ANALYST, 1, Seborrheic keratoses, inflamed Modified: Office Visit Level 4 Est [id number]; 01/17/15 11:23:00 SEARCH ANALYST, 26, Coronary disease | Diabetes Type 2, uncontrolled | Diabetic nephropathy | Seborrheic keratoses, inflamed | GERD (gastroesophageal reflux disease) Additional Orders: Comment: Future Orders: BMP,Blood, Routine Collect, 01/17/15, Once, Lab Collect, Diabetic nephropathy, Order for future visit Future Orders: BMP,Blood, Routine Collect, *Est. 01/27/15 +/- 8 days, Once, Lab Collect, Benign essential hypertension, Order for future visit Future Orders: Hgb A1c,Blood, Routine Collect, 01/17/15, Once, Lab Collect, Diabetes Type 2, uncontrolled, Order for future visit Ordered: lisinopril 2.5 mg oral tablet,1 tabs, Oral, Daily, # 30 tabs, 11 Refill(s), Pharmacy: [id number] End of Orders ."
--- OUTSIDE RECORDS SUMMARY | 2017-03-15 13:01 | XMS REPORT | Referral Summary ---
Author Organization Unknown Address Unknown Phone Unavailable Care Team Providers Care Needle Loom Operator Name Role Phone Mac Pat Primary Care Physician [phone] Encounter VC Date(s): 12/14/14 - 12/14/14 Via NIVIA Qureshi, Stew, Family Medicine [address] [place] [address] RUTH Abarca [id number] Discharge Diagnosis: Coronary disease Discharge Diagnosis: Diabetes mellitus type 2, uncontrolled Discharge Diagnosis: Seborrheic keratoses Discharge Diagnosis: Benign essential hypertension Discharge Diagnosis: LAURA on CPAP Discharge Diagnosis: Hyperlipemia Discharge Disposition: Home or Self Care Attending Physician: Josias Pat MD Admitting Physician: Josias Pat MD Vital Signs Most recent to 1 oldest [Reference Range]: Temperature Tympanic 35.5 degC [36.6-38.1 degC] *LOW* (12/14/14 9:53 AM) Peripheral Pulse 68 bpm Rate [60-100 bpm] (12/14/14 9:53 AM) Blood Pressure 130/58 mmHg [90-140/60-90 mmHg] (12/14/14 9:53 AM) Problem List Condition Effective Dates Status [...] (Confirmed) Hyperlipemia(Confirm Active ed) Hypothyroid(Confirme Active d) 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 Cancel script for 1.5 tabs BID, # 180 tabs , 1 Refill(s), Pharmacy: [facility], 1 tabs Oral BID,Instr:USE THIS SCRIPT. Cancel script for 1.5 tabs BID Special Instructions: USE THIS SCRIPT. Cancel script for 1.5 tabs BID Start Date: 07/11/14 Status: Ordered Januvia 50 mg oral tablet 1 tabs, Oral, Daily, # 90 tabs, 3 Refill(s), Pharmacy: [facility] Start Date: 07/06/14 Status: Ordered Levemir [...] Daily, # 90 tabs, 3 Refill(s), Pharmacy: [facility], 1 tabs Oral Daily,x90 days Start Date: 07/06/14 Stop Date: 07/01/15 Status: Ordered lutein 20 mg oral tablet [...] # 100 tabs, 3 Refill(s), Pharmacy : [facility], 1 tabs SubLingual q5min,PRN:as needed for chest pain,Instr: not to exceed 3... Special Instructions: not to exceed 3 doses/15 min--if pain persists, seek medical attention Start Date: 10/24/14 Status: Ordered pantoprazole 40 mg oral delayed release tablet 1 tabs, Oral, Daily, # 90 tabs, 3 Refill(s), Pharmacy: [facility], 1 tabs Oral Daily Start Date: 07/06/14 Status: Ordered Plavix 75 mg oral tablet 1 tabs, Oral, Daily, # 90 tabs, 3 Refill(s), Pharmacy: [facility], 1 tabs Oral Daily Start Date: 07/06/14 Status: Ordered Spiriva 18 mcg inhalation capsule 1 Each, Inhalation, Daily, as needed for difficulty breathing, use two inhalations of one capsule for each dose, # 90 Each, 1 Refill(s), Pharmacy: [facility], 1 Each Inhalation Daily,PRN:as needed for [...] Patient Education Author: Josias Pat MD Date: 12/14 Family Medicine Seborrheic Keratosis Seborrheic keratosis is a common, noncancerous (benign ) skin growth that can occur anywhere on the skin.It looks like "stuck-on," waxy, rough, moe, brown, or black spots on the skin. These skin growths can be flat or raised.They are often called "barnacles" because of their pasted-on appearance.Usually, these skin growths appear in adulthood, around age 30, and increase in number as you age. They may also develop during or following estrogen therapy. Many people may only have one growth appear in their lifetime, while some people may develop many growths. CAUSES It is unknown what causes these skin growths, but they appear to run in families. SYMPTOMS Seborrheic keratosis is often located on the face, chest, shoulders, back, or other areas. These growths are: Usually painless, but may become irritated and itchy. Yellow, brown, black, or other colors. Slightly raised or have a flat surface. Sometimes rough or wart-like in texture. Often waxy on the surface. Round or oval-shaped. Sometimes "stuck-on" in appearance. Sometimes single, but there are usually many growths. Any growth that bleeds, itches on a regular basis, becomes inflamed, or becomes irritated needs to be evaluated by a colorer hides and skins (scrub nurse ). DIAGNOSIS Diagnosis is mainly based on the way the growths appear. In some cases, it can be difficult to tell this type of skin growth from skin cancer. A skin growth tissue sample (biopsy ) may be used to confirm the diagnosis. TREATMENT Most often, treatment is not needed because the skin growths are benign.If the skin growth is irritated easily by clothing or jewelry, causing it to scab or bleed, treatment may be recommended. Patients may also choose to have the growths removed because they do not like their appearance. Most commonly, these growths are treated with cryosurgery. In cryosurgery, liquid nitrogen is applied to "freeze" the growth. The growth usually falls off within a matter of days. A blister may form and dry into a scab that will also fall off. After the growth or scab falls off, it may leave a dark or light spot on the skin. This color may fade over time, or it may remain permanent on the skin. HOME CARE INSTRUCTIONS If the skin growths are treated with cryosurgery, the treated area needs to be kept clean with water and soap. SEEK MEDICAL CARE IF: You have questions about these growths or other skin problems. You develop new symptoms, including: A change in the appearance of the skin growth. New growths. Any bleeding, itching, or pain in the growths. A skin growth that looks similar to seborrheic keratosis. Document Released: 12/13/2011 Document Revised: 02/01/2013 Document Reviewed: [facility] Patient Information 2014 [employer] [facility]. No follow up information was provided. Extracted from: Title: SKs, diabetes Author: Josias Pat MD Date: 12/14/14 Impression and Plan Diagnosis Seborrheic keratoses (ICD9 702.19, Discharge, Medical). LAURA on CPAP (ICD9 327.23, Discharge, Medical). Hyperlipemia (ICD9 272.4, Discharge, Medical). Diabetes mellitus type 2, uncontrolled (ICD9 250.02, Discharge, Medical). Coronary disease (ICD9 414.9, Discharge, Medical). Benign essential hypertension (ICD9 401.1, Discharge, Medical). Plan: 5 SKs were treated today: 3 on the right shoulder, one on the face, and one on the chest: freeze, thaw, refreeze technique used with liquid nitrogen. You tolerated this very well. Continue your present pills., See me 01/17/15 at 11 AM for a recheck appointment., Increase the Levemir to 37 units daily. Continue your routine meds otherwise. . Orders Orders (Selected) Outpatient Orders Ordered Destruction benign lesion, any methd, 1st: Destruction benign lesions 2-14: Destruction benign lesions 2-14: Destruction benign lesions 2-14: Destruction benign lesions 2-14: Modify Office Visit Level 3 Est 85078: Prescriptions Prescribed Levemir FlexPen 100 units/mL subcutaneous solution: See Instructions, 37 units SubCutaneous Bedtime (once a day), 15 mL. Dx/Order Association Plan: Diagnosis: Benign essential hypertension Comment: Modified: Office Visit Level 3 Est 18381; 12/14/14 10:44:00 MULTIMEDIA ASSISTANT, 26, Seborrheic keratoses | Benign essential hypertension | Coronary disease | Diabetes mellitus type 2, uncontrolled | Hyperlipemia Diagnosis: Coronary disease Comment: Modified: Office Visit Level 3 Est 99491; 12/14/14 10:44:00 MULTIMEDIA ASSISTANT, 26, Seborrheic keratoses | Benign essential hypertension | Coronary disease | Diabetes mellitus type 2, uncontrolled | Hyperlipemia Diagnosis: Diabetes mellitus type 2, uncontrolled Comment: Modified: Office Visit Level 3 Est 03996; 12/14/14 10:44:00 MULTIMEDIA ASSISTANT, 26, Seborrheic keratoses | Benign essential hypertension | Coronary disease | Diabetes mellitus type 2, uncontrolled | Hyperlipemia Diagnosis: Hyperlipemia Comment: Modified: Office Visit Level 3 Est 75305; 12/14/14 10:44:00 MULTIMEDIA ASSISTANT, 26, Seborrheic keratoses | Benign essential hypertension | Coronary disease | Diabetes mellitus type 2, uncontrolled | Hyperlipemia Diagnosis: LAURA on CPAP Comment: Modified: Office Visit Level 3 Est 97876; 12/14/14 10:44:00 MULTIMEDIA ASSISTANT, 25, Seborrheic keratoses | Benign essential hypertension | Coronary disease | Diabetes mellitus type 2, uncontrolled | Hyperlipemia Diagnosis: Seborrheic keratoses Comment: Ordered: Destruction benign lesions 2-14; 12/14/14 10:45:00 MULTIMEDIA ASSISTANT, 1 , Seborrheic keratoses Destruction benign lesions 2-14; 12/14/14 10:45:00 MULTIMEDIA ASSISTANT, 1, Seborrheic keratoses Destruction benign lesions 2-14; 12/14/14 10:45:00 MULTIMEDIA ASSISTANT, 1, Seborrheic keratoses Destruction benign lesions 2-14; 12/14/14 10:44:00 MULTIMEDIA ASSISTANT, 1, Seborrheic keratoses Destruction benign lesion, any methd, 1st; 10:44:00 MULTIMEDIA ASSISTANT, 1, Seborrheic keratoses Modified: Office Visit Level 3 Est 52982; 12/14/14 10:44:00 MULTIMEDIA ASSISTANT, 25, Seborrheic keratoses | Benign essential hypertension | Coronary disease | Diabetes mellitus type 2, uncontrolled | Hyperlipemia Additional Orders: Comment: Ordered: Levemir FlexPen 100 units/mL subcutaneous solution,See Instructions, 37 units SubCutaneous Bedtime (once a day), # 15 mL, 3 Refill(s), other reason (Rx), 30 units SubCutaneous Bedtime (once a day),Instr:dispense 3 mo. supply, rotate injection sites--dx: 250.00 End of Orders .
--- NOTE | 2017-03-15 13:28 | ERPDOC ---
Departure Disposition Decision Date: Mar 15, 2017 Disposition Decision Time: 14:54 (YECENIA SAMUEL APRN) Disposition: 01 DISCHARGED HOME, SELF-CARE Impression Impression (YECENIA SAMUEL APRN) Impression: Primary Impression: Jaundice Condition: Stable Seen By: Mid-level only (YECENIA SAMUEL APRN) Referrals: JULIETTE FREGOSO MD (Family) Patient Instructions: Jaundice (ED) Problems/Meds/Labs Reviewed?: Yes Medications reviewed and manag: Yes (YECENIA SAMUEL APRN) Additional Instructions: Your labs today do not show infection, your bilirubin is normal with normal liver enzymes. Follow with your physician or PCP next week for re-evaluation. Follow up care ordered?: Yes Mental Status: Alert, Oriented (YECENIA SAMUEL APRN) HPI - General Medical General Chief Complaint: Skin Rash/Abscess Stated Complaint: YELLOW IN THE FACE,PALMS, LEGS,FEET Time Seen by Provider: 13:28 Source: patient, family (YECENIA SAMUEL APRN) Time Seen by Provider: 13:29 (ESVIN SOTO DO) HPI - General Medical Initial Comments 86YO M brought to ED by family for evaluation of "yellow skin". Daughter says that patient had yellow knees, palms of hands and face today. Says that yellow color has faded some from since earlier today but is still presents. Patient reports no fever, chills, nausea, vomiting, abdominal pain or diarrhea. Daughter says patient did report RLQ abdominal pain yesterday. Family reports no recent illness or new medications. Patient devries been taking simvastatin for "some time". Associated Symptoms: DENIES: chest pain, cough, diaphoresis, fever/chills, headaches, loss of appetite, malaise, nausea/vomiting, rash, seizure, shortness of breath, syncope, weakness (YECENIA SAMUEL APRN) Allergies: Coded Allergies: aspirin (Verified Allergy, Unknown, 03/15/17) glimepiride (Verified Allergy, Unknown, 03/15/17) Past History Past Medical History Metabolic: diabetes, DENIES: hypertension Cardiac: CAD Respiratory: DENIES: asthma GI: DENIES: gallbladder disease, ulcers Male: BPH Neurological: DENIES: seizures Musculoskeletal: DENIES: back pain, neck pain Infectious: DENIES: hepatitis B, hepatitis C Psychological: DENIES: depression (YECENIA SAMUEL APRN) Surgical History Cardiac: cardiac bypass, cardiac cath, cardiac stent (YECENIA SAMUEL APRN) Family History Family PMH: FOUND: other (noncontributory) (YECENIA SAMUEL APRN) Vaccines Hx Pneumococcal Vaccination: No Hx Tetanus Diptheria: No (UNKNOWN) (YECENIA SAMUEL APRN) Social History Household Members: spouse (YECENIA SAMUEL APRN) Review of Systems Constitutional Constitutional: DENIES: chills, dizziness, fever, weakness (YECENIA SAMUEL APRN) Eyes General: DENIES: erythema, exudate Lids/Accessories: DENIES: erythema, swelling (YECENIA SAMUEL APRN) ENMT Ears: DENIES: pain Sinuses: DENIES: congestion, rhinorrhea Mouth/Throat: DENIES: sore throat (YECENIA SAMUEL [employer]ATOR [employer]) Cardiovascular Cardiac: DENIES: chest pain, murmur Rhythm/Rate: DENIES: palpitations (YECENIA SAMUEL APRN) Pulmonary Respiratory: DENIES: cough, dyspnea (YECENIA SAMUEL APRN) GI Upper Abdomen: DENIES: nausea, pain, vomiting Lower Abdomen: DENIES: blood in stool, diarrhea, pain (YECENIA SAMUEL [employer]) General: DENIES: dysuria, pain (YECENIA SAMUEL [employer]) Musculoskeletal General: DENIES: joint pain, pain, tenderness (YECENIA SAMUEL [employer]) Integumentary Skin: color change, see HPI, DENIES: itching, rash (YECENIA SAMUEL [employer]) Neurological General: DENIES: ataxia, change in strength, numbness, paralysis/paresis, weakness (YECENIA SAMUEL APRN) Psychiatric Psychiatric: DENIES: anxiety, depression, nervousness (YECENIA SAMUEL [employer]) Physical Exam General General Nourishment: well nourished, well developed, no acute distress, adult General Body Habitus: disheveled (YECENIA SAMUEL APRN) Vitals and Pain First Documented Vital Signs Date Time Temp Pulse Resp B/P Pulse Ox O2 Delivery O2 Flow Rate FiO2 03/15/17 12:56 97.7 66 18 162/67 98 Room Air (ESVIN SOTO DO) Vitals and Pain Weight: Kilograms: 89.000 Height (feet): 5 Height (inches): 8.00 Triage Pain Scale: (YECENIA SAMUEL [employer]) Eyes (brief) Eyes Brief: found: EOMI, scleral icterus (mild) (YECENIA SAMUEL [employer]) ENMT (brief) ENMT Brief: FOUND: mucosa moist, NOT FOUND: nasal exudate, nasal swelling, petechiae, pharnyx erythema (YECENIA SAMUEL [employer]) Neck (brief) Neck: FOUND: trachea midline, NOT FOUND: adenopathy, tenderness, thyromegaly ( YECENIA SAMUEL [employer]) Respiratory (brief) Respiratory: FOUND: clear all anne, equal bilaterally (YECENIA SAMUEL [employer]) Cardiovascular (brief) Cardiac: FOUND: regular rate, regular rhythm (YECENIA SAMUEL [employer]) Abdomen (brief) Abdominal Brief: FOUND: bowel normo active x4, soft, NOT FOUND: distended, tender (YECENIA SAMUEL [employer]) Musculoskeletal (brief) Musculoskeletal Brief: NOT FOUND: deformity, loss of motion (YECENIA SAMUEL [employer]) Integumentary General: FOUND: dry, warm Color: FOUND: jaundice (palms of hands, face, knees) (YECENIA SAMUEL [employer]) Neurologic (brief) Neurological Brief: FOUND: CN w/o gross def to obs, motor-no gross deficits, sensory-no gross deficits (YECENIA SAMUEL [employer]) Psychiatric (brief) Psychiatric Brief: FOUND: alert, normal affect, oriented (YECENIA SAMUEL [employer] ) Differential Diagnoses Considering: Other (sided pancreatic carcinoma, cholangitis, Choledocholithiasis, Steatophepatitis, Hyperbilrubinemia, Hemytic Anemia, Carotenemia) (YECENIA SAMEUL [employer]) Progress Results/Orders Orders Procedure Category Date Status Time Cbc W/Auto LAB 03/15/17 Complete Diff-Reflex Manual Cmp - Comprehensive LAB 03/15/17 Complete Metabolic Ua, Dip Wreflex LAB 03/15/17 Complete Microsc & [employer] Education Science Teacher 13:45 Lipase LAB 03/15/17 Complete INR LAB 03/15/17 Complete PTT LAB 03/15/17 Complete (ESVIN SOTO DO) Lab Results Laboratory Tests Test 03/15/17 13:50 03/15/17 14:14 Urine Collection Type Voided-not cc-midstr Urine Color Yellow Urine Turbidity Clear Urine pH 5.5 Urine Specific [place] <=1.005 Urine Protein Negative Urine Glucose (UA) Trace Urine Ketones Negative Urine Blood Negative Urine Nitrite Negative Urine Bilirubin Negative Urine Urobilinogen 0.2EU/DL Urine Leukocyte Esterase Negative Urinalysis Comment Microscopic not ind. White Blood Count 6.2T/MM3 Red Blood Count 4.22M/MM3 Hemoglobin 12.5GM/DL Hematocrit 37.7% Mean Corpuscular Volume 89.3UM3 Mean Corpuscular Hemoglobin 29.6UUG Mean Corpuscular Hemoglobin Concent 33.2GM/DL RDW Standard Deviation 43.9FL Platelet Count 159T/MM3 Mean Platelet Volume 10.2UM3 Immature Granulocyte % (Auto) 0.2% Neutrophils (%) (Auto) 52.3% Lymphocytes (%) (Auto) 32.0% Monocytes (%) (Auto) 10.6% Eosinophils (%) (Auto) 4.2% Basophils (%) (Auto) 0.7% Absolute Immature Granulocyte (auto 0.01T/MM3 Absolute Neutrophils (auto) 3.2T/MM3 Absolute Lymphocytes (auto) 2.0T/MM3 Absolute Monocytes (auto) 0.7T/MM3 Absolute Eosinophils (auto) 0.3T/MM3 Absolute Basophils (auto) 0.0T/MM3 Prothromb Time International Ratio 1.17 Activated Partial Thromboplast Time 32.9SEC Turbidity < 20 Sodium Level 144MEQ/L Potassium Level 4.1MEQ/L Chloride Level 105MEQ/L Carbon Dioxide Level 28MEQ/L Anion Gap 11MEQ/L Blood Urea Nitrogen 20.0MG/DL Creatinine 1.0MG/DL Glomerular Filtration Rate Calc 71 BUN/Creatinine Ratio 20RATIO Glucose Level 140MG/DL Calculated Osmolality 282MOSM/KG Calcium Level 9.0MG/DL Total Bilirubin 0.50MG/DL Icterus Index < 2 Aspartate Amino Transf (AST/SGOT) 32U/L Alanine Aminotransferase (ALT/SGPT) 41U/L Alkaline Phosphatase 76U/L Total Protein 6.6G/DL Albumin 3.5G/DL Globulin 3.1G/DL Albumin/Globulin Ratio 1.1RATIO Lipase 100U/L Chemistry Specimen Hemolysis < 15 (ESVIN SOTO DO) Progress Progress Patient labs are unremarkable. I discussed differential dx. with patient, follow up with PCP next week for re- evaluation and possible hepatitis screen. Patient and verbalized understanding of treatment plan, follow up and return precautions. (YECENIA SAMUEL [employer]ATOR [employer]) YECENIA SAMUEL APRN Mar 15, 2017 13:28 ESVIN SOTO DO Mar 15, 2017 16:12
--- OUTSIDE RECORDS SUMMARY | 2017-03-15 13:34 | XMS REPORT | Continuity of Care Document ---
Author Author [facility] Organization [facility] Address Unknown Phone Unavailable Allergies Active Description Code Type Severity Reaction Onset Reported/Identified Relationship to Patient Clinical Status Yes aspirin NKMA N/A epistaxis 03/22/2014 Yes glimepiride NKMA N/A SWELLING 05/11/2014 Yes pioglitazone NKMA N/A N/A 05/11/2014 Medications Problems Procedures Results Encounters ACCT No. Visit Date/Time Discharge Status Pt. Type Provider Facility Loc./Unit Complaint [id number] 02/03/2014 08:15:00 02/03/2014 23 :59:59 CLS Outpatient
[2017-03-15] MEDS ORDERED: LEVO50TA11 PO (13:39)
[2017-03-15] MEDS ORDERED: POTA-12 PO (13:39)
[2017-03-15] MEDS ORDERED: CYAN250010 PO (13:39)
[2017-03-15] MEDS ORDERED: FURO20TA4 PO (13:39)
[2017-03-15] MEDS ORDERED: DONE10TA30 PO (13:42)
[2017-03-15] MEDS ORDERED: INSU100I21 SQ (13:42)
[2017-03-15] MEDS ORDERED: ATOR40TA64 PO (13:44)
[2017-03-15] MEDS ORDERED: ISOS20TA7 PO (13:44)
[2017-03-15] MEDS ORDERED: LISI2.5T2 PO (13:47)
[2017-03-15] MEDS ORDERED: IPRA3AMP AEROSOL (13:47)
[2017-03-15] MEDS ORDERED: CARV25TA2 PO (13:47)
[2017-03-15] MEDS ORDERED: APIX5TAB PO (13:51)
[2017-03-15] MEDS ORDERED: SITA50TA PO (13:51)
[2017-03-15] MEDS ORDERED: PANT40TA27 PO (13:51)
[2017-03-15] MEDS ORDERED: MEMA10TA21 PO (13:51)
[2017-03-15] MEDS ORDERED: CLOP75TA33 PO (13:51)
[2017-03-15 14:01] LABS: BLOOD, URINE NEGATIVE (NEGATIVE); COLOR,URINE YELLOW (YELLOW); LEUKOCYTE ESTERASE ,URINE NEGATIVE (NEGATIVE); NITRITE,URINE NEGATIVE (NEGATIVE); UROBILINOGEN,URINE 0.2 EU/DL (NORMAL)
--- NOTE | 2017-03-15 14:11 | NUR ---
LAB AT BEDSIDE FOR BLOOD DRAW.
[2017-03-15 14:21] LABS: BASOPHILS % (AUTO) 0.7 % (0-2); EOSINOPHILS # (AUTO) 0.3 T/MM3 (0-0.5); EOSINOPHILS % (AUTO) 4.2 % (0-4); HCT - HEMATOCRIT 37.7 % (41-53); HGB - HEMOGLOBIN 12.5 GM/DL (13.5-17.5); IMMATURE GRANULOCYTE # (AUTO) 0.01 T/MM3 (0.00-0.03); IMMATURE GRANULOCYTE % (AUTO) 0.2 % (0.0-0.5); MEAN CORPUSCULAR HGB 29.6 UUG (26-34); MEAN CORPUSCULAR HGB CONC(MCHC 33.2 GM/DL (31-37); MEAN CORPUSCULAR VOLUME 89.3 UM3 (80-100); MEAN PLATELET VOLUME 10.2 UM3 (9.4-12.4); MONOCYTES # (AUTO) 0.7 T/MM3 (0-0.8); MONOCYTES % (AUTO) 10.6 % (0-9.0); NEUTROPHILS #(AUTO)-ABSOLUTE 3.2 T/MM3 (1.8-7.7); NEUTROPHILS % (AUTO) 52.3 % (33-66); RED BLOOD COUNT 4.22 M/MM3 (4.50-5.90); WBC - WHITE BLOOD COUNT 6.2 T/MM3 (4.5-11.0)
[2017-03-15 14:28] LABS: INR 1.17 (0.76-1.04); PROTHROMBIN TIME 12.8 SEC (9.31-12.49); PTT 32.9 SEC (24-36)
[2017-03-15 14:30] LABS: ALBUMIN 3.5 G/DL (3.5-5.0); ALBUMIN/GLOBULIN RATIO 1.1 RATIO (1.1-2.2); ALKALINE PHOSPHATASE 76 U/L (38-126); ALT (SGPT) 41 U/L (21-72); ANION GAP 11 MEQ/L (5-15); AST (SGOT) 32 U/L (17-59); BUN/CREATININE RATIO 20 RATIO (6-26); CHLORIDE 105 MEQ/L (98-107); CO2 - CARBON DIOXIDE 28 MEQ/L (22-30); GLOMERULAR FILTRATION RATE 71; GLUCOSE 140 MG/DL (75-110); LIPASE 100 U/L (23-300); POTASSIUM 4.1 MEQ/L (3.6-5); SODIUM 144 MEQ/L (134-144); TOTAL PROTEIN 6.6 G/DL (6.3-8.2)
[2017-03-15 15:17] VITALS: BP 131/62; PULSE 57; RESP 16; TEMP 97.8; O2SAT 97
== END 2017-03-15 15:17 | disposition home or self-care (01) ==
LOC: ED 12:53
DX: R17 Unspecified jaundice (principal)
CPT/HCPCS: 36415; 80053; 81003; 83690; 85025; 85610; 85730